=== PATIENT | female | born 1940 | race Caucasian/White ===

== ENCOUNTER 2020-08-19 15:26 | Inpatient (IN) | payer OTHER ==
--- OUTSIDE RECORDS SUMMARY | 2020-08-19 15:33 | XMS REPORT | Continuity of Care Document ---
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 AMS Active 10/11/[address] [address] 19 Displaced fracture 06/28/20 01/11/2019 [facility] of shaft of left 18 clavicle, initial encounter for closed fracture Fracture of 06/24/20 01/11/2019 [facility] unspecified part 18 of unspecified clavicle, initial encounter for closed fracture FELL-COLLAR BONE Active 06/24/20 [facility] PAIN 18 CVA LAST NIGHT Active 09/21/19 [facility] 17 CP Active 09/16/[address] 17 CHEST PAIN Active 09/16/19 [facility] 17 Fall from bed, 01/11/2019 [facility] initial encounter Contusion of left 01/11/2019 [facility] front wall of thorax, initial encounter Essential 05/02/2019 [facility] (primary) hypertension 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 Personal history 05/02/2019 [facility] of transient ischemic attack (TIA), and cerebral infarction without residual deficits 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 jail 05/02/2019 [facility] ast (current) use of antithrombotics/an tiplatelets 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 [facility] ast (current) use of aspirin Acute myocardial Resolved Problem 05/02/2019 [facility] infarction of anterior wall (disorder) Cerebrovascular Active Problem 05/02/2019 [facility] accident (disorder) Hypertensive Resolved Problem 05/02/2019 [facility] disorder, systemic arterial (disorder) Myocardial Active Problem 05/02/2019 [facility] infarction (disorder) Hemiplegia, 05/02/2019 [facility] unspecified affecting right dominant side 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 Paroxysmal atrial 05/02/2019 [facility] fibrillation Prediabetes 05/02/2019 [facility] Abnormal results 05/02/2019 [facility] of thyroid function studies NIHSS score 0 05/02/2019 [facility] Hyperlipidemia, 05/02/2019 [facility] unspecified Hypertensive 05/02/2019 [facility] urgency 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 [facility] (current) use of anticoagulants 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 Acute CVA Active Problem 10/28/2016 Family (cerebrovascular Silva gnostic accident) Mixed Active Diagnosis 11/23/2016 Family hyperlipidemia Diagn ostic Acute FL, anterior Active Problem 10/28/2016 Family wall Diagnostic Body mass index Active Diagnosis 10/06/2016 Fam jase (BMI) 23.0-23.9, Silva gnostic adult Benign essential Active Problem 11/23/2016 Fa ari hypertension Diagnos tic Coronary artery Active Diagnosis 11/23/2016 [facility] disease involving Di agnostic [place] coronary artery, angina presence unspecified, unspecified whether [place] or transplanted heart Anxiety Active Diagnosis 11/23/2016 Family Diagnostic Cerebrovascular Active Diagnosis 11/23/2016 Fam jase accident (CVA) Diagn ostic with involvement of left side of body Body mass index Active Diagnosis 10/28/2016 Fam jase (BMI) 22.0-22.9, Silva gnostic adult NON-ST ELEVATION Active [facility] (NSTEMI) MYOCARDIAL INF CEREBRAL Active [facility] st INFARCTION, UNSPECIFIED TRANSIENT CEREBRAL Active [facility] ISCHEMIC ATTACK, UNSP Medications Medication Details Route Status Patient Ordering Order Source Instructions Provider Date metoprolol Notes: (Same Inactive extended as: Toprol 2018 [facility] release XL) May split tab, but do not crush. amLODIPine 5 mg 5 mg = 1 tab, Active oral tablet PO, BID, # 60 2019 [facility] tab, 0 Refill(s), Pharmacy: [facility] [id number] atorvastatin 20 20 mg = 1 Active mg oral tablet tab, PO, 2019 [facility] Bedtime, # 30 tab, 0 Refill(s), Pharmacy: [facility] [id number] lisinopril 5 mg 5 mg = 1 tab, Active oral tablet PO, Daily, # [address] 30 tab, 0 Refill(s), Pharmacy: [facility] [id number] metoprolol 50 50 mg = 1 Active mg oral tablet, tab, PO, BID, 2019 [facility] extended # 60 tab, 0 release Refill(s), Pharmacy: [facility] [id number] apixaban 5 mg 5 mg = 1 tab, Active oral tablet PO, Q12H, # 2019 [facility] 60 tab, 0 Refill(s), Pharmacy: [facility] [id number] Eliquis Notes: Same Inactive as: Eliquis 2019 [facility] metoprolol Notes: (Same Inactive extended as: Toprol 2019 [facility] release XL) May split tab, but do not crush. Saline Flush Notes: (Same No Longer 0.9% as: BD Active 2018 [facility] Posiflush) Aspirin 325 MG Notes: Take No Longer Oral Tablet with food. Active 2018 [facility] clopidogrel Notes: (Same No Longer As: Plavix) Active 2018 [facility] metoprolol Notes: (Same Inactive extended as: Toprol 2019 [facility] release XL) Do Not Crush Lisinopril Notes: (Same No Longer as: Prinivil, Active 2018 [facility] Zestril) Aspirin Notes: Do not No Longer crush or Active 2018 [facility] chew. (Same As: Ecotrin) Saline Flush Notes: (Same No Longer 0.9% as: BD Active 2018 [facility] Posiflush) atorvastatin Notes: (Same No Longer As: Lipitor) Active 2018 [facility] Saline Flush Notes: (Same No Longer 0.9% as: BD Active 2018 [facility] Posiflush) Enoxaparin 59.091 mg, Inactive Route: SUB-Q, 2018 [facility] [id number], Dosing Weight 59.091, kg, Start date: 10/11/18 19:00:00 SHOE POLISHER, Duration: 30 day, Stop date: 11/10/18 7:00:00 SHOE POLISHER Acetaminophen Notes: (Same No Longer 325 MG / as: [place] Active 2018 [facility] Hydrocodone 325/5) Do Bitartrate 5 MG not exceed Oral Tablet 4gm/day of acetaminophen . Ondansetron Notes: (Same No Longer as: Zofran) Active 2018 [facility] Saline Flush Notes: (Same No Longer 0.9% as: BD Active 2018 [facility] Posiflush) Aspirin 81 mg, Daily, Active 0 Refill(s) 2018 [facility] Atenolol 25 MG 25 mg = 1 No Longer Oral Tablet tab, PO, Active 2018 [facility] Daily, # 30 tab, 0 Refill(s) metoprolol Notes: (Same Inactive tartrate as: 2018 [facility] Lopressor) Amlodipine Notes: (Same No Longer as: Norvasc) Active 2018 [facility] Aspirin 325 MG Notes: Take Inactive Oral Tablet with food. 2018 [facility] Metoprolol Notes: (Same No Longer as: Active 2018 [facility] Lopressor) Push over 2 minutes Nitroglycerin Notes: (Same No Longer 0.4 MG as:Nitroquick Active 2018 [facility] Sublingual , Nitrostat) Tablet "Do Not Crush" Sublingual tablet Hydralazine Notes: (Same No Longer Hydrochloride as: Active 2018 [facility] 25 MG Oral Apresoline) Tablet May interfere w/enteral feedings Take With Food. Labetalol Notes: (Same No Longer as: Active 2018 [facility] Normodyne, Trandate) Push over 2 minutes Give bolus over 2-3 minutes. Labetalol 20 mg, Route: Inactive IVP, Drug 2018 [facility] form: INJ, ONCE, Dosing Weight 59.091, kg, Priority: STAT, Start date: 10/11/18 13:46:00 SHOE POLISHER, Stop date: 10/11/18 13:46:00 SHOE POLISHER Acetaminophen 1 tab, PO, Inactive 300 MG / Q6H, PRN 2017 [facility] Codeine Pain, # 15 Phosphate 30 MG tab, 0 Oral Tablet Refill(s) [Tylenol with Codeine #3] Acetaminophen 1 tab, Route: Inactive 325 MG / PO, Drug 2017 [facility] Hydrocodone Form: TAB, Bitartrate 5 MG Dosing Weight Oral Tablet 61.364, kg, [[place] 5/325] ONCE, STAT, Start date: 06/24/18 10:02:00 CDT, Stop date: 06/24/18 10:02:00 CDT Lexapro 1 tablets Orally Active 5 MG Orally Nathani Once a day 2017 [facility] atorvastatin Notes: (Same No Longer as: Lipitor) Active 2016 [facility] clopidogrel Notes: (Same No Longer As: Plavix) Active 2016 [facility] Saline Flush Notes: (Same No Longer 0.9% as: BD Active 2016 [facility] Posiflush) Aspirin 325 MG Notes: (Do No Longer Enteric Coated Not Crush) Active 2016 [facility] ast Tablet Do not crush or chew. Sodium Chloride 100 mL, 100 No Longer 0.154 MEQ/ML ml/hr, Infuse Active 2016 [place] Injectable Over: 1 hr, Solution Route: IV, 100, Drug form: INJ, ONCE, Priority: STAT, Dosing Weight 59.091 kg, Start date: 09/21/16 23:10:00 SHOE POLISHER, Duration: 1 doses or times, Stop date: 09/21/16 23:10:00 SHOE POLISHER Enoxaparin Notes: (Same No Longer as: Lovenox) Active 2016 [facility] Saline Flush Notes: (Same No Longer 0.9% as: BD Active 2016 [facility] Posiflush) Docusate Sodium Notes: (Same No Longer H 100 MG Oral as: Colace) Active 2016 [facility] t Capsule (Do Not [Colace] Crush) Acetaminophen Notes: Same No Longer 325 MG / as [place] Active 2016 [facility] Hydrocodone 325-7.5mg Bitartrate 7.5 Do not exceed MG Oral Tablet 4gm/day of [[place] 7.5/325] acetaminophen . Morphine Notes: (Same No Longer as:MORPhine Active 2016 [facility] Sulfate) GI cocktail Notes: G.I. No Longer Cocktail = Active 2016 [facility] antacid with simethicone 22.5 mL - lidocaine viscous 7.5 mL Protonix Notes: Tablet No Longer should not be Active 2016 [facility] chewed or crushed. (Same as: Protonix) Hydralazine Notes: (Same No Longer as: Active 2016 [facility] Apresoline) Push over 5 minutes Zofran Notes: (Same No Longer as: Zofran) Active 2016 [facility] MEDICATION WASTE Product Size: 4 mg Product Wasted: ___ mg Restoril Notes: (Same No Longer As: Restoril) Active 2016 [facility] tramadol Notes: Not to No Longer hydrochloride exceed Active 2016 [facility] 50 MG Oral 400mg/day. Tablet (Same As: Ultram) Acetaminophen Notes: Do not No Longer exceed [address] [facility] gm/day. (Same as: Tylenol) Clonidine Notes: (Same No Longer Hydrochloride As: Catapres) Active 2016 [facility] 0.1 MG Oral Tablet Aspirin Notes: Take Inactive with food. 2016 [facility] Aspirin 325 mg, Inactive Route: PO, 2016 [facility] Drug form: TAB, ONCE, Dosing Weight 59.091, kg, Priority: STAT, Start date: 09/21/16 17:20:00 SHOE POLISHER, Stop date: 09/21/16 17:20:00 SHOE POLISHER Saline Flush Notes: (Same Inactive 0.9% as: BD 2016 [facility] Posiflush) Amlodipine Notes: (Same Inactive as: Norvasc) 2016 [facility] metoprolol 25 mg = 1 Active tartrate 25 mg tab, PO, 2016 [facility] oral tablet Q12H, # 60 tab, 0 Refill(s) lisinopril 20 20 mg = 1 Active mg oral tablet tab, PO, 2016 [facility] Q12H, # 60 tab, 0 Refill(s) clopidogrel 75 75 mg = 1 Active mg oral tablet tab, PO, 2016 [facility] Daily, # 30 tab, 0 Refill(s) atorvastatin 40 80 mg = 2 Active mg oral tablet tab, PO, 2016[facility] Bedtime, # 60 tab, 0 Refill(s) Aspirin 325 MG 325 mg = 1 Active Enteric Coated tab, PO, 2016 [facility] Tablet Daily, # 30 tab, 0 Refill(s) amLODIPine 5 mg 5 mg = 1 tab, Active oral tablet PO, BID, # 60 2016 [facility] ast tab, 0 Refill(s) clopidogrel Notes: (Same Inactive As: Plavix) 2016 [facility] Lovenox Notes: (Same No Longer as: Lovenox) Active 2016 [facility] Amlodipine Notes: (Same No Longer as: Norvasc) Active 2016 [facility] Ondansetron 4 mg, Route: Inactive IVP, Q8H, 2016 [facility] Dosing Weight 59.318, kg, PRN Nausea & Vomiting, Start date: 09/17/16 15:48:00 SHOE POLISHER, Duration: 30 day, Stop date: 10/17/16 15:47:00 SHOE POLISHER Sodium Chloride 750 mL, Rate: No Longer 0.154 MEQ/ML 75 ml/hr, Active 2016 [facility] Injectable Infuse over: Solution 10 hr, Route: IV, Dosing Weight 59.318 kg, Total Volume: 750, Start date: 09/17/16 15:48:00 SHOE POLISHER, Duration: 10 hr, Stop date: 09/18/16 1:47:00 SHOE POLISHER Acetaminophen Notes: Do not No Longer exceed [address] [facility] gm/day. (Same as: Tylenol) acetaminophen-c Notes: Do not No Longer odeine #[address] [facility] 4gm/day of acetaminophen . (Same as: Tylenol with Codeine # 3) metoprolol Notes: (Same No Longer tartrate as: Active 2016 [facility] Lopressor) Lisinopril Notes: (Same No Longer as: Prinivil, Active 2016 [facility] Zestril) Saline Flush Notes: (Same No Longer 0.9% as: BD Active 2016 [facility] Posiflush) Aspirin 325 MG Notes: (Do No Longer Enteric Coated Not Crush) Active 2016 [facility] ast Tablet Do not crush or chew. Sodium Chloride 250 mL, 250 Inactive 0.154 MEQ/ML ml/hr, Infuse 2016 [place] Injectable Over: 1 hr, Solution Route: IV, 250, Drug form: INJ, ONCALL, Priority: Routine, Dosing Weight 59.318 kg, Start date: 09/17/16 8:00:00 SHOE POLISHER, Duration: 1 doses or times, Stop date: 10/17/16 0:00:00 SHOE POLISHER Sodium Chloride 750 mL, Rate: No Longer 0.154 MEQ/ML 75 ml/hr, Active 2016 [facility] Injectable Infuse over: Solution 10 hr, Route: IV, Dosing Weight 59.318 kg, Total Volume: 750, Start date: 09/17/16 7:52:00 SHOE POLISHER, Duration: 24 hr, Stop date: 09/18/16 7:51:00 SHOE POLISHER Lipitor Notes: (Same No Longer as: Lipitor) Active 2016 [facility] amoxicillin 875 875 mg = 1 No Longer mg oral tablet tab, PO, Active 2016 [facility] Q12H, 0 Refill(s) Saline Flush Notes: (Same No Longer 0.9% as: BD Active 2016 [facility] Posiflush) Morphine Notes: (Same No Longer as:MORPhine Active 2016 [facility] Sulfate) Protonix Notes: Tablet No Longer should not be Active 2016 [facility] chewed or crushed. (Same as: Protonix) Hydralazine Notes: (Same No Longer as: Active 2016 [facility] Apresoline) Push over 5 minutes Lopressor Notes: (Same No Longer as: Active 2016 [facility] Lopressor) Push over 2 minutes GI cocktail Notes: G.I. No Longer Cocktail = Active 2016 [facility] antacid with simethicone 22.5 mL - lidocaine viscous 7.5 mL Acetaminophen Notes: Do not No Longer exceed [address] [facility] gm/day. (Same as: Tylenol) Zofran Notes: (Same No Longer as: Zofran) Active 2016 [facility] MEDICATION WASTE Product Size: 4 mg Product Wasted: ___ mg Docusate Sodium Notes: (Same No Longer H 100 MG Oral as: Colace) Active 2016 [facility] Capsule (Do Not [Colace] Crush) Acetaminophen Notes: Same No Longer 325 MG / as [place] Active 2016 [facility] Hydrocodone 325-7.5mg Bitartrate 7.5 Do not exceed MG Oral Tablet 4gm/day of [[place] 7.5/325] acetaminophen . Nitroglycerin Notes: (Same No Longer as:Nitroquick Active 2016 [facility] , Nitrostat) "Do Not Crush" Sublingual tablet Labetalol Notes: (Same No Longer as: Active 2016 [facility] Normodyne, Trandate) Push over 2 minutes Give bolus over 2-3 minutes. Heparin - one 3,600 unit, No Longer time bolus for 3.6 mL, Active 2016 [facility] ACS Route: IVP, Drug form: INJ, ONCE, Dosing Weight 61.364, kg, Priority: STAT, Start date: 09/16/16 23:28:00 SHOE POLISHER, Stop date: 09/16/16 23:28:00 SHOE POLISHER Heparin 60 Route: IVP, No Longer unit/kg Bolus PRN, 3,600 Active 2016 [facility] (Heparin Dosing unit, 3.6 mL, Weight) Drug form: INJ, PRN, Heparin Protocol, Start date: 09/16/16 23:28:00 SHOE POLISHER Stop date: 10/16/16 23:27:00 SHOE POLISHER, 30 day Heparin 30 Route: IVP, No Longer unit/kg Bolus PRN, 1,800 Active 2016 [facility] (Heparin Dosing unit, 1.8 mL, Weight) Drug form: INJ, PRN, Heparin Protocol, Start date: 09/16/16 23:28:00 SHOE POLISHER Stop date: 10/16/16 23:27:00 SHOE POLISHER, 30 day heparin 500 mL, Rate: No Longer additive 25,000 14.55 ml/hr, Active 2016 [facility] [12 Infuse over: unit/kg/hr] + 34.4 hr, Premix Diluent Route: IV, Dextrose 5% 500 Dosing Weight mL 60.64 kg, Total Volume: 500 mL, Start date: 09/16/16 23:28:00 SHOE POLISHER, Duration: 30 day, Stop date: 10/16/16 23:27:00 SHOE POLISHER Aspirin Notes: Take No Longer with food. Active 2016 [facility] Saline Flush Notes: (Same No Longer 0.9% as: BD Active 2016 [facility] Posiflush) Amlodipine 1 tablet Orally Active 5 MG Orally Nathani Family Besylate Once a day Diagnostic Metoprolol 1 tablet with Orally Active 25 MG Orally Nathani Fa ari Tartrate food Twice a day Diagnostic Plavix 1 tablet Orally Active 75 MG Orally Nathani Family Once a day Diagnostic Atorvastatin 1 tablet Orally Active 80 MG Orally Nathani Famil y Calcium Once a day Diagnostic Lisinopril 1 tablet Orally Active 20 MG Orally Nathani Family once a day Diagnostic Aspirin 1 tablet Orally Active 325 MG Orally Nathani Family Once a day Diagnostic Lisinopril 1 tablet Orally Active 40 MG Orally Nathani Family once a day Diagnostic Lexapro 1 tablets Orally Active 5 MG Orally Nathani Family Once a day Diagnostic Allergies, Adverse Reactions, Alerts Substance Category Reaction Severity Reaction Status Date Comments S ource type Reported Sulfa Adverse Info Not Adverse Active Famil y antibiotics Reaction Available Reaction 7 Diagnostic sulfa drugs Assertion Drug Active allergy [facility] Immunizations No Data Provided for This Section Results Order Name Results Value Reference Date Interpretation Comments [facility] ELECTROLYT AGAP 9.6 10.0 - 10/13 ES 20.0 [facility] ELECTROLYT Glucose Lvl 96 70 - 99 10/13 [facility] ELECTROLYT BUN 13 7 - 22 10/13 [facility] ELECTROLYT Creatinine 0.83 0.50 - 10/13 ES Lvl 1.40 /2018 [facility] ELECTROLYT Sodium Lvl 141 135 - 145 10/13 [facility] ELECTROLYT Potassium 3.6 3.5 - 5.1 10/13 ES Lvl [facility] Chloride Lvl 105 95 - 109 10/13 [facility] ELECTROLYT CO2 30 24 - 32 10/13 [facility] ELECTROLYT Calcium Lvl 9.1 8.5 - 10.5 10/13 [facility] ELECTROLYT eGFR 68 10/13 [facility] Comment: The [facility] eGFR is calculated using the CKD-EPI formula. In most young, healthy individuals the eGFR will be >90 mL/min/1.73m2 . The eGFR declines with age. An eGFR of 60-89 may be normal in some populations, particularly the elderly, for whom the CKD-EPI formula has not been extensively validated. Use of the eGFR is not recommended in the following populations:< br/>
[place]oula viduals with unstable creatinine concentration s, including patients and those with serious co-morbid conditions.<b r/>
Patie nts with extremes in muscle mass or diet.

The data above are obtained from the National Kidney Disease Education Program (NKDEP) which additionally recommends that when the eGFR is used in patients with extremes of body mass index for purposes of drug dosing, the eGFR should be multiplied by the estimated BMI. HEMATOLOGY Segs 70.6 45.0 - 02 MH 75.0 /2018 [facility] HEMATOLOGY Lymphocytes 15.9 20.0 - 10/13 MH 40.0 /2018 [facility] HEMATOLOGY Monocytes 10.2 2.0 - 12.0 / /2018 [facility] HEMATOLOGY Eosinophils 2.8 0.0 - 4.0 / /2018 [facility] HEMATOLOGY Basophils 0.5 0.0 - 1.0 10/13 [facility] HEMATOLOGY Neutrophils 5.3 1.5 - 8.1 10/13 MH # /2018 [facility] HEMATOLOGY Lymphocytes 1.2 1.0 - 5.5 10/13 MH # /2018 [facility] HEMATOLOGY Monocytes # 0.8 0.0 - 0.8 10/13 [facility] HEMATOLOGY Eosinophils 0.2 0.0 - 0.5 10/13 MH # /2018 [facility] HEMATOLOGY WBC 7.5 3.7 - 10.4 10/13 /2018 [facility] HEMATOLOGY RBC 4.07 4.20 - 10/13 5.40 /2018 [facility] HEMATOLOGY Hgb 12.9 12.0 - 10/13 16.0 /2018 [facility] HEMATOLOGY Hct 38.8 36.0 - 10/13 48.0 /2018 [facility] HEMATOLOGY MCV 95.4 80.0 - 10/[address] [facility] HEMATOLOGY MCH 31.7 27.0 - 02 MH 31.0 /2018 [facility] HEMATOLOGY MCHC 33.2 32.0 - 10/13 36.0 /2018 [facility] HEMATOLOGY RDW 14.6 11.5 - 10/[address] [facility] HEMATOLOGY Platelet 249 133 - 450 10/13 [facility] HEMATOLOGY MPV 8.0 7.4 - 10.4 10/13 [facility] CEFUROXIME Culture: >100,000 CFU/mL Escherichia coli 10/12 [facility] :[facility]US[facility]:PT:I Urine 10,000 - 50,000 CFU/mL Skin Melly /2018 [facility] [place] QN:SERGIO CEFUROXIME Escherichia Escherichi 10/12 :[facility] [place]PT:I coli a coli /2018 [facility] SOLATE[place] QN:SERGIO URINE AND UA Color Yellow Yellow 10/12 STOOL *NA* [facility] (10/12/18 9:49 AM) URINE AND UA Turbidity Slight Clear 10/12 STOOL *ABN* [facility] (10/12/18 9:49 AM) URINE AND UA Spec Grav 1.016 <=1.030 10/12 STOOL /2018 [facility] URINE AND UA pH 6.0 5.0 - 8.0 10/12 [facility] URINE AND UA Protein Negative Negative 10/12 [facility] (10/12/18 9:49 AM) /[address] URINE AND UA Glucose Negative Negative 10/12 STOOL *NA [facility] (10/12/18 9:49 AM) URINE AND UA Ketones Negative Negative 10/12 STOOL * [facility] (10/12/18 9:49 AM) URINE AND UA Bili Negative Negative 10/12 STOOL *NA [facility] (10/12/18 9:49 AM) URINE AND UA Blood Negative Negative 10/12 [facility] (10/12/18 9:49 AM) [facility] URINE AND UA <=1.0 0.1 - 1.0 10/12 STOOL Urobilinogen mg/dL [facility] URINE AND UA Nitrite Positive Negative 10/12 STOOL *ABN [facility] (10/12/18 9:49 AM) URINE AND UA Leuk Est Large Negative 10/12 STOOL *ABN* [facility] (10/12/18 9:49 AM) URINE AND UA Sq Epi Occasional Few /LPF 10/12 STOOL /LPF /2018 [facility] URINE AND UA WBC 15 0 - 5 10/12 [facility] URINE AND UA RBC 3 0 - 2 10/[address] [facility] URINE AND UA Bacteria Occasional None Seen 10/12 STOOL /HPF /HPF [facility] URINE AND UA Mucus Few /LPF None Seen 10/12 STOOL /LPF /2018 [facility] CHEM PANEL Creatinine 0.80 0.50 - 10/12 Lvl 1.40 /2018 [facility] CHEM PANEL Glucose Lvl 91 70 - 99 02/ [facility] CHEM PANEL BUN 15 7 - 22 / [facility] CHEM PANEL eGFR 70 / Result Comment: The [facility] eGFR is calculated using the CKD-EPI formula. In most young, healthy individuals the eGFR will be >90 mL/min/1.73m2 . The eGFR declines with age. An eGFR of 60-89 may be normal in some populations, particularly the elderly, for whom the CKD-EPI formula has not been extensively validated. Use of the eGFR is not recommended in the following populations:< br/>
[place] viduals with unstable creatinine concentration s, including patients and those with serious co-morbid conditions.<b r/>
Patie nts with extremes in muscle mass or diet.

The data above are obtained from the National Kidney Disease Education Program (NKDEP) which additionally recommends that when the eGFR is used in patients with extremes of body mass index for purposes of drug dosing, the eGFR should be multiplied by the estimated BMI. CHEM PANEL Sodium Lvl 142 135 - 145 10/12 [facility] CHEM PANEL Potassium 3.9 3.5 - 5.1 10/12 [facility] CHEM PANEL CO2 28 24 - 32 10/12 [facility] CHEM PANEL Calcium Lvl 8.8 8.5 - 10.5 10/12 [facility] CHEM PANEL Chloride Lvl 107 95 - 109 10/12 [facility] CHEM PANEL AGAP 10.9 10.0 - 02/ MH 20.0 [facility] ELECTROLYT AGAP 10.9 10.0 - / MH ES 20.0 [facility] ELECTROLYT Glucose Lvl 91 70 - 99 / MH [facility] ELECTROLYT BUN 15 7 - 22 / [facility] ELECTROLYT Creatinine 0.80 0.50 - 02/ MH ES Lvl 1.40 /2018 [facility] ELECTROLYT Sodium Lvl 142 135 - 145 10/12 [facility] ELECTROLYT Potassium 3.9 3.5 - 5.1 10/12 [facility] ES Lvl [facility] ELECTROLYT Chloride Lvl 107 95 - 109 / [facility] ELECTROLYT CO2 28 24 - 32 / MH ES [facility] ELECTROLYT Calcium Lvl 8.8 8.5 - 10.5 10/[address] [facility] ELECTROLYT eGFR 70 10/12 Result Comment: The [facility] eGFR is calculated using the CKD-EPI formula. In most young, healthy individuals the eGFR will be >90 mL/min/1.73m2 . The eGFR declines with age. An eGFR of 60-89 may be normal in some populations, particularly the elderly, for whom the CKD-EPI formula has not been extensively validated. Use of the eGFR is not recommended in the following populations:< br/>
Roula viduals with unstable creatinine concentration s, including patients and those with serious co-morbid conditions.<b r/>
Patie nts with extremes in muscle mass or diet.

The data above are obtained from the National Kidney Disease Education Program (NKDEP) which additionally recommends that when the eGFR is used in patients with extremes of body mass index for purposes of drug dosing, the eGFR should be multiplied by the estimated BMI. HEMATOLOGY WBC 6.2 3.7 - 10.4 10/12 [facility] HEMATOLOGY RBC 3.80 4.20 - 10/12 MH 5.40 /2018 [facility] HEMATOLOGY Hgb 12.0 12.0 - 10/[address] [facility] HEMATOLOGY Hct 36.1 36.0 - 10/[address] [facility] HEMATOLOGY MCV 94.9 80.0 - 10/12 98.0 /2018 [facility] HEMATOLOGY MCH 31.7 27.0 - 10/12 31.0 /2018 [facility] HEMATOLOGY MCHC 33.4 32.0 - 10/12 36.0 /2018 [facility] HEMATOLOGY RDW 14.2 11.5 - 02 MH 14.5 /2019 [facility] HEMATOLOGY Platelet 233 133 - 450 10/12 [facility] HEMATOLOGY MPV 8.1 7.4 - 10.4 10/12 [facility] HEMATOLOGY Segs 65.0 45.0 - 02/ MH 75.0 /2019 [facility] HEMATOLOGY Lymphocytes 20.1 20.0 - [address] [facility] HEMATOLOGY Monocytes 11.0 2.0 - 12.0 10/12 [facility] HEMATOLOGY Eosinophils 3.1 0.0 - 4.0 10/12 [facility] HEMATOLOGY Basophils 0.8 0.0 - 1.0 10/12 [facility] HEMATOLOGY Neutrophils 4.0 1.5 - 8.1 02/ MH # /2018 [facility] HEMATOLOGY Lymphocytes 1.3 1.0 - 5.5 / MH # /2018 [facility] HEMATOLOGY Monocytes # 0.7 0.0 - 0.8 / MH /2018 [facility] HEMATOLOGY Eosinophils 0.2 0.0 - 0.5 / MH # /2018 [facility] LIPIDS Trig 76 <=149 /03 MH mg/dL /2018 [facility] LIPIDS Chol 134 <=199 / MH mg/dL /2018 [facility] LIPIDS HDL 47 >=61 mg/dL 10/12 MH /2018 [facility] LIPIDS LDL 72 <=99 mg/dL 10/12 [facility] (Calculated) [facility] LIP[facility] VLDL 15 10/12 /2018 [facility] LIPIDS CHD Risk 2.85 3.90 - 10/[address] [facility] SPECIAL Hgb A1C 5.9 <=5.6 % 10/12 CHEMISTRY /2018 [facility] CARDIAC Troponin-I <0.02 0.00 - 10/[address] [facility] LIPIDS CHD Risk 2.79 3.90 - 10/12 5.80 [facility] LIPIDS Trig 71 <=149 /03 mg/dL /2018 [facility] LIPIDS Chol 148 <=199 / mg/dL /2018 [facility] LIPIDS HDL 53 >=61 mg/dL 10/12 /2018 [facility] LIPIDS LDL 81 <=99 mg/dL 10/12 [facility] (Calculated) [facility] LIPIDS VLDL 14 10/12 /2018 [facility] SPECIAL Hgb A1C 5.8 <=5.6 % 10/12 CHEMISTRY /2018 [facility] CARDIAC Troponin-I <0.02 0.00 - [address] [facility] CHEM PANEL Calcium Lvl 9.2 8.5 - 10.5 10/12 /2018 [facility] CHEM PANEL Magnesium 1.8 1.8 - 2.4 / Lvl /2018 [facility] CHEM PANEL Phosphorus 2.9 2.5 - 4.5 10/12 /2018 [facility] HEMATOLOGY PT 13.7 12.0 - 02/ MH 14.7 /2018 [facility] HEMATOLOGY PTT 30.3 22.9 - 02/ 35.8 /2019 [facility] HEMATOLOGY INR 1.07 0.85 - 02/ 1.17 [facility] URINE AND UA Color Yellow Yellow 10/11 STOOL *NA* /2018 [facility] (10/11/18 1:58 PM) URINE AND UA Turbidity Slight Clear 10/11 STOOL *ABN* [facility] (10/11/18 1:58 PM) URINE AND UA Spec Grav 1.009 <=1.030 10/[address] [facility] URINE AND UA pH 7.0 5.0 - 8.0 10/[address] [facility] URINE AND UA Protein Negative Negative 10/11 [facility] (10/11/18 1:58 PM) /[address] URINE AND UA Glucose Negative Negative 10/11 STOOL *NA [facility] (10/11/18 1:58 PM) URINE AND UA Ketones Negative Negative 10/11 STOOL *NA [facility] (10/11/18 1:58 PM) URINE AND UA Bili Negative Negative 10/11 STOOL *NA [facility] (10/11/18 1:58 PM) URINE AND UA Blood Small Negative 10/11 STOOL * [facility] (10/11/18 1:58 PM) URINE AND UA <=1.0 0.1 - 1.0 10/11 STOOL Urobilinogen mg/dL /2018 [facility] URINE AND UA Nitrite Positive Negative 10/11 STOOL *ABN [facility] (10/11/18 1:58 PM) URINE AND UA Leuk Est Trace Negative 10/11 STOOL *ABN [facility] (10/11/18 1:58 PM) URINE AND UA Sq Epi Occasional Few /LPF 10/11 STOOL /LPF [facility] URINE AND UA WBC 1 0 - 5 10/11 [facility] URINE AND UA RBC 3 0 - 2 10/[address] [facility] URINE AND UA Bacteria Occasional None Seen 10/11 STOOL /HPF /HPF [facility] URINE AND UA Mucus Few /LPF None Seen 10/11 STOOL /LPF [facility] CARDIAC Troponin-I <0.02 0.00 - 10/[address] [facility] CARDIAC BNP 364 <=100 10/11 ENZ[address] pg/mL [facility] CHEM PANEL Glucose Lvl 94 70 - 99 10/11 [facility] CHEM PANEL BUN 14 7 - 22 10/11 [facility] CHEM PANEL Creatinine 0.97 0.50 - 10/11 Lvl 1.40 /2018 [facility] CHEM PANEL Sodium Lvl 138 135 - 145 10/11 [facility] CHEM PANEL Potassium 4.4 3.5 - 5.1 10/11 Lvl [facility] CHEM PANEL Chloride Lvl 103 95 - 109 10/11 [facility] CHEM PANEL CO2 29 24 - 32 10/11 [facility] CHEM PANEL Total 7.9 6.4 - 8.4 10/11 [facility] CHEM PANEL Albumin Lvl 4.0 3.5 - 5.0 10/11 [facility] CHEM PANEL ALT 21 0 - 65 10/11 [facility] CHEM PANEL AST 48 0 - 37 10/11 [facility] CHEM PANEL Alk Phos 69 39 - 136 10/11 [facility] CHEM PANEL Bili Total 0.8 0.2 - 1.3 10/11 [facility] CHEM PANEL AGAP 10.4 10.0 - 02 MH 20.0 /2018 [facility] CHEM PANEL B/C Ratio 14 6 - 25 10/11 [facility] CHEM PANEL Globulin 3.9 2.7 - 4.2 10/11 [facility] CHEM PANEL A/G Ratio 1.0 0.7 - 1.6 10/11 [facility] CHEM PANEL eGFR 56 10/11 Result Comment: The [facility] eGFR is calculated using the CKD-EPI formula. In most young, healthy individuals the eGFR will be >90 mL/min/1.73m2 . The eGFR declines with age. An eGFR of 60-89 may be normal in some populations, particularly the elderly, for whom the CKD-EPI formula has not been extensively validated. Use of the eGFR is not recommended in the following populations:< br/>
Roula viduals with unstable creatinine concentration s, including patients and those with serious co-morbid conditions.<b r/>
Patie nts with extremes in muscle mass or diet.

The data above are obtained from the National Kidney Disease Education Program (NKDEP) which additionally recommends that when the eGFR is used in patients with extremes of body mass index for purposes of drug dosing, the eGFR should be multiplied by the estimated BMI. CHEM PANEL Magnesium 1.9 1.8 - 2.4 10/11 [facility] CHEM PANEL Phosphorus 3.0 2.5 - 4.5 10/11 [facility] HEMATOLOGY WBC 8.3 3.7 - 10.4 02/ /2019 [facility] HEMATOLOGY RBC 4.28 4.20 - 02/ MH 5.40 /2019 [facility] HEMATOLOGY Hgb 13.4 12.0 - 02/ MH 16.0 /2018 [facility] HEMATOLOGY Hct 40.9 36.0 - 02/ MH 48.0 /2018 [facility] HEMATOLOGY MCV 95.6 80.0 - 02/ MH 98.0 /2019 [facility] HEMATOLOGY MCH 31.3 27.0 - 02/ MH 31.0 /2018 [facility] HEMATOLOGY MCHC 32.7 32.0 - 02/ MH 36.0 /2018 [facility] HEMATOLOGY RDW 14.1 11.5 - 02/ MH 14.5 /2019 [facility] HEMATOLOGY Platelet 299 133 - 450 02/ /2018 [facility] HEMATOLOGY MPV 8.6 7.4 - 10.4 02/ /2018 [facility] HEMATOLOGY INR 0.93 0.85 - / 1.17 /2018 [facility] HEMATOLOGY PT 12.3 12.0 - 02/ 14.7 /2018 [facility] HEMATOLOGY PTT 29.0 22.9 - 02/ 35.8 /2019 [facility] HEMATOLOGY Segs 71.6 45.0 - 02/ 75.0 /2019 [facility] HEMATOLOGY Lymphocytes 18.5 20.0 - 02/ 40.0 /2018 [facility] HEMATOLOGY Monocytes 7.5 2.0 - 12.0 02/ /2018 [facility] HEMATOLOGY Eosinophils 2.1 0.0 - 4.0 02/ /2018 [facility] HEMATOLOGY Basophils 0.3 0.0 - 1.0 02/ /2018 [facility] HEMATOLOGY Neutrophils 6.0 1.5 - 8.1 02/ MH # /2019 [facility] HEMATOLOGY Lymphocytes 1.5 1.0 - 5.5 02/ # /2018 [facility] HEMATOLOGY Monocytes # 0.6 0.0 - 0.8 / /2018 [facility] HEMATOLOGY Eosinophils 0.2 0.0 - 0.5 / MH # /2018 [facility] CHEM PANEL Phosphorus 3.4 2.5 - 4.5 09/23 [facility] CHEM PANEL Magnesium 2.3 1.8 - 2.4 09/23 Lv [facility] ELECTROLYT AGAP 9.9 10.0 - 09/23 ES 20.0 [facility] ELECTROLYT eGFR 71 09/23 Result Comment: The [facility] eGFR is calculated using the CKD-EPI formula. In most young, healthy individuals the eGFR will be >90 mL/min/1.73m2 . The eGFR declines with age. An eGFR of 60-89 may be normal in some populations, particularly the elderly, for whom the CKD-EPI formula has not been extensively validated. Use of the eGFR is not recommended in the following populations:< br/>
Roula viduals with unstable creatinine concentration s, including patients and those with serious co-morbid conditions.<b r/>
Patie nts with extremes in muscle mass or diet.

The data above are obtained from the National Kidney Disease Education Program (NKDEP) which additionally recommends that when the eGFR is used in patients with extremes of body mass index for purposes of drug dosing, the eGFR should be multiplied by the estimated BMI. ELECTROLYT Sodium Lvl 145 135 - 145 09/23 [facility] ELECTROLYT BUN 10 7 - 22 09/23 [facility] ELECTROLYT Glucose Lvl 89 70 - 99 09/23 [facility] ELECTROLYT Creatinine 0.81 0.50 - 09/[address] [facility] ELECTROLYT Calcium Lvl 8.9 8.5 - 10.5 09/23 [facility] ELECTROLYT Potassium 3.9 3.5 - 5.1 09/[address] [facility] ELECTROLYT Chloride Lvl 107 95 - 109 09/23 [facility] ELECTROLYT CO2 32 24 - 32 09/23 [facility] HEMATOLOGY Platelet 272 133 - 450 09/23 [facility] HEMATOLOGY MPV 8.2 7.4 - 10.4 09/23 [facility] HEMATOLOGY RDW 13.1 11.5 - 09/[address] [facility] HEMATOLOGY MCH 32.2 27.0 - 09/[address] [facility] HEMATOLOGY MCHC 33.9 32.0 - 09/[address] [facility] HEMATOLOGY MCV 95.1 80.0 - 09/[address] [facility] HEMATOLOGY Hgb 11.7 12.0 - 09/[address] [facility] HEMATOLOGY Hct 34.5 36.0 - 09/[address] [facility] HEMATOLOGY WBC 6.1 3.7 - 10.4 09/23 [facility] HEMATOLOGY RBC 3.63 4.20 - 09/23 MH 5.40 /2017 [facility] HEMATOLOGY Lymphocytes 21.3 20.0 - 09/23 MH 40.0 [facility] HEMATOLOGY Segs 62.6 45.0 - 09/23 MH 75.0 /2016 [facility] HEMATOLOGY Segs-Bands # 3.8 1.5 - 8.1 09/23 [facility] HEMATOLOGY Basophils 0.9 0.0 - 1.0 09/23 [facility] HEMATOLOGY Eosinophils 3.8 0.0 - 4.0 09/23 [facility] HEMATOLOGY Monocytes 11.4 2.0 - 12.0 09/23 [facility] HEMATOLOGY Basophils # 0.1 0.0 - 0.2 09/23 [facility] HEMATOLOGY Eosinophils 0.2 0.0 - 0.5 09/23 MH # /2016 [facility] HEMATOLOGY Monocytes # 0.7 0.0 - 0.8 09/23 [facility] HEMATOLOGY Lymphocytes 1.3 1.0 - 5.5 09/23 MH # /2016 [facility] LIPIDS CHD Risk 2.55 3.90 - 09/22 5.80 /2016 [facility] LIPIDS Trig 44 <=149 09/22 mg/dL [facility] LIPIDS Chol 140 <=199 09/22 mg/dL [facility] LIPIDS HDL 55 >=61 mg/dL 09/22 [facility] LIPIDS LDL 76 <=99 mg/dL 09/22 (Calculated) [facility] LIPIDS VLDL 9 09/22 [facility] SPECIAL Hgb A1C 5.3 <=5.6 % 09/[address] [facility] URINE AND UA Mucus Few /LPF None Seen 09/22 STOOL /LPF [facility] URINE AND UA RBC 0-2 /HPF 0 - 2 09/22 STOOL [facility] URINE AND UA WBC 3-5 /HPF None Seen 09/22 STOOL /HPF [facility] URINE AND UA Bacteria Few /HPF None Seen 09/22 STOOL /HPF [facility] URINE AND UA Sq Epi Few /LPF Few /LPF 09/22 STOOL [facility] URINE AND UA Leuk Est Small Negative 09/22 STOOL *ABN* /2016 [facility] (09/21/16 11:00 PM) URINE AND UA Nitrite Negative Negative 09/22 STOOL (09/21/16 11:00 PM) /2016 [place] URINE AND UA Blood Trace Negative 09/22 STOOL *ABN* [facility] (09/21/16 11:00 PM) URINE AND UA 0.2 0.1 - 1.0 09/22 STOOL Urobilinogen /2016 [facility] URINE AND UA Protein Negative Negative 09/22 [facility] (09/21/16 11:00 PM) [place] URINE AND UA Glucose Negative Negative 09/22 [facility] (09/21/16 11:00 PM) [place] URINE AND UA Bili Negative Negative 09/22 STOOL *NA* [facility] (09/21/16 11:00 PM) URINE AND UA Ketones Negative Negative 09/22 STOOL *NA* [facility] (09/21/16 11:00 PM) URINE AND UA Turbidity Clear Clear 09/22 [facility] (09/21/16 11:00 PM) [place] URINE AND UA pH 6.0 5.0 - 8.0 09/22 STOOL [facility] URINE AND UA Spec Grav 1.010 <=1.030 09/22 STOOL [facility] URINE AND UA Color Yellow Yellow 09/22 STOOL *NA* [facility] (09/21/16 11:00 PM) URINE AND UA pH 6.0 5.0 - 8.0 09/21 STOOL [facility] URINE AND UA Spec Grav 1.015 <=1.030 09/21 STOOL [facility] URINE AND UA Protein Negative Negative 09/21 [facility] (09/21/16 5:20 PM) [place] URINE AND UA Leuk Est Trace Negative 09/21 STOOL *ABN* [facility] (09/21/16 5:20 PM) URINE AND UA Nitrite Negative Negative 09/21 [facility] (09/21/16 5:20 PM) [place] URINE AND UA 0.2 0.1 - 1.0 09/21 STOOL Urobilinogen [facility] URINE AND UA Blood Trace Negative 09/21 STOOL *ABN* [facility] (09/21/16 5:20 PM) URINE AND UA Bili Negative Negative 09/21 STOOL *NA* [facility] (09/21/16 5:20 PM) URINE AND UA Ketones Negative Negative 09/21 STOOL *NA* [facility] (09/21/16 5:20 PM) URINE AND UA Glucose Negative Negative 09/21 [facility]OOL (09/21/16 5:20 PM) [place] URINE AND UA Color Yellow Yellow 09/21 STOOL *NA* /2016 [facility] (09/21/16 5:20 PM) URINE AND UA Turbidity Clear Clear 09/21 STOOL (09/21/16 5:20 PM) [place] URINE AND UA RBC 0-2 /HPF 0 - 2 09/21 STOOL [facility] URINE AND UA Mucus Few /LPF None Seen 09/21 STOOL /LPF /2016 [facility] URINE AND UA Bacteria Occasional None Seen 09/21 STOOL /HPF /HPF [facility] URINE AND UA Sq Epi Occasional Few /LPF 09/21 STOOL /LPF /2016 [facility] URINE AND UA WBC 0-2 /HPF None Seen 09/21 STOOL /HPF [facility] CARDIAC CK MB 2.8 0.5 - 3.6 09/[address] [facility] CARDIAC Total CK 162 12 - 191 09/[address] [facility] CARDIAC Troponin-I 0.91 0.00 - 09/21 Result ENZYMES 0.40 Comment: [facility] Critical Result(s) called to Radha Urbina at 09/21/2016 16:20 by KENNEY. Read back OK. CARDIAC CK MB Index 1.7 0.0 - 2.5 09/[address] [facility] CHEM PANEL eGFR 81 09/21 Result Comment: The [facility] eGFR is calculated using the CKD-EPI formula. In most young, healthy individuals the eGFR will be >90 mL/min/1.73m2 . The eGFR declines with age. An eGFR of 60-89 may be normal in some populations, particularly the elderly, for whom the CKD-EPI formula has not been extensively validated. Use of the eGFR is not recommended in the following populations:< br/>
[place]oul[place] viduals with unstable creatinine concentration s, including patients and those with serious co-morbid conditions.<b r/>
Patie nts with extremes in muscle mass or diet.

The data above are obtained from the National Kidney Disease Education Program (NKDEP) which additionally recommends that when the eGFR is used in patients with extremes of body mass index for purposes of drug dosing, the eGFR should be multiplied by the estimated BMI. CHEM PANEL CO2 26 24 - 32 09/21 [facility] CHEM PANEL Creatinine 0.73 0.50 - 09/21 Lvl 1.40 /2016 [facility] CHEM PANEL Glucose Lvl 88 70 - 99 09/21 [facility] CHEM PANEL Calcium Lvl 9.1 8.5 - 10.5 09/21 [facility] CHEM PANEL Total 7.5 6.4 - 8.4 09/21 [facility] CHEM PANEL Sodium Lvl 140 135 - 145 09/21 [facility] CHEM PANEL Potassium 4.6 3.5 - 5.1 09/21 Lvl [facility] CHEM PANEL Chloride Lvl 108 95 - 109 09/21 [facility] CHEM PANEL ALT 27 0 - 65 09/21 [facility] CHEM PANEL BUN 8 7 - 22 09/21 [facility] CHEM PANEL B/C Ratio 11 6 - 25 09/21 [facility] CHEM PANEL A/G Ratio 0.9 0.7 - 1.6 09/21 [facility] CHEM PANEL Albumin Lvl 3.5 3.5 - 5.0 09/21 [facility] CHEM PANEL AGAP 10.6 10.0 - 09/21 20.0 [facility] CHEM PANEL AST 68 0 - 37 09/21 [facility] CHEM PANEL Alk Phos 63 39 - 136 09/21 [facility] CHEM PANEL Bili Total 0.7 0.2 - 1.3 09/21 [facility] CHEM PANEL Globulin 4.0 2.7 - 4.2 09/21 [facility] HEMATOLOGY INR 0.91 0.85 - 09/21 1.17 [facility] HEMATOLOG[facility] PT 12.5 12.0 - 09/21 14.7 [facility] HEMATOLOGY MPV 8.2 7.4 - 10.4 09/21 [facility] HEMATOLOGY Platelet 295 133 - 450 09/21 [facility] HEMATOLOGY WBC 7.6 3.7 - 10.4 09/21 [facility] HEMATOLOGY RBC 4.03 4.20 - 09/[address] [facility] HEMATOLOGY Hgb 13.0 12.0 - 09/21 16.0 [facility] HEMATOLOGY Hct 38.3 36.0 - 09/21 48.0 /2016 [facility] HEMATOLOGY MCH 32.2 27.0 - 09/21 31.0 [facility] HEMATOLOGY MCV 94.9 80.0 - 09/21 MH 98.0 /2016 [facility] HEMATOLOGY MCHC 33.9 32.0 - 09/21 MH 36.0 /2017 [facility] HEMATOLOGY RDW 13.2 11.5 - 09/21 MH 14.5 /2016 [facility] HEMATOLOGY PTT 27.9 22.9 - 09/21 MH 35.8 /2016 [facility] HEMATOLOGY Segs 74.4 45.0 - 09/21 MH 75.0 /2016 [facility] HEMATOLOGY Lymphocytes 1.1 1.0 - 5.5 09/21 MH # /2017 [facility] HEMATOLOGY Monocytes # 0.7 0.0 - 0.8 09/21 [facility] HEMATOLOGY Eosinophils 2.1 0.0 - 4.0 09/21 [facility] HEMATOLOGY Segs-Bands # 5.6 1.5 - 8.1 09/21 [facility] HEMATOLOGY Basophils 0.5 0.0 - 1.0 09/21 [facility] HEMATOLOGY Eosinophils 0.2 0.0 - 0.5 09/21 MH # /2016 [facility] HEMATOLOGY Monocytes 9.0 2.0 - 12.0 09/21 [facility] HEMATOLOGY Lymphocytes 14.0 20.0 - 09/21 MH 40.0 [facility] CHEM PANEL Magnesium 2.0 1.8 - 2.4 09/18 MH Lvl [facility] CHEM PANEL Creatinine 0.71 0.50 - 09/18 Lvl 1.40 [facility] CHEM PANEL BUN 13 7 - 22 09/18 [facility] CHEM PANEL Potassium 3.6 3.5 - 5.1 09/18 Lvl /2016 [facility] CHEM PANEL Sodium Lvl 139 135 - 145 09/18 [facility] CHEM PANEL Glucose Lvl 86 70 - 99 09/18 [facility] CHEM PANEL Calcium Lvl 8.6 8.5 - 10.5 09/18 [facility] CHEM PANEL CO2 28 24 - 32 09/18 [facility] CHEM PANEL Chloride Lvl 107 95 - 109 09/18 [facility] CHEM PANEL AGAP 7.6 10.0 - 09/18 20.0 [facility] CHEM PANEL eGFR 82 09/18 Result Comment: The [facility] eGFR is calculated using the CKD-EPI formula. In most young, healthy individuals the eGFR will be >90 mL/min/1.73m2 . The eGFR declines with age. An eGFR of 60-89 may be normal in some populations, particularly the elderly, for whom the CKD-EPI formula has not been extensively validated. Use of the eGFR is not recommended in the following populations:< br/>
Roula viduals with unstable creatinine concentration s, including patients and those with serious co-morbid conditions.<b r/>
Patie nts with extremes in muscle mass or diet.

The data above are obtained from the National Kidney Disease Education Program (NKDEP) which additionally recommends that when the eGFR is used in patients with extremes of body mass index for purposes of drug dosing, the eGFR should be multiplied by the estimated BMI. HEMATOLOGY MCV 95.1 80.0 - 09/18 MH 98.0 /2017 [facility] HEMATOLOGY RBC 3.63 4.20 - 09/18 MH 5.40 /2016 [facility] HEMATOLOGY Hgb 11.7 12.0 - 09/18 MH 16.0 /2016 [facility] HEMATOLOGY Hct 34.5 36.0 - 09/18 MH 48.0 /2016 [facility] HEMATOLOGY WBC 6.8 3.7 - 10.4 09/18 /2016 [facility] HEMATOLOGY MPV 8.2 7.4 - 10.4 09/18 /2016 [facility] HEMATOLOGY RDW 13.3 11.5 - 09/18 MH 14.5 /2017 [facility] HEMATOLOGY Platelet 241 133 - 450 09/18 MH /2016 [facility] HEMATOLOGY MCH 32.3 27.0 - 09/18 MH 31.0 /2017 [facility] HEMATOLOGY MCHC 34.0 32.0 - 09/18 MH 36.0 /2017 [facility] HEMATOLOGY POC 327 09/17 Activated /2016 [facility] Clotting Time CARDIAC CK MB 36.8 0.5 - 3.6 09/17 ENZYMES /2016 [facility] CARDIAC Total CK 341 12 - 191 09/17 ENZYMES /2017 [facility] CARDIAC CK MB Index 10.8 0.0 - 2.5 09/17 ENZYMES /2017 [facility] CARDIAC Troponin-I 15.90 0.00 - 09/17 Result ENZYMES 0.40 2017 Comment: [facility] Critical Result(s) called to WELLINGTON DUMONT at 09/17/2016 11:46 by HN. Read back OK. HEMATOLOGY PTT 67.1 22.9 - 09/17 MH 35.8 /2017 [facility] SPECIAL Hgb A1C 5.3 <=5.6 % 09/17 CHEMISTRY /2016 [facility] CARDIAC Total CK 311 12 - 191 09/17 ENZYMES /2017 [facility] CARDIAC Troponin-I 12.10 0.00 - 09/17 Result ENZYMES 0.40 /2017 Comment: [facility] Critical Result(s) called to Steff Adames at 09/17/2016 06:20 by RC. Read back OK. CARDIAC CK MB Index 12.7 0.0 - 2.5 09/17 ENZYMES /2016 [facility] CARDIAC CK MB 39.4 0.5 - 3.6 09/17 ENZYMES /2016 [facility] LIPIDS VLDL 10 09/17 /2016 [facility] LIPIDS Trig 52 <=149 09/17 mg/dL /2016 [facility] LIPIDS HDL 69 >=61 mg/dL 09/17 [facility] LIPIDS CHD Risk 2.54 3.90 - 09/17 MH 5.80 /2016 [facility] LIPIDS Chol 175 <=199 09/17 mg/dL /2016 [facility] LIPIDS LDL 96 <=99 mg/dL 09/17 MH (Calculated) /2016 [facility] HEMATOLOGY PT 13.5 12.0 - 09/17 MH 14.7 /2016 [facility] HEMATOLOGY INR 1.01 0.85 - 09/17 MH 1.17 /2016 [facility] HEMATOLOGY WBC 7.5 3.7 - 10.4 09/17 /2016 [facility] HEMATOLOGY RBC 3.85 4.20 - 09/17 MH 5.40 /2016 [facility] HEMATOLOGY Hgb 12.3 12.0 - 09/17 MH 16.0 /2016 [facility] HEMATOLOGY MCHC 33.6 32.0 - 09/17 MH 36.0 /2016 [facility] HEMATOLOGY RDW 13.0 11.5 - 09/17 MH 14.5 /2016 [facility] HEMATOLOGY Hct 36.6 36.0 - 09/17 MH 48.0 /2017 [facility] HEMATOLOGY MCV 95.3 80.0 - 09/17 MH 98.0 /2016 [facility] HEMATOLOGY MCH 32.0 27.0 - 09/17 MH 31.0 /2016 [facility] HEMATOLOGY Platelet 261 133 - 450 09/17 MH /2016 [facility] HEMATOLOGY MPV 8.0 7.4 - 10.4 09/17 /2016 [facility] HEMATOLOGY PTT 74.1 22.9 - 09/17 MH 35.8 /2016 [facility] HEMATOLOGY Eosinophils 2.2 0.0 - 4.0 09/17 /2016 [facility] HEMATOLOGY Basophils 0.8 0.0 - 1.0 09/17 /2016 [facility] HEMATOLOGY Lymphocytes 1.4 1.0 - 5.5 09/17 MH # /2017 [facility] HEMATOLOGY Monocytes # 0.8 0.0 - 0.8 09/17 MH /2016 [facility] HEMATOLOGY Eosinophils 0.2 0.0 - 0.5 09/17 MH # /2017 [facility] HEMATOLOGY Basophils # 0.1 0.0 - 0.2 09/17 [facility] HEMATOLOGY Segs-Bands # 5.1 1.5 - 8.1 09/17 [facility] HEMATOLOGY Segs 67.8 45.0 - 09/17 MH 75.0 /2017 [facility] HEMATOLOGY Lymphocytes 18.4 20.0 - 09/17 MH 40.0 /2017 [facility] HEMATOLOGY Monocytes 10.8 2.0 - 12.0 09/17 [facility] CARDIAC BNP 268 <=100 09/17 ENZYMES pg/mL /2016 [facility] CARDIAC Troponin-I 0.52 0.00 - 09/17 Result ENZYMES 0.40 Comment: [facility] Critical Result(s) called to [facility] at 09/16/2016 23:26 by RC. Read back OK. CARDIAC CK MB 4.8 0.5 - 3.6 09/17 ENZYMES /2016 [facility] CARDIAC Total CK 107 12 - 191 09/17 [facility]ZYMES [facility] [facility] CARDIAC CK MB Index 4.5 0.0 - 2.5 09/[address] [facility] CHEM PANEL eGFR 58 09/17 Result Comment: The [facility] eGFR is calculated using the CKD-EPI formula. In most young, healthy individuals the eGFR will be >90 mL/min/1.73m2 . The eGFR declines with age. An eGFR of 60-89 may be normal in some populations, particularly the elderly, for whom the CKD-EPI formula has not been extensively validated. Use of the eGFR is not recommended in the following populations:< br/>
Roula viduals with unstable creatinine concentration s, including patients and those with serious co-morbid conditions.<b r/>
Patie nts with extremes in muscle mass or diet.

The data above are obtained from the National Kidney Disease Education Program (NKDEP) which additionally recommends that when the eGFR is used in patients with extremes of body mass index for purposes of drug dosing, the eGFR should be multiplied by the estimated BMI. CHEM PANEL A/G Ratio 0.9 0.7 - 1.6 09/17 [facility] CHEM PANEL Globulin 3.9 2.7 - 4.2 09/17 [facility] CHEM PANEL B/C Ratio 15 6 - 25 09/17 [facility] CHEM PANEL AGAP 10.7 10.0 - 09/17 [facility] 20.0 [facility] CHEM PANEL BUN 14 7 - 22 09/17 [facility] CHEM PANEL Glucose Lvl 116 70 - 99 09/17 [facility] CHEM PANEL Sodium Lvl 140 135 - 145 09/17 [facility] CHEM PANEL Creatinine 0.95 0.50 - 09/17 MH Lvl 1.40 /2016 [facility] CHEM PANEL Calcium Lvl 9.1 8.5 - 10.5 09/17 [facility] CHEM PANEL CO2 30 24 - 32 09/17 [facility] CHEM PANEL Chloride Lvl 103 95 - 109 09/17 [facility] CHEM PANEL Potassium 3.7 3.5 - 5.1 09/17 [facility] Lvl /2016 [facility] CHEM PANEL Total 7.5 6.4 - 8.4 09/17 [facility] CHEM PANEL Bili Total 0.4 0.2 - 1.3 09/17 [facility] CHEM PANEL Alk Phos 66 39 - 136 09/17 [facility] CHEM PANEL AST 35 0 - 37 09/17 [facility] CHEM PANEL ALT 18 0 - 65 09/17 [facility] CHEM PANEL Albumin Lvl 3.6 3.5 - 5.0 09/17 [facility] HEMATOLOGY PTT 28.2 22.9 - 09/17 MH 35.8 /2016 [facility] HEMATOLOGY RBC 4.14 4.20 - 09/17 MH 5.40 /2016 [facility] HEMATOLOGY WBC 8.7 3.7 - 10.4 09/17 [facility] HEMATOLOGY MPV 8.0 7.4 - 10.4 09/17 [facility] HEMATOLOGY Platelet 283 133 - 450 09/17 [facility] HEMATOLOGY Hct 39.4 36.0 - 09/17 MH 48.0 /2016 [facility] HEMATOLOGY Hgb 13.4 12.0 - 09/17 [facility] 16.0 [facility] HEMATOLOGY RDW 13.3 11.5 - 09/17 MH 14.5 /2016 [facility] HEMATOLOGY MCHC 33.9 32.0 - 09/17 MH 36.0 /2016 [facility] HEMATOLOGY MCH 32.3 27.0 - 09/17 [facility] 31.0 [facility] HEMATOLOGY MCV 95.2 80.0 - 09/17 MH 98.0 /2016 [facility] HEMATOLOGY INR 0.92 0.85 - 09/17 MH 1.17 /2016 [facility] HEMATOLOGY PT 12.6 12.0 - 09/17 MH 14.7 /2017 [facility] HEMATOLOGY Eosinophils 0.1 0.0 - 0.5 09/17 MH # /2017 [facility] HEMATOLOGY Lymphocytes 0.9 1.0 - 5.5 09/17 MH # /2017 [facility] HEMATOLOGY Segs-Bands # 7.1 1.5 - 8.1 09/17 [facility] HEMATOLOGY Lymphocytes 10.5 20.0 - 09/17 MH 40.0 /2016 [facility] HEMATOLOGY Segs 81.0 45.0 - 09/17 MH 75.0 /2016 [facility] HEMATOLOGY Basophils 0.5 0.0 - 1.0 09/17 [facility] HEMATOLOGY Eosinophils 1.0 0.0 - 4.0 09/17 [facility] HEMATOLOGY Monocytes 7.0 2.0 - 12.0 09/17 [facility] Monocytes # 0.6 0.0 - 0.8 09/17 [facility] Pathology Reports No Data Provided for This Section Diagnostic Reports Report Value Date Source Neck wo contrast MRA Study: Neck wo contrast MRA 10/12/2018 [facility] Age: 77 years y/o Female Clinical Indication: - tia; right sided weaknes s and tingling. Comparison: None Technique: Magnetic resonanc e angiography of the neck was performed without gadolinium contrast with time of flight technique. 3-D maximum intensity projection images were obtained. FINDINGS: The origins of the great vessels are not visualized. Bilateral common carotid arteries are widely patent. Bilateral internal carotid a rteries and carotid bulb regions are patent without significant stenosis by NASCET criteria. Bilateral external carotid arteries are patent. Bilateral vertebral arteries are widely patent without stenosis. The visualized intracranial segments of the vertebral arteries are widely patent. The source images show no evidence of carotid or vertebral artery dissection. Any reported ICA stenoses di rectly reference the distal internal carotid diameter as the denominator for stenosis measurement. (NASCET criteria) IMPRESSION: 1. No flow-limiting internal carotid stenosis de tected. SL: [id number] Carotid artery Procedure: Carotid Ultrasound. 10/11/2018 [facility] Doppler bilat US Clinical Indication: Right-sided weakness and t ingling. Comparison: CT angiogram of the neck 09/22/2016. TECHNIQUE: Fry-scale, color Doppler an d spectral Doppler of the carotid arteries was performed. Any reported ICA stenoses indirectly reference the distal internal carotid diameter as the denominator for the sten osis measurement, utilizing consensus panel ángel jones. FINDINGS: RIGHT: Ther e is plaque involving the right common carotid artery, carotid bulb and right internal carotid artery. ICA PSV 140 cm/sec CCA PSV 75 cm/sec ICA/CCA ratio 1.9 Vertebral flow is antegrade. External carotid artery is patent. LEFT: The re is plaque involving the left common carotid artery, carotid bulb and left internal carotid artery. ICA PSV 107 cm/sec CCA PSV 94 cm/sec ICA/CCA ratio 1.1 Vertebral flow is antegrade. External carotid artery is patent. IMPRESSION: 1. RIGHT: ICA stenosis 50-69 % by velocity crite froylan. 2. LEFT: ICA stenosis <50 % by velocity criteri a. Consensus panel Doppler US criteria for diagnosi s of ICA stenosis: Stenosis (%) ICA PSV (cm/sec) ICA/CCA ratio <50 <125 <2.0 50-69 125-230 2.0-4.0 >70 but less than >230 >4.0 near occlusion Near occlusion High, low, or Variable undetectable [id number] Brain wo contrast EXAM: MRI BRAIN WITHOUT CONTRAST 10/11/2018 [facility] DATE: 10/11/2018 18:12 [employer] INDICATION: - right sided weakness and tingling ADDITIONAL INFORMATION AND CONTRAST: None. COMPARISON: CT head of 10/11/2018. TECHNIQUE: Multiplanar, mutisequence MRI of the brain without contrast. FINDINGS: Diffusion weighted images de monstrate acute or recent left thalamic, mesial temporal and occipital infarcts in the distribution of the posterior cerebral artery. No evidence of hemorrhagic conversion. Small old inferior right fro ntal infarct is present. Diffuse cerebral atrophy and mild chronic small vessel ischemic change. The ventricles are normal in size and symmetric. No extra-axial fluid collect ion identified. Fry-white d istinction is preserved. No mass lesion or midline shift detected. The intracranial arterial and venous str uctures demonstrate normal flow voids. The visible paranasal sinuses and skull base are unremarkable. IMPRESSION: 1. Acute or recent left thal amic, mesial temporal and occipital infarcts in the distribution of the posterior cerebral artery. No evidence of hemorrhagic conversion. 2. Small old inferior right frontal infarct is present. Diffuse cerebral atrophy and mild chronic small vessel ischemic change. SL: [id number] Brain wo contrast Patient Name: PROSPER GROSSMAN 10/11/2018 [facility] MRA : 1940; Age: 77 years y/o Female MR: [id number] Study: Brain wo contrast MRA 10/11/2018 18:12 [employer] Ordering Physician: Bethany Harvey MD Clinical Indication: - right sided weakness and tingling; Comparison: None Technique: Magnetic resonanc e angiography of the rosebud of Rodriguez was performed without contrast. 3D reconstructed images were created. FINDINGS: The petrous, jarett nous, ophthalmic and supraclinoid portions of the bilateral internal carotid arteries have normal caliber. The A1 and A2 segments of the bilateral anterior cerebral arteries are unremarkable. Bilateral middle cerebral arteries and its proximal branches have normal caliber. Bilateral vertebral arteries , basilar artery, and right posterior cerebral arteries are unremarkable. Slow flow/occlusion of the distal P1 P2 junction of the left FIRE TENDER compatible with known recent infarc t. Small right P-comm is present. Left P-comm is not visualized. There is no aneurysm or vascular malformation. IMPRESSION: 1. Slow flow/occlusion of th e distal P1 P2 junction of the left FIRE TENDER compatible with known recent infarct. 2. No definite cerebral aneurysm detected. SL: [id number] Brain wo contrast CT EXAM: CT BRAIN WITHOUT CONTRAST 10/11/2018 [facility] DATE: 10/11/2018 12:33 [employer] INDICATION: - right sided numbness. ADDITIONAL INFORMATION: . COMPARISON: None. TECHNIQUE: Routine axial CT images of the brain were obtained. IV contrast: None. CT imaging performed at this location utilizes radiation dose optimization techniques which include one or more of the following: -Automated exposure control -Adjustment of the mA and/or kV according to pat ient size -Use of iterative reconstruction technique CT Radiation Dose DLP 1222.38 mGy-cm FINDINGS: Non-contrast images of the h ead demonstrate no edema, hemorrhage, mass lesion or other acute intracranial abnormality. Old inferior right frontal i nfarct is present. Diffuse cerebral atrophy and moderate chronic small vessel ischemic change. Bhat-white matter distinction is preserved. The ventricles are normal. The basa l cisterns and sulci are nor mal in size. Enlarged 10.0 mm pituitary with superior convex margin likely reflecting macroadenoma. The paranasal sinuses, orbits and mastoids are u nremarkable. IMPRESSION: 1. No definite acute territorial infarct or intr acranial hemorrhage detected. 2. Old inferior right fronta l infarct is present. Diffuse cerebral atrophy and moderate chronic small vessel ischemic change. 3. Enlarged 10.0 mm pituitar y with superior convex margin likely reflecting macroadenoma. If there is further concern for intracranial pathology or acute stroke, MRI of the brain may be performed for complete assessment. SL: [id number] Chest 1view DX 1 VIEW CXR. PORTABLE EXAM 1:30 PM 10/11/2018 [facility] HISTORY: Patient's speech is slower than normal according to the family. Previous history of stroke and hypertension. COMPARISON: 06/24/2018 chest x-ray. Stable cardiomegaly. The yazmin gs are clear with normal pulmonary vasculature. No pleural abnormality. Upper mediastinal contours normal. Old healed left clavicular fracture. IMPRESSION: Stable cardiomegaly. No acute process of the elizabeth st.. END OF IMPRESSION SL: [id number] Chest 2 views DX Clinical Indication: - fall 06/24/2018 [facility] Comparison: 09/21/2016 FINDINGS: The PA and lateral chest rad iographs shows heparin/ lung volumes without airspace opacities, pleural effusions or pneumothorax. There are increased interstitial markings which have worsened when compared to previous exam The heart size and pulmonary vasculature are normal. The aorta is tortuous and atherosclerotic. The trachea is midline. There are no clinically significant osseous abnormalities noted. Collateral partially calcified breast implants are identified. IMPRESSION: 1. Findings suggestive of chronic obstructive pu lmonary disease. 2. No acute focal infiltrates SL: [id number] Shoulder series DX Exam: Left Shoulder series DX 06/24/2018 [facility] Clinical Indication: - pain, fall; Comparison: None FINDINGS: The 3 views of the left sujit ulder show normal alignment at the glenohumeral joint. There is comminuted mid left clavicular fracture with foreshortening and displacement of the fracture fragments. There is no fracture of the left h umeral head. The acromioclavicular joint and coracoclavicular spaces are intact. The acromion and coracoid processes appear unremarkable. The subacromial space is unremarkabl e. The visualized scapula is within normal limits.. There are no radiopaque foreign bodies or soft tissue swelling. If there is further concern, followup radiographs or MRI of the shoulder may be performed for complete assessment. IMPRESSION: 1. Acute, comminuted left mi dclavicular fracture with foreshortening. No shoulder joint fractures are identified. SL: [id number] Brain/Neck CTA Patient Name: PROSPER GROSSMAN 09/22/2016 [facility] : 1940; Age: 75 years y/o Female MR: [id number] Study: Brain/Neck CTA 09/21/2016 10:37 PM [employer] Ordering Physician: Jaspreet Jones DO Clinical Indication: Stroke; right-sided weakness with slurred speech and visual changes including left eye droop Comparison: Yesterday's magnetic resonance imagi ng TECHNIQUE: Sequential trans- axial images of the head and neck were obtained with a multi-detector helical CT after iodinated contrast administration. Maximum image projection multiplanar reformatting an d 3-D postprocessing reconstructions were perfor med at the workstation. CONTRAST: 100 cc of IV Omnipaque contrast materi al was used for the exam. CT Radiation Dose DLP 408.67 mGy-cm FINDINGS: CTA NECK: VASCULAR EVALUATION: The destiny gins of the great vessels and visualized upper thoracic aortic arch are diffusely tortuous due to atherosclerosis. The common carotid arteries are widely patent bilaterally with mild calcific atherosclerotic plaque disease. The carotid bulb regions are normal. The internal and external carotid artery origins are wid des patent. The cervical int ernal carotid arteries are widely patent but quite tortuous with vascular kinking particularly on the right. The cervical left internal carotid artery contains changes sugges ting chronic fibromuscular d ysplasia without any visible endothelial thickening or plaque. The right internal carotid a rtery caliber diameter is 5 mm and the left internal carotid artery caliber diameter is 5 mm in the distal internal carotid artery. There is no significant stenosis by NASCET criteria. Bilateral cervical segments of the vertebral art eries are widely patent. The source images show no evidence of dissection s. Any reported ICA stenosis di rectly references the distal internal carotid diameter as the denominator for stenosis measurement in keeping with NASCET criteria. NON-VASCULAR STRUCTURES: Roscoe ssly unremarkable. Chronic scar and the pulmonary apices otherwise clear. Patient is osteopenic with severe degenerative changes in the cervical spine at C3-C4, C4-C5, C5-C6, C6-C7, and C7-T1 extending into the thoracic spine. Multilevel canal and foraminal stenosis present at the lower levels. IMPRESSION: Unremarkable CT angiography neck. No significant stenosis by NASCET criteria. 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 FINDINGS: CTA HEAD ANTERIOR CIRCULATION: The laguerre praclinoid, petrous, cavernous and ophthalmic segments of the internal carotid arteries are unremarkable. The A1 and A2 segments of the anterior cerebral arteries, middle cer ebral arteries and branches are unremarkable. The anterior communicating artery is unremarkable. The posterior communicating arteries are also unremarkable. POSTERIOR CIRCULATION: Bilat eral vertebral arteries, basilar artery, superior cerebellar and posterior cerebral arteries are unremarkable. The posterior inferior cerebellar arteries are unremarkable. There are no aneurysms or ar teriovenous malformations seen. There is no significant atherosclerotic disease. BRAIN IMAGES: The images of the head show no mass-effect or midline shift. There are no intra or extra-axial fluid collections, intraventricular or intraparenchymal hemorrhages. The ventricles and cisterns are normal. IMPRESSION: Unremarkable normal CT angio graphy of rosebud of Rodriguez and intracranial vessels. SL: [id number]-M Brain w/wo contrast Patient Name: PROSPER GROSSMAN 09/21/2016 [facility] : 1940; Age: 75 years y/o Female MR: [id number] Study: Brain w/wo contrast MRI 09/21/2016 5:36 PM [employer]ER Ordering Physician: Zay Hodge MD Clinical Indication: Acute cognitive change; fac ial droop Comparison: CT obtained earlier today TECHNIQUE: Multiplanar pre- and post-gadolinium contrast-enhanced MRI of the brain is performed on a 1.5 Adri magnet. Contrast: 15 cc of gadolinium was administered. FINDINGS: BRAIN PARENCHYMA: The brain parenchyma has normal signal with normal fry-white junction, sulci, and gyri. There is no mass effect or midline shift. There is no extra-axial fluid collection or intrapare nchymal hemorrhage. The chio us callosum appears normal. The white matter, basal ganglia, and posterior fossa, including the brainstem, demonstrate mild to moderate chronic small vessel ischemic changes in the deep structures parti cularly in the white matter but there is an acute to subacute nonenhancing nonhemorrhagic lacunar ischemic insult in the medial left thalamus just reaching the left cerebral peduncle with a focal puncta te small vessel insult posteriorly in the left occipital lobe on the diffusion weighted imaging and confirmed at the ADC map. There is no magnetic susceptibility to suggest recent or remote intracranial hemorrhage. There is no abnormal contrast enhancement. CEREBELLOPONTINE REGIONS AND SKULL BASE: The cerebellopontine angles appear unremarkable. The skull base, craniocervical junction, and brainstem are normal. The optic chiasm is normal. The sellar and p ineal regions are largely un remarkable. However, a subcentimeter microadenoma may well be present in the left anterior pituitary lobe explaining the apparent mild enlargement of the anterior pituitary. At this age, this is equally an incidental findi ng. VENTRICLES: CSF spaces are e susannah age appropriately atrophic. The lateral ventricles, third and fourth ventricles appear unremarkable. The basilar cisterns are normal. VISUALIZED VESSELS: The veno us sinuses are grossly unremarkable. The expected intracranial flow voids present. ORBITS, MASTOIDS AND PARANAS AL SINUSES: The visualized orbits are unremarkable. The paranasal sinuses are unremarkable with minor chronic mucosal thickening on the right. The mastoid air cells are clear. IMPRESSION: Acute to subacu te nonhemorrhagic lacunar ischemic insults left medial thalamus just extending into the left cerebral peduncle with other left occipital tiny focus in this patient with chron ic small vessel ischemic dis ease and atrophy. There may be a pituitary microadenoma but likely incidental. SL: WR3-M Chest 1view DX Exam: Chest 1view DX 09/21/2016 [facility] clements Clinical Indication: Dizziness Comparison: Chest radiograph September 2016 FINDINGS: Single frontal radiograph of the chest is perfor med. Lungs are clear without infi ltrate or mass. No pleural effusion or pneumothorax. Heart size is mildly enlarge d, not significantly changed. Pulmonary vascularity is within normal limits. Atherosclerotic calcifications noted in the aorta. No acute osseous abnormality identified. Bilateral breast implants are in place with capsular calcification. IMPRESSION: No acute cardiopulmonary abnormality. SL: [id number] Brain wo contrast CT Patient Name: PROSPER GROSSMAN 09/21/2016 [facility] : 1940; Age: 75 years y/o Female MR: [id number] Study: Brain wo contrast CT 09/21/2016 3:38 PM CS T Ordering Physician: Radha Urbina Clinical Indication: Weakness; right-sided Comparison: None TECHNIQUE: CT images were ob tained from the foramen magnum to the vertex without the use of intravenous contrast on a multidetector CT. Coronal and sagittal reconstructions were obtained. CT radiation dose DLP: 1138 mGy FINDINGS: BRAIN PARENCHYMA: There are normal fry-white corticomedullary interfaces, sulci and gyri. There are no focal mass lesions or fluid collections on this noncontrast head CT. There is no mass effect, midl ine shift or edema. There ar e no intra-axial or extra-axial fluid collections, intraventricular or intraparenchymal hemorrhage. The pineal, sellar, brainstem, cerebellum and skull base regions appear un remarkable. Note is made of a very generous but still within normal limits sized pituitary gland for a 75-year-old female. Are there prior studies available for comparison? The white matter, basal gang richelle, and posterior cranial fossa including the brainstem demonstrate chronic small vessel changes in the white matter in a somewhat unusual distribution in the subinsular reg ions. Other small vessel laura nges are present particularly in the left thalamus. VENTRICLES: CSF spaces are g enerally atrophic but mild and consistent with the patient's age. The lateral ventricles, third and fourth ventricles appear unremarkable. The basilar cisterns are normal. ORBITS, MASTOIDS AND PARANAS AL SINUSES: The visualized orbits are unremarkable. The paranasal sinuses are unremarkable. The mastoid air cells are clear. SKULL: There are no osseous abnormalities. IMPRESSION: Chronic small vessel changes throughout the white matter as well as the deep nuclei without definite acute or subacute abnormality seen but difficult to exclude. Pituitary gland measures about a centime ter in size and usual for 75 -year-old female. Comparison to prior exams would be helpful to be sure no abnormal growth within the sella turcica to indicate a macroadenoma. If there are no prior exams, m agnetic resonance imaging of the brain without contrast would allow for a more complete overall evaluation and can be performed on a nonemergent basis. Otherwise, Unremarkable noncontrast head CT with n o trauma, mass, hemorrhage or subacute stroke. SL: WR3-M Chest 1view DX Clinical Indication: Chest pain. 09/16/2016 [facility] Comparison: None FINDINGS: AP view of the chest submitted for interpretatio n. Evaluation of the lung paren chyma is slightly limited secondary to the bilateral peripherally calcified breast implants which obscures assessment of the lung bases. Grossly, lungs appear clear. Heart mildly to moderately e nlarged.. Central pulmonary vasculature appears normal. No effusion. No pneumothorax. No radiographically apparent acute osseous abnor mality. IMPRESSION: 1. No radiographically apparent acute cardiopulm onary process. 2. Mild to moderate cardiomegaly. SL: YAN Consultation Notes No Data Provided for This Section Discharge Summaries No Data Provided for This Section History and Physicals No Data Provided for This Section Vital Signs Vital Sign Value Date Comments Source Temperature Oral (F) 98.2 F 10/13/2018 [facility] heast Heart Rate 76 10/13/2018 [facility] Respitory Rate 16 10/13/2018 [facility] Systolic (mm Hg) 144 10/13/2018 [facility] Diastolic (mm Hg) 76 10/13/2018 [facility] st Temperature Oral (F) 98.1 F 10/13/2018 [facility] Heart Rate 70 10/13/2018 [facility] Respitory Rate 16 10/13/2018 [facility] Systolic (mm Hg) 128 10/13/2018 [facility] Diastolic (mm Hg) 73 10/13/2018 [facility] st Temperature Oral (F) 97.8 F 10/13/2018 [facility] Heart Rate 91 10/13/2018 [facility] Respitory Rate 16 10/13/2018 [facility] Systolic (mm Hg) 120 10/13/2018 [facility] Diastolic (mm Hg) 63 10/13/2018 [facility] st Height 160.02 cm 10/11/2018 [facility] BMI Calculated 23.08 10/11/2018 [facility] Weight 59.091 10/11/2018 [facility] Respitory Rate 18 06/24/2018 [facility] Systolic (mm Hg) 165 06/24/2018 [facility] Diastolic (mm Hg) 94 06/24/[address] [facility] [address] Respitory Rate 18 06/24/2018 [facility] Systolic (mm Hg) 161 06/24/2018 [facility] Diastolic (mm Hg) 93 06/24/2018 [facility] st Respitory Rate 18 06/24/2018 [facility] Systolic (mm Hg) 189 06/24/2018 [facility] Diastolic (mm Hg) 115 06/24/2018 [facility] st BMI Calculated 23.96 06/24/2018 [facility] Height 160.02 cm 06/24/2018 [facility] Weight 61.364 06/24/2018 [facility] Heart Rate 54 06/24/2018 [facility] Temperature Oral (F) 97.5 F 06/24/2018 [facility] Weight 126 [facility]/15/[facility] Temperature Oral (F) 97.8 F 11/15/2016 [facility] Heart Rate 83 11/15/2016 [facility] Diastolic (mm Hg) 80 11/15/2016 [facility] Systolic (mm Hg) 114 11/15/2016 [facility] Weight 126 10/25/2016 [facility] Temperature Oral (F) 98.5 F 10/25/2016 [facility] Heart Rate 94 10/25/2016 [facility] Diastolic (mm Hg) 70 10/25/2016 [facility] Systolic (mm Hg) 130 10/25/2016 [facility] n[facility] Weight 131 10/04/2016 [facility] Temperature Oral (F) 97.5 F 10/04/2016 [facility] Heart Rate 61 10/04/2016 [facility] Diastolic (mm Hg) 80 10/04/2016 [facility] Systolic (mm Hg) 150 10/04/2016 [facility] n[facility] Weight 131 09/27/2016 [facility] Temperature Oral (F) 98.1 F 09/27/2016 [facility] Heart Rate 57 09/27/2016 [facility] Diastolic (mm Hg) 60 09/27/2016 [facility] Systolic (mm Hg) 92 09/27/2016 [facility] Temperature Oral (F) 98.1 F 09/23/2016 [facility] 60 09/23/2016 [facility] Rate 18 09/23/2016 [facility] Systolic (mm Hg) 146 09/23/2016 [facility] Diastolic (mm Hg) 67 09/23/2016 [facility] st Respitory Rate 18 09/23/2016 [facility] Systolic (mm Hg) 163 09/23/2016 [facility] Heart Rate 56 09/23/2016 [facility] Temperature Oral (F) 98.2 F 09/23/2016 [facility] Systolic (mm Hg) 149 09/23/2016 [facility] Diastolic (mm Hg) 83 09/23/[address] Respitory Rate 18 09/23/2016 [facility] Temperature Oral (F) 98.2 F 09/23/2016 [facility] Heart Rate 61 09/23/2016 [facility] Diastolic (mm Hg) 70 09/23/[address] BMI Calculated 24.76 09/22/2016 [facility] Weight 63.409 09/22/2016 [facility] Height 160.02 cm 09/22/2016 [facility] Height 160.02 cm 09/21/2016 [facility] BMI Calculated 23.08 09/21/2016 [facility] Weight 59.091 09/21/2016 [facility] Systolic (mm Hg) 130 09/18/2016 [facility] Diastolic (mm Hg) 68 09/18/[address] Temperature Oral (F) 98.1 F 09/18/2016 [facility] Heart Rate 65 09/18/2016 [facility] Respitory Rate 18 09/18/2016 [facility] Temperature Oral (F) 98.3 F 09/18/2016 [facility] Heart Rate 62 09/18/2016 [facility] Systolic (mm Hg) 151 09/18/2016 [facility] Diastolic (mm Hg) 69 09/18/[address] Respitory Rate 18 09/18/2016 [facility] Heart Rate 55 09/18/2016 [facility] Temperature Oral (F) 98.1 F 09/18/2016 [facility] Respitory Rate 18 09/18/2016 [facility] Systolic (mm Hg) 110 09/18/2016 [facility] Diastolic (mm Hg) 59 09/18/[address] Height 160.02 cm 09/17/2016 [facility] Weight 59.318 09/17/2016 [facility] Height 160.02 cm 09/17/2016 [facility] BMI Calculated 23.17 09/17/2016 [facility] Height 160.02 cm 09/17/2016 [facility] BMI Calculated 23.68 09/17/2016 [facility] Weight 60.636 09/17/2016 [facility] Weight 61.364 09/17/2016 [facility] BMI Calculated 23.96 09/17/2016 [facility] Encounters Location Location Encounter Encounter Reason Attending ADM DC Stat us Source Details Type Number For Provider Date Date Visit [facility] [id number] [place] 09/17 09/18 Aldair Jones II /2016 [facility] Inpatient [id number] [place] 09/21 09/23 Aldair Jones II /2016 [facility] Family Consult [id number] 09/27 09/27 Fam jase Diagnostic [id number] /[facility] [id number] [facility] Family Consult [id number] 09/27 09/27 Fam jase Diagnostic [id number] /[facility] [id number] [facility] Family Consult [id number] 09/27 09/27 Fam j[facility] Diagnostic [id number] /[facility] [id number] c Family 1 WEEK [id number] 10/04 10/04 Fami ly Diagnostic FOLLOW UP [id number] /[facility] [id number] c Family 1 WEEK [id number] 10/04 10/04 Fami ly Diagnostic FOLLOW UP [id number] /2016 [facility] [id number] c Family 3 WEEKS [id number] 10/25 10/25 Fam jase Diagnostic [id number] /[facility] [id number] c [facility] Emergency [id number] [place] 06/24 06/24 LIZA Liu /2017 [facility] [id number] [place] 10/11 10/14 LIZA Harvey /2018 [facility] Procedures Procedure Code Date Perfomer Comments Source Bilateral breast [id number] [facility] implants Hysterectomy [id number] [facility] Stripping of vein [id number] [facility] Assessment and Plan Assessment and Plan Date Source Extracted from:Title: Progress Note * 10/14/2018 [facility] Author: Curtis Steward MD Date: 10/13/18 Impression and Plan IMPRESSION: 1. 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 Could be cardioembolic in origin. 2. New onset atrial fibrillation. 3. Carotid artery stenosis on the right , 50% to 69%, asymptomatic. not seen on mra neck. 4. History of cerebrovascular accident with right hand pare sthesia. 5. Pituitary adenoma, likely incidental finding. RECOMMENDATIONS: 1. Agree with cardiology. Patient woul d benefit from changing from Plavix to Eliquis. 2. Continue with aspirin and statin. 3. ok to d/c from neuro standpoint Extracted from:Title: General Admission H&P * Author: Bethany Harvey MD Date: 10/11/18 Impression and Plan Diagnosis TIA (transient ischemic attack) (SXI69-PY G45.9, Working, La dical). Paresthesia of skin (NVZ92-MW R20.2, Working, Medical). Unspecified atrial fibrillation (OPT33-NN I48.91, Working, M edical). Course: Improving. Education and Follow-up: Counseled: Patient, Family. #1. TIA versus CVApatient has persiste nt right-sided paresthesias with numbness and tingling. Neuro workup ordered. Continue Plavix and aspirin. Neuro consultation #2. new onset atrial fibrillation-cardia c workup in progress. Consultation with cardiology. Metoprolol. #3. hypertension -control and monitor VT E prophylaxis CODE STATUS discussed-patient is a full code PT OT and speech evaluations ordered. P atient is a good candidate for long term if needed Extracted from:Title: Hosp Progress Note * 09/23/2016 [facility] Author: Lida Coronel MD Date: 09/23/16 Impression and Plan ASSESSMENT Acute Left Medial Thalamus CVA Diplopia, Slurred Speech, and Facial Droop Anemia Elevated Troponin recent FL Recent NSTEMI with Nonocclusive CAD HTN HLD PLAN: CTA Head pending results PT/OT/ST Neuro Consult Permissive HTN 150-180; will restart BP meds tomorrow ASA/Plavix/Statin DVT PPx: SCDs [facility]; [facility] Speech therapy Extracted from:Title: Vital heart and Vein Progress Note * 0 09/18/2016 [facility] Author: Kin Murray MD Date: 09/18/16 Patient: PROSPER GROSSMAN RN: [id number] Age: 75 years Sex: Female : 1940 Associated Diagnoses: None Author: Kin Murray MD Subjective Patient denies chest pain, right groin pain, SOB and N/V. Review of Systems Constitutional: No fever. Respiratory: No shortness of breath. Cardiovascular: No chest pain, No palpitations. Gastrointestinal: No nausea, No vomiting. Health Status Allergies: Allergic Reactions (All) Severity Not Documented Sulfa drugs- No reactions were documented. Objective Meds Scheduled Meds (9):amLODIPine, aspirin ( aspirin 325 mg tablet, enteric coated), atorvastatin (Lipitor), clopidogrel, enoxaparin (Lovenox), lisinopril, metoprolol (metoprolol tartrate), pantoprazole (Protonix), sodium chloride (Saline Flush 0.9%) Unscheduled Meds: None PRN Meds (12):GI cocktail, acetaminophen -codeine (acetaminophen-codeine #3), acetaminophen-hydrocodone ([place] 7.5/325 oral tablet), acetaminophen, acetaminophen, docusate (Colace 100 mg oral capsule), h ydrALAZINE, metoprolol (Lopressor), morp dulce maria Sulfate, nitroglycerin (nitroglycerin SL Tab), ondansetron (Zofran), sodium chloride (Saline Flush 0.9%) One Time Meds (3):(not done) aspirin, (C ompleted) heparin (Heparin - one time bolus for ACS), (Completed) labetalol Continuous Infusions: None Scheduled Meds (9): 09/17/16 15:54 amLODIPine 5 mg PO Daily 09/17/16 9:00 aspirin (aspirin 325 mg tablet, enteric coated ) 325 mg PO Daily 09/17/16 3:37 atorvastatin (Lipitor) 80 mg PO Bedtime 09/18/16 9:00 clopidogrel 75 mg PO Daily 09/17/16 22:00 enoxaparin (Lovenox) 40 mg [id number] [id number] 09/17/16 9:00 lisinopril 20 mg PO Q12H 09/17/16 9:00 metoprolol (metoprolol tartrate) 25 mg PO Q12H 09/17/16 1:01 pantoprazole (Protonix) 40 mg PO Before Breakf ast 09/17/16 9:00 sodium chloride (Saline Flush 0.9%) 10 ml IVP Q12H I&O Input/Output Record In Out Bal 09/18 24hr Tot 10 0 09/17 24hr Tot 1476 1800 -324 VS/Measurements Measurements from flowsheet : Measurements 09/17/2016 03:47 Heparin Dosing Weight (kg) 59.32 09/17/2016 03:47 Height 160.02 cm Height Collection Method Stated Weight Collection Method Measured Current Weight 59.29 kg 09/17/2016 02:39 Heparin Dosing Weight (kg) 59.32 09/17/2016 02:35 Height 160.02 cm Height Collection Method Stated Weight 59.318 kg Dosing Weight Difference Percent -2.174 % Dosing Weight Collection Method Measured Body Surface Area 1.6238 m2 Body Mass Index 23.17 m2 , Vital Signs (last 24 hrs) Last Charted _ Temp Oral 98.3 DegF (SEP 18:) Heart Rate Peripheral 62 bpm (SEP 18:) Resp Rate 18 BRMIN (SEP 18:) SBP H 151mmHg (SEP 18:) DBP 69 mmHg (SEP 18:) SpO2 95 % (SEP 18:) General: Alert and oriented, No acute distress, sitting in bed. HENT: Normocephalic. Neck: Supple, No jugular venous distention. Respiratory: Lungs are clear to auscult ation, Respirations are non-labored, Breath sounds are equal, Symmetrical chest wall expansion. Cardiovascular: Normal rate, Regular rh ythm, S1, S2, Good pulses equal in all extremities, No edema, right groin soft with C/D/I dressing at the site; no ecchymosis, bruit or hematoma noted. Gastrointestinal: Soft, Non-tender, Non-distended, Normal b owel sounds. Integumentary: Warm, Dry, [place]. Neurologic: Alert, Oriented, No focal deficits. Psychiatric: Cooperative, Appropriate mood and affect. Review / Management Results review: Labs (Last four charted values) WBC 6.8 (SEP 18) 7.5 (SEP 17) 8.7 (SEP 16) Hgb L 11.7 (SEP 09 0) 12.3 (SEP 17) 13.4 (SEP 16) Hct L 34.5 (SEP 09 0) 36.6 (SEP 17) 39.4 (SEP 16) Plt 241 (SEP 18) 261 (SEP 17) 283 (SEP 16) Na 139 (SEP 18) 140 (SEP 16) K 3.6 (SEP 18) 3.7 (SEP 16) CO2 28 (SEP 18) 30 (SEP 16) Cl 107 (SEP 18) 103 (SEP 16) Cr 0.71 (SEP 18) 0.95 (SEP 16) BUN 13 (SEP 18) 14 (SEP 16) Glucose Random 86 (SEP 18) H 116 (SEP 16) Mg 2.0 (SEP 18) Ca 8.6 (SEP 18) 9.1 (SEP 16) PT 13.5 (SEP 17) 12.6 (SEP 16) INR 1.01 (SEP 17) 0.92 (SEP 16) PTT H 67.1 (Sep) H 74.1 (SEP 17) 28.2 (SEP 16) Troponin C 15.90 (SEP 17) C 12.10 (SEP 17) C 0.52 (SEP 16) CK MB H 36.8 (Sep 9) H 39.4 (SEP 17) H 4.8 (SEP 16) Total CK H 341 (SEP 17 ) H 311 (SEP 17) 107 (SEP 16) . Lines and Tubes: Peripheral catheter: Site: left arm. Principal Systems Engineer: At 09/18/2016 08:00, Reveals a Normal sinus rhythm, Reveals a Sinus bradycardia. Condition: Stable. 09/17/16 [facility] Conclusions 1) The left ventricular chamber size is normal. 2) Global left ventricular wall motion and contractility are within normal limits. 3) Abnormal left ventricular diastolic filling is observed, consistent with impaired LV relaxation. 4) The left atrium is dilated. 5) The right ventricular global systolic function is normal. 6) The right ventricular systolic pressure was calculated at 37 mmHg. 09/17/16 [facility] 1. Non-ST elevation myocardial infarction. 2. Left heart catheterization, selectiv e coronary angiography and left ventriculography. 3. FFR measurement of the proximal LAD borderline lesion. Impression and Plan 1. NSTEMI - given her significant eleva brii troponin and elevated CK-MB to 39.4, and troponin at 12.10. Cath was done 09/17/16 which showed a 50% proximal LAD lesion and SAI-III flow at the distal LAD. LV gram showed mild apical hypokinesis. Would treat with medical therapy with good BP control and 3 months of aspirin / plavix; pt has ambulated in the hallway without chest or groin pain; discussed wit h the patient care of the right groin in cluding monitoring for s/s of infection such as fever, chills, drainage or redness at the site; they have been advised not to apply lotions, creams, powders or ba ndaids to the site, not to submerge in w ater for 5 days and keep the area clean and dry; she is advised not to do any heavy lifting over 10 pounds for the next 7 days and if bleeding occurs she is advis ed to hold pressure above the skin site for 10 minutes, if continues, continue holding pressure and seek emergency medical care, she is advised to hold pressure above the skin site before coughing, snee zing or valsalva for the next 5 days; f/ u with either Dr. Murray in 2 weeks, or a directory carrier of her choice; the benefits for Cardiac Rehab Phase II has been explained to the patient and a list has been presented to the patient for her selection 2. HTN - BP has improved, increase aml odipine to 5mg BID, lisinopril 20 mg p.o. q. 12 hours and metoprolol 25 mg p.o. q., 12 hours 3. HLD - continue lipitor at d/c 4. DVT prophylaxis with SQ lovenox The patient was seen and examined by me with the resident/CONTINUOUS MINING MACHINE LODE MINER/PA and I agree with the History/Exam documented. Addendum by Kin Murray MD on 09/18/2016 10:42 Ok to discharge home today from cardaic standpoint, f/u with me in clinic in 3-4 weeks. Also need PCP f/u in 2-3 weeks. Plan of Care No Data Provided for This Section Social History Social History Date Source Social History ElementQualifiersDate Reported 10/25/2016 [facility] Tobacco Use: . Are you a: never smoker Oct 25, 2016 Alcohol: . Alcohol: No Oct 25, 2016 Social History TypeResponse 09/17/2016 [facility] Alcohol Never Substance Abuse Use: None. Smoking Status Never smoker; Ready to change: No; Megan rns about tobacco use in household: No; Exposure to Tobacco Smoke None; Cigarette Smoking Last 365 Days No; Reg Smoking Cessation Counseling Yes entered on: 10/11/18 Family History No Data Provided for This Section Advance Directives No Data Provided for This Section Functional Status No Data Provided for This Section
[2020-08-19 16:45] LABS: Absolute Lymphocytes (CBC) 0.8 K/uL (0.7-4.9); Basophils % 0.4 % (0-1.3); Hematocrit 37.8 % (36.0-45.0); Lymphocytes % 7.9 % (15.3-44.8); MPV 8.7 fL (7.6-11.3); RBC Red Blood Cell Count 4.01 M/uL (3.86-4.86)
[2020-08-19] MEDS ORDERED: METHYLPREDNISOLONE 125 MG INJ ONE (16:46)
[2020-08-19] MEDS ORDERED: NA CHLORIDE 0.9% 250 ML ONE (16:47)
[2020-08-19 16:50] LABS: Protime INR 1.7
[2020-08-19 17:23] LABS: ALT/SGPT 21 U/L (12-78); AST/SGOT 62 U/L (15-37); Albumin 2.6 g/dL (3.4-5.0); Alkaline Phosphatase 57 U/L (45-117); BUN Blood Urea Nitrogen 16 mg/dL (7-18); Bicarbonate 27 mmol/L (21-32); Bilirubin Direct 0.3 mg/dL (0-0.2); Creatine Phosphokinase 75 U/L (26-192); Glucose Level 117 mg/dL (74-106); Potassium 3.3 mmol/L (3.5-5.1); Protein, Total 6.9 g/dL (6.4-8.2); Sodium Level 132 mmol/L (136-145); Troponin (Emerg Dept Use Only) < 0.02 ng/mL (0.0-0.045)
[2020-08-19] MEDS ORDERED: CEFTRIAXONE/SWI 1gm 1 GM/10 ML SYR ONE (18:39)
--- NOTE | 2020-08-19 18:51 | RAD REPORT ---
EXAM DESCRIPTION: CT - Chest For Pe Angio - 08/19/2020 6:15 pm CLINICAL HISTORY: SOB , COVID positive August 10, increasing shortness of breath COMPARISON: Chest Single View dated 08/19/2020 TECHNIQUE: Dynamically enhanced 3 mm thick images of the chest were obtained during administration o f approximately 150mL Isovue 370 IV contrast. Coronal and oblique MIP reconstruction images were gene rated and reviewed. Exam utilizes a protocol to evaluate the pulmonary arterial tree. All CT scans are performed using dose optimization technique as appropriate and may include automated exposure control or mA/KV adjustment according to patient size. FINDINGS: No pulmonary emboli are identified. The aorta as imaged shows no acute or suspicious finding. Cardiomegaly is present primarily biatrial enlargement. No pericardial thickening or effusion. Patient has extensive ground-glass opacification throughout the lung [place]. No cavitation or focal m ass lesion. No pleural effusion or pleural thickening. No mediastinal or hilar suspicious masses. No chest wall masses or abnormal axillary lymphadenopathy. Bilateral breast implants are in place both showing dense calcified fibrous capsules. Both implants show ruptured capsules. IMPRESSION: No pulmonary emboli identified. Moderately severe COVID-19 pneumonia pattern.
[2020-08-19] MEDS ORDERED: AZITHROMYCIN 500 MG/250 ML BAG IV SCH (19:00)
--- NOTE | 2020-08-19 19:05 | RAD REPORT ---
EXAM DESCRIPTION: RAD - Chest Single View - 08/19/2020 5:17 pm CLINICAL HISTORY: SOB, COVID positive COMPARISON: No remote imaging TECHNIQUE: AP portable chest image was obtained 08/19/2020 5:17 pm . FINDINGS: Interstitial fibrotic pattern is present probably baseline. Patient has numerous additiona l scattered airspace opacities throughout both lung msocoso. Cardiomegaly is present. Trachea is midli ne. No measurable pleural effusion and no pneumothorax. No acute bony abnormality seen. No acute aort ic findings suspected. Bilateral breast implants are in place with densely calcified capsules. IMPRESSION: Extensive bilateral airspace opacification. In a patient with a positive COVID study, this is consistent with a moderately severe COVID-19 pneumo duncan.
--- NOTE | 2020-08-19 19:20 | ER ---
Nurse's Notes [facility] Name: Yahaira Hill Age: 79 yrs Sex: Female : 1940 Arrival Date: 08/19/2020 Time: 15:28 Bed 4 Private MD: Diagnosis: Pneumonia due to other specified infectious organisms;Coronavirus infection, unspecified;Respiratory failure, unspecified with hypoxia;Unspecified atrial fibrillation Presentation: 08/19 15:45 Chief complaint: Parent and/or Guardian states: dx with covid 08/10/20, has had em increased shortness of breath, weakness and has not had fever for 2 days, also reports N/V/D SPO2 sat 76% in triage. Coronavirus screen: Client reports previous positive COVID test result. Date of collection: August 10, 2020. Ebola Screen: Patient negative for fever greater than or equal to 101.5 degrees Fahrenheit, and additional compatible Ebola Virus Disease symptoms Patient denies exposure to infectious person. Patient denies travel to an Ebola-affected area in the 21 days before illness onset. No symptoms or risks identified at this time. Initial Sepsis Screen: Does the patient meet any 2 criteria? RR > 20 per min. HR > 90 bpm. Yes Does the patient have a suspected source of infection? Yes: Productive cough/pneumonia. Risk Assessment: Do you want to hurt yourself or someone else? Patient reports no desire to harm self or others. Onset of symptoms was August 10, 2020. 15:45 Method Of Arrival: Wheelchair em 15:45 Acuity: JIMMY 2 em Historical: - Allergies: 15:49 Sulfa (Sulfonamide Antibiotics); em - PMHx: 15:49 Hypertension; CVA; em - PSHx: 15:49 None; em - Immunization history:: Adult Immunizations up to date. - Social history:: Smoking status: Patient denies any tobacco usage or history of. Screenin:10 Abuse screen: Denies threats or abuse. Denies injuries from another. Nutritional sv screening: No deficits noted. Tuberculosis screening: No symptoms or risk factors identified. Fall Risk None identified. Assessment: 16:10 General: Appears in no apparent distress. comfortable, slender, Behavior is calm, sv cooperative, appropriate for age. General: Reports not eating or drinking fluids as much as normal. Pain: Denies pain. Neuro: Level of Consciousness is awake, alert, obeys commands, Oriented to person, place, time, situation, Moves all extremities. Full function Reports weakness. Cardiovascular: Patient's skin is warm and dry. Rhythm is atrial fibrillation. Respiratory: Reports shortness of breath Airway is patent Respiratory effort is even, unlabored, Respiratory pattern is symmetrical, tachypnea. Derm: Skin is normal. 16:51 Reassessment: Patient appears in no apparent distress at this time. Patient and/or sv family updated on plan of care and expected duration. Pain level reassessed. Patient is alert, oriented x 3, equal unlabored respirations, skin warm/dry/pink. Pt reports being able to breathe better since O2 was applied. 18:00 Reassessment: Patient appears in no apparent distress at this time. Patient and/or sv family updated on plan of care and expected duration. Pain level reassessed. Patient is alert, oriented x 3, equal unlabored respirations, skin warm/dry/pink. 18:52 Reassessment: Franco Beverly NP at bedside. sv 19:09 Reassessment: Franco Beverly NP, approved pt to have food and drink. jb4 19:10 Reassessment: Patient appears in no apparent distress at this time. Patient and/or jb4 family updated on plan of care and expected duration. Pain level reassessed. Patient is alert, oriented x 3, equal unlabored respirations, skin warm/dry/pink. Respiratory: Airway is patent Respiratory effort is even, unlabored, Respiratory pattern is symmetrical, tachypnea Breath sounds are clear bilaterally. 20:30 Reassessment: Patient appears in no apparent distress at this time. Patient and/or jb4 family updated on plan of care and expected duration. Pain level reassessed. Patient is alert, oriented x 3, equal unlabored respirations, skin warm/dry/pink. 21:45 Reassessment: Patient appears in no apparent distress at this time. Patient and/or jb4 family updated on plan of care and expected duration. Pain level reassessed. Patient is alert, oriented x 3, equal unlabored respirations, skin warm/dry/pink. Vital Signs: 15:45 BP 92 / 56; Pulse 103; Resp 26; Temp 98.4; Pulse Ox 76% on R/A; Weight 58.97 kg; Height em 5 ft. 3 in. (160.02 cm); Pain 0/10; 16:10 Pulse Ox 76% on R/A; sv 16:25 Pulse Ox 87% on 3 lpm NC; sv 16:30 BP 80 / 64; Pulse 93; Resp 30; Pulse Ox 91% on 4 lpm NC; sv 17:15 BP 112 / 63; Pulse 99; Resp 30; Pulse Ox 89% on 4 lpm NC; sv 19:00 BP 111 / 70; Pulse 91; Resp 26; Pulse Ox 89% on 5 lpm NC; jb4 20:30 BP 108 / 59; Pulse 84; Resp 24; Pulse Ox 90% on 5 lpm NC; jb4 21:15 BP 112 / 65; Pulse 93; Resp 24; Pulse Ox 90% on 5 lpm NC; jb4 15:45 Body Mass Index 23.03 (58.97 kg, 160.02 cm) em 16:10 Pt placed on O2 \T\ 3L per NC. O2 sat up to 88%. sv 16:25 O2 increased to 4L. sv ED Course: 15:28 Patient arrived in ED. ag5 15:48 Triage completed. em 15:49 Donny Millan PA is PHCP. cp 15:49 Sebas Louis MD is Attending Physician. cp 15:49 Arm band placed on. em 15:56 Farrah Smith RN is Primary Nurse. sv 16:10 Patient has correct armband on for positive identification. Placed in gown. Bed in low sv position. Call light in reach. Side rails up X2. Adult w/ patient. patient monitor on. Pulse ox on. NIBP on. Door closed. Warm blanket given. Head of bed elevated. 16:20 First set of blood cultures drawn by me. Inserted saline lock: 22 gauge in left sv forearm, using aseptic technique. Blood collected. Flushed left forearm with 5 ml normal saline. 16:28 Second set of blood cultures drawn by ED staff, Flu and/or RSV swab sent to lab. Strep sv swab sent to lab. 16:35 CBC with Diff Sent. sv 16:35 Blood Culture Adult (2) Sent. sv 16:35 Basic Metabolic Panel Sent. sv 16:35 D-Dimer Sent. sv 16:36 C-Reactive Protein Sent. sv 16:36 Lactate Sent. sv 16:36 CPK Sent. sv 16:36 Ferritin Sent. sv 16:36 Troponin (emerg Dept Use Only) Sent. sv 16:36 Protime (+inr) Sent. sv 16:36 Procalcitonin Sent. sv 16:36 LFT's Sent. sv 17:15 Chest Single View XRAY Sent. sv 17:17 Chest Single View XRAY In Process Unspecified. EDMS 17:40 Awaiting lab results, Awaiting radiology results. Awaiting re-evaluation by ER provider.sv 17:40 Throat Culture Sent. sv 18:14 Inserted saline lock: 22 gauge in right antecubital area, using aseptic technique. hb 18:15 CT Chest For PE Angio In Process Unspecified. EDMS 19:06 Primary Nurse role handed off by Farrah Smith RN sv 19:06 Report given to Cadence BUSTOS and Tyson BUSTOS. sv 19:09 Dakota Farmer, JULI is Primary Nurse. jb4 19:19 Anibal Grimm DO is Hospitalizing Provider. cp 21:29 Fracisco Braga MD is Hospitalizing Provider. cp 21:45 No provider procedures requiring assistance completed. Patient admitted, IV remains in jb4 place. Administered Medications: 16:51 Drug: NS 0.9% 250 ml Route: IV; Rate: bolus; Site: left forearm; sv 17:20 Follow up: Response: No adverse reaction; IV Status: Completed infusion; IV Intake: sv 250ml 16:51 Drug: SOLU-Medrol 80 mg Route: IVP; Site: left forearm; sv 18:00 Follow up: Response: No adverse reaction sv 19:15 Drug: Rocephin 1 grams Route: IV; Rate: calculated rate; Site: right antecubital; jb4 19:17 Follow up: IV Status: Completed infusion; IV Intake: 10ml jb4 19:45 Follow up: Response: No adverse reaction jb4 19:25 Drug: Zithromax 500 mg Route: IVPB; Infused Over: 1 hrs; Site: right antecubital; jb4 20:25 Follow up: Response: No adverse reaction; IV Status: Completed infusion; IV Intake: jb4 250ml Intake: 17:20 IV: 250ml; Total: 250ml. sv 19:17 IV: 10ml; Total: 260ml. jb4 20:25 IV: 250ml; Total: 510ml. jb4 Outcome: 19:20 Decision to Hospitalize by Provider. cp 21:45 Admitted to ICU accompanied by tech, via stretcher, room ICU 1. jb4 21:45 Condition: stable 21:45 Discharge instructions given to patient, family, Instructed on the need for admit, Demonstrated understanding of instructions. 22:02 Patient left the ED. jb4 Signatures: Dispatcher [employer] Farrah Cross, JULI BUSTOS sv Jorge Khan, RN RN Donny Pierre PA PA cp Becky Briscoe, JULI BUSTOS Dakota Farmer RN RN jb4 Renard Wiley 5
--- NOTE | 2020-08-19 19:21 | EDPHYS ---
Physician Documentation [facility] Name: Yahaira Hill Age: 79 yrs Sex: Female : 1940 Arrival Date: 08/19/2020 Time: 15:28 Bed 4 Private MD: ED Physician Sebas Louis HPI: 08/19 16:24 This 79 yrs old Female presents to ER via Wheelchair with complaints of cp COVID+, Breathing Difficulty, General Weakness. 16:25 The patient has shortness of breath at rest. cp 16:25 Onset: The symptoms/episode began/occurred gradually. Duration: The symptoms are cp continuous, and are steadily getting worse. Associated signs and symptoms: Pertinent negatives: chest pain, productive cough, fever. Daughter reports patient tested positive for COVID-19 on 08-10-2020 and shortness of breath has been getting worse. Historical: - Allergies: 15:49 Sulfa (Sulfonamide Antibiotics); em - PMHx: 15:49 Hypertension; CVA; em - PSHx: 15:49 None; em - Immunization history:: Adult Immunizations up to date. - Social history:: Smoking status: Patient denies any tobacco usage or history of. ROS: 16:30 Constitutional: Negative for body aches, chills, fever, poor PO intake. cp 16:30 Eyes: Negative for injury, pain, redness, and discharge. cp 16:30 ENT: Negative for ear pain, sore throat, difficulty swallowing, difficulty handling secretions. 16:30 Cardiovascular: Negative for chest pain, edema, palpitations. 16:30 Respiratory: Positive for cough, shortness of breath, at rest. Negative for wheezing. 16:30 Abdomen/GI: Negative for abdominal pain, nausea, vomiting, and diarrhea. 16:30 Back: Negative for radiated pain. 16:30 Neuro: Negative for altered mental status, headache, syncope. 16:30 All other systems are negative. Exam: 16:27 ECG was reviewed by the Attending Physician. cp 16:33 Constitutional: The patient appears in no acute distress, alert, awake, cp non-diaphoretic, non-toxic, well developed, well nourished. 16:33 Head/Face: Normocephalic, atraumatic. cp 16:33 Eyes: Periorbital structures: appear normal, Conjunctiva: normal, no exudate, no injection, Sclera: no appreciated abnormality, Lids and lashes: appear normal, bilaterally. 16:33 ENT: External ear(s): are unremarkable, Nose: is normal, Mouth: Lips: dry, Oral mucosa: moist, Posterior pharynx: Airway: no evidence of obstruction, patent. 16:33 Neck: ROM/movement: is normal, is supple, no meningismus, no nuchal rigidity. 16:33 Chest/axilla: Inspection: normal, Palpation: is normal, no crepitus, no tenderness. 16:33 Cardiovascular: Rate: normal, Rhythm: irregular, Edema: is not appreciated, JVD: is not appreciated. 16:33 Respiratory: the patient does not display signs of respiratory distress, Respirations: labored breathing, is not present, shallow respirations, that is moderate, Breath sounds: decreased breath sounds, that are moderate, throughout, stridor, is not appreciated, wheezing: is not appreciated. 16:33 Abdomen/GI: Inspection: abdomen appears normal, Palpation: abdomen is soft and non-tender, in all quadrants. 16:33 Back: pain, is absent, ROM is normal. 16:33 Neuro: Orientation: to person, place \T\ time. Mentation: able to follow commands, slow to respond, Cerebellar function: is grossly normal, Motor: moves all fours, general weakness with no focal deficits, Sensation: is normal. Vital Signs: 15:45 BP 92 / 56; Pulse 103; Resp 26; Temp 98.4; Pulse Ox 76% on R/A; Weight 58.97 kg; Height em 5 ft. 3 in. (160.02 cm); Pain 0/10; 16:10 Pulse Ox 76% on R/A; sv 16:25 Pulse Ox 87% on 3 lpm NC; sv 16:30 BP 80 / 64; Pulse 93; Resp 30; Pulse Ox 91% on 4 lpm NC; sv 17:15 BP 112 / 63; Pulse 99; Resp 30; Pulse Ox 89% on 4 lpm NC; sv 19:00 BP 111 / 70; Pulse 91; Resp 26; Pulse Ox 89% on 5 lpm NC; jb4 20:30 BP 108 / 59; Pulse 84; Resp 24; Pulse Ox 90% on 5 lpm NC; jb4 21:15 BP 112 / 65; Pulse 93; Resp 24; Pulse Ox 90% on 5 lpm NC; jb4 15:45 Body Mass Index 23.03 (58.97 kg, 160.02 cm) em 16:10 Pt placed on O2 \T\ 3L per NC. O2 sat up to 88%. sv 16:25 O2 increased to 4L. sv MDM: 16:05 Patient medically screened. cp 16:30 Differential diagnosis: pneumonia, pulmonary edema, Pulmonary Embolism Sepsis. cp 18:00 Data reviewed: vital signs, nurses notes, lab test result(s), EKG, radiologic studies, cp plain films. 18:00 Counseling: I had a detailed discussion with the patient and/or guardian regarding: the cp historical points, exam findings, and any diagnostic results supporting the discharge/admit diagnosis, lab results, radiology results, the need for further work-up and treatment in the hospital. Physician consultation: Franco BARNARD was contacted at 18:00, regarding admission, to the telemetry unit. patient's condition. 08/19 16:18 Order name: C-Reactive Protein cp 08/19 16:18 Order name: Urine Culture cp 08/19 16:18 Order name: D-Dimer cp 08/19 16:18 Order name: Basic Metabolic Panel cp 08/19 16:18 Order name: Blood Culture Adult (2) cp 08/19 16:18 Order name: CBC with Diff cp 08/19 16:18 Order name: CPK cp 08/19 16:18 Order name: Lactate cp 08/19 16:18 Order name: LFT's cp 08/19 16:18 Order name: Procalcitonin cp 08/19 16:18 Order name: Protime (+inr) cp 08/19 16:18 Order name: Troponin (emerg Dept Use Only) cp 08/19 16:18 Order name: Urine Microscopic Only cp 08/19 16:18 Order name: Ferritin cp 08/19 16:18 Order name: Influenza Screen (a \T\ B); Complete Time: 17:40 cp 08/19 16:18 Order name: Strep; Complete Time: 17:40 cp 08/19 16:19 Order name: C-Reactive Protein; Complete Time: 17:40 EDMS 08/19 16:19 Order name: Urine Culture EDPA 08/19 16:19 Order name: D-Dimer; Complete Time: 17:40 EDMS 08/19 16:19 Order name: Basic Metabolic Panel; Complete Time: 17:40 EDMS 08/19 16:19 Order name: Blood Culture EDMS 08/19 16:19 Order name: CBC with Automated Diff; Complete Time: 17:40 EDMS 08/19 16:19 Order name: Creatine Phosphokinase; Complete Time: 17:40 EDMS 08/19 16:19 Order name: Lactate; Complete Time: 17:40 EDMS 08/19 16:19 Order name: Liver (Hepatic) Function; Complete Time: 17:40 EDMS 08/19 16:19 Order name: Procalcitonin; Complete Time: 19:18 EDMS 08/19 16:19 Order name: Protime (+INR); Complete Time: 17:40 EDMS 08/19 16:20 Order name: Troponin (Emerg Dept Use Only); Complete Time: 17:40 EDMS 08/19 16:20 Order name: Urine Microscopic Only EDMS 08/19 16:20 Order name: Ferritin; Complete Time: 17:40 EDMS 08/19 16:18 Order name: Chest Single View XRAY; Complete Time: 19:18 cp 08/19 16:18 Order name: Cardiac monitoring; Complete Time: 16:35 cp 08/19 16:18 Order name: EKG - Nurse/Tech; Complete Time: 16:35 cp 08/19 16:18 Order name: IV Saline Lock - Large Bore; Complete Time: 16:35 cp 08/19 16:18 Order name: Labs collected and sent; Complete Time: 16:35 cp 08/19 16:18 Order name: O2 Per Protocol; Complete Time: 16:35 cp 08/19 16:18 Order name: O2 Sat Monitoring; Complete Time: 16:34 cp 08/19 17:23 Order name: Throat Culture EDMS 08/19 17:41 Order name: CT Chest For PE Angio; Complete Time: 19:18 cp 08/19 20:32 Order name: Lactate Sepsis 2 HR Follow-up EDMS EC:27 Rate is 105 beats/min. Rhythm is irregular. QRS interval is normal. QT interval is cp normal. T waves are Inverted in lead III. Interpreted by me. Reviewed by me. Administered Medications: 16:51 Drug: NS 0.9% 250 ml Route: IV; Rate: bolus; Site: left forearm; sv 17:20 Follow up: Response: No adverse reaction; IV Status: Completed infusion; IV Intake: sv 250ml 16:51 Drug: SOLU-Medrol 80 mg Route: IVP; Site: left forearm; sv 18:00 Follow up: Response: No adverse reaction sv 19:15 Drug: Rocephin 1 grams Route: IV; Rate: calculated rate; Site: right antecubital; jb4 19:17 Follow up: IV Status: Completed infusion; IV Intake: 10ml jb4 19:45 Follow up: Response: No adverse reaction jb4 19:25 Drug: Zithromax 500 mg Route: IVPB; Infused Over: 1 hrs; Site: right antecubital; jb4 20:25 Follow up: Response: No adverse reaction; IV Status: Completed infusion; IV Intake: jb4 250ml Disposition: 08/19/20 19:20 Hospitalization ordered by Fracisco Braga for Inpatient Admission. Preliminary diagnosis are Pneumonia due to other specified infectious organisms, Coronavirus infection, unspecified, Respiratory failure, unspecified with hypoxia, Unspecified atrial fibrillation. - Bed requested for Intensive Care Unit. - Status is Inpatient Admission. jb4 - Condition is Fair. - Problem is new. - Symptoms have improved. Addendum: 08/21/2020 17:43 Co-signature as Attending Physician, Sebas Louis MD I agree with the assessment and k dr plan of care. Signatures: Dispatcher [employer] Irene Colby RN RN kl Verde, Stephanie, RN RN sv Rittger, Kevin, MD MD [facility] Jorge Khan RN RN em Page, Corey, PA PA cp Bryson, James, RN RN jb4 Corrections: (The following items were deleted from the chart) 08/19 16:35 16:18 Accucheck ordered. cp sv 20:18 19:20 Hospitalization Ordered by Anibal Grimm DO for Inpatient Admission. Preliminary kl diagnosis is Pneumonia due to other specified infectious organisms; Coronavirus infection, unspecified; Respiratory failure, unspecified with hypoxia. Bed requested for Telemetry/MedSurg (Inpatient). Status is Inpatient Admission. Condition is Fair. Problem is new. Symptoms have improved. cp 20:27 20:18 08/19/2020 19:20 Hospitalization Ordered by Anibal Prezas DO for Inpatient cp Admission. Preliminary diagnosis is Pneumonia due to other specified infectious organisms; Coronavirus infection, unspecified; Respiratory failure, unspecified with hypoxia. Bed requested for Intensive Care Unit. Status is Inpatient Admission. Condition is Fair. Problem is new. Symptoms have improved. kl 21:30 20:27 08/19/2020 19:20 Hospitalization Ordered by Anibal Grimm DO for Inpatient cp Admission. Preliminary diagnosis is Pneumonia due to other specified infectious organisms; Coronavirus infection, unspecified; Respiratory failure, unspecified with hypoxia; Unspecified atrial fibrillation. Bed requested for Intensive Care Unit. Status is Inpatient Admission. Condition is Fair. Problem is new. Symptoms have improved. cp 22:02 21:30 08/19/2020 19:20 Hospitalization Ordered by Fracisco Braga MD for Inpatient jb4 Admission. Preliminary diagnosis is Pneumonia due to other specified infectious organisms; Coronavirus infection, unspecified; Respiratory failure, unspecified with hypoxia; Unspecified atrial fibrillation. Bed requested for Intensive Care Unit. Status is Inpatient Admission. Condition is Fair. Problem is new. Symptoms have improved. cp
[2020-08-19] MEDS ORDERED: ONDANSETRON 4 MG/2 ML VIAL IV PRN (21:24)
[2020-08-19] MEDS ORDERED: ACETAMINOPHEN 500 MG TAB PO PRN (21:24)
[2020-08-19] MEDS ORDERED: POTASSIUM 25 MEQ EFFERV TAB PO ONE (21:54)
--- NOTE | 2020-08-19 22:39 | P.HP ---
Certification for Inpatient Patient admitted to: Inpatient With expected LOS: >2 Midnights Patient will require the following post-hospital care: None Practitioner: I am a practitioner with admitting privileges, knowledge of patient current condition, hospital course, and medical plan of care. Services: Services provided to patient in accordance with Admission requirements found in Title 42 Section 412.3 of the Code of Federal Regulations <Franco Pedraza - Last Filed: 08/19/20 22:33> Patient History Date of Service: 08/19/20 Reason for admission: COVID pneumonia History of Present Illness: 79-year-old female with history of atrial fibrillation on chronic anticoagulation therapy with Eliquis, hypertension, hyperlipidemia presents emergency department for shortness of breath. Patient was diagnosed with coronel virus on 08/10/2020, daughter reports that she has been becoming more more short of breath and weak/tired over the course of the last 2-3 days. Patient was brought to the emergency department for evaluation found to be hypoxic at 76% on room air. Patient is not on home oxygen for any reason. Patient evaluated further in the emergency department, it CRP level elevated 128, D-dimer elevated 1079, CT PE protocol demonstrates no pulmonary emboli moderately severe coronel virus pattern with extensive ground glass opacities present in bilateral lung [place]. Patient was started on oxygen per nasal cannula, was saturating around 88-89% on 4-5 L at time of evaluation. Patient was given IV steroids in the ER and I was consulted for admission. When I saw the patient in the ER she was awake, alert, oriented x3. Daughter is at bedside. Patient not tachypneic or any severe distress but still satting around 88% on 5 L per nasal cannula. Patient will be admitted for further evaluation and management. Doubt bacterial infection or sepsis at this time. - Past Medical/Surgical History -: Hypertension -: Hyperlipidemia -: Atrial fibrillation on chronic anticoagulation therapy-Eliquis -: none Psychosocial/ Personal History: Patient currently lives at home with her family. - Family History Family History: Reviewed- Non-Contributory - Social History Smoking Status: Never smoker Alcohol use: No CD- Drugs: No Caffeine use: Yes Place of Residence: Home <Franco Pedraza - Last Filed: 08/19/20 22:33> Date of Service: 08/19/20 <Fracisco Braga - Last Filed: 08/24/20 13:57> Allergies Sulfa (Sulfonamide Antibiotics) Allergy (Verified 08/19/20 21:19) Anaphylaxis Review of Systems 10-point ROS is otherwise unremarkable General: Chills, Weakness, Malaise Respiratory: Cough, Shortness of Breath <Franco Pedraza - Last Filed: 08/19/20 22:33> Physical Examination - Vital Signs Temperature: 97.7 F Blood Pressure: 98/85 Pulse: 96 Respirations: 20 Pulse Ox (%): 89 - Physical Exam General: Alert, In no apparent distress, Oriented x3 HEENT: Atraumatic, Normocephalic, Other (Use membranes dry) Neck: Supple Respiratory: Diminished (Bilaterally) Cardiovascular: No edema, Irregular heart rate/rhythm (Rate controlled atrial fibrillation) Capillary refill: <2 Seconds Gastrointestinal: Normal bowel sounds, No tenderness, No masses, No rebound, No guarding Musculoskeletal: No contractures, No erythema, No tenderness Integumentary: No tenderness/swelling, No erythema, No warmth Neurological: Normal speech, Normal strength at 5/5 x4 extr, Normal tone, Sensation intact - Studies Laboratory Data (last 24 hrs) 08/19/20 16:20: WBC 10.4, Hgb 12.8, Hct 37.8, Plt Count 320 08/19/20 16:20: PT 19.8 H, INR 1.70 08/19/20 16:20: Sodium 132 L, Potassium 3.3 L, BUN 16, Creatinine 0.99, Glucose 117 H, Total Bilirubin 1.0, AST 62 H, ALT 21, Alkaline Phosphatase 57 Microbiology Data (last 24 hrs): 08/19/20 16:20 Throat Group A Streptococcus Rapid Screen - Final 08/19/20 16:20 Nasopharnyx Influenza Type A Antigen Screen - Final 08/19/20 16:20 Nasopharnyx Influenza Type B Antigen Screen - Final <Franco Pedraza - Last Filed: 08/19/20 22:33> Assessment and Plan - Plan Assessment Acute respiratory failure with hypoxia secondary to COVID pneumonia Atrial fibrillation on chronic anticoagulation therapy Hypertension Hyperlipidemia Plan Acute respiratory failure with hypoxia secondary to COVID pneumonia: Continue with aggressive IV steroids, oral supplementation, supplemental oxygen titrated saturations to greater than 88%. Pulmonology consult in place. Daily room air saturations. Continue Eliquis for DVT prophylaxis. Atrial fibrillation on chronic anticoagulation therapy: Continue Eliquis and metoprolol. Monitor on telemetry. Hypertension: Continue metoprolol and amlodipine. Hyperlipidemia: Continue atorvastatin. Discharge Plan: Home Plan to discharge in: 72 Hours - Advance Directives Does patient have a Living Will: No Does patient have a Durable POA for Healthcare: No - Code Status/Comfort Care Code Status Assessed: Yes (Full code) Critical Care: No Time Spent Managing Pts Care (In Minutes): 55 <Franco Pedraza - Last Filed: 08/19/20 22:33> - Plan Plan of care reviewed with Franco Pedraza. Agree with plan as noted above. COVID-19 pneumonia. IV steroids, wean O2. <Fracisco Braga - Last Filed: 08/24/20 13:57>
[2020-08-19] MEDS: METOPROLOL TAR 50 MG TAB PO SCH (23:29)
[2020-08-19] MEDS: ASCORBIC ACID 500 MG TABLET PO SCH (23:31)
[2020-08-19] MEDS: APIXABAN 5 MG TABLET PO SCH (23:31)
[2020-08-19] MEDS: ATORVASTATIN 20 MG TAB PO SCH (23:31)
[2020-08-19] MEDS: MELATONIN 5 MG TABLET PO PRN (23:39)
[2020-08-20] MEDS: METHYLPREDNISOLONE 125 MG INJ IV SCH ×3 (00:23→17:23)
[2020-08-20 00:24] LABS: Urine Bacteria 20-50 /HPF (<20)
[2020-08-20] MEDS ORDERED: METHYLPREDNISOLONE 40 MG INJ IV SCH (01:00)
[2020-08-20 05:04] LABS: Absolute Lymphocytes (CBC) 0.5 K/uL (0.7-4.9); Hematocrit 34.6 % (36.0-45.0); Lymphocytes % 6.6 % (15.3-44.8); MPV 8.7 fL (7.6-11.3); RBC Red Blood Cell Count 3.69 M/uL (3.86-4.86)
[2020-08-20 05:52] LABS: Ferritin 559.7 ng/mL (8-388); Magnesium 2.1 mg/dL (1.8-2.4); Potassium 4.8 mmol/L (3.5-5.1)
[2020-08-20] MEDS: METOPROLOL TAR 50 MG TAB PO SCH (09:00)
[2020-08-20] MEDS ORDERED: AMLODIPINE 5 MG TAB PO SCH (09:00)
[2020-08-20] MEDS: ASCORBIC ACID 500 MG TABLET PO SCH ×3 (10:25→20:40)
[2020-08-20] MEDS: ZINC SULFATE 220 MG CAP PO SCH (10:25)
[2020-08-20] MEDS: VITAMIN D 1000 UNIT TAB PO SCH (10:25)
[2020-08-20] MEDS: APIXABAN 5 MG TABLET PO SCH ×2 (10:28→20:40)
--- NOTE | 2020-08-20 11:21 | P.CNS ---
Date of Consult: 08/20/20 Reason for Consult: Respiratory failure from coronal bead wire taper Complaint: COVID pneumonia History of Present Illness: Patient is 79 years of age admitted with respiratory distress she was diagnosed with coronel virus about 10 days ago because progressively more short of breath CT scan consistent with coronel virus pneumonia she is feeling better on nasal cannula oxygen was treated with a Medrol Dosepak doing better Allergies Sulfa (Sulfonamide Antibiotics) Allergy (Verified 08/19/20 21:19) Anaphylaxis Home Medications: Amlodipine [Norvasc*] 5 mg PO BID 08/19/20 Apixaban [Eliquis] 5 mg PO BID 08/19/20 Aspirin [Cottle Aspirin EC] 81 mg PO DAILY 08/19/20 Atorvastatin Calcium 20 mg PO DAILY 08/19/20 Metoprolol Succinate 50 mg PO BID 08/19/20 - Past Medical/Surgical History Diabetic: No -: Hypertension -: Hyperlipidemia -: Atrial fibrillation on chronic anticoagulation therapy-Eliquis -: CVA -: none Psychosocial/ Personal History: Patient currently lives at home with her family. - Social History Alcohol use: No CD- Drugs: No Caffeine use: Yes Place of Residence: Home Review of Systems 10-point ROS is otherwise unremarkable General: Weakness Respiratory: Shortness of Breath Physical Examination Temp Pulse Resp BP Pulse Ox 97.4 F 81 23 H 99/52 L 94 08/20/20 08:00 08/20/20 08:00 08/20/20 08:00 08/20/20 08:00 08/20/20 08:00 General: Alert, In no apparent distress, Oriented x3 Respiratory: Clear to auscultation bilaterally, Diminished Laboratory Data (last 24 hrs) 08/19/20 16:20: WBC 10.4, Hgb 12.8, Hct 37.8, Plt Count 320 08/19/20 16:20: PT 19.8 H, INR 1.70 08/19/20 16:20: Sodium 132 L, Potassium 3.3 L, BUN 16, Creatinine 0.99, Glucose 117 H, Total Bilirubin 1.0, AST 62 H, ALT 21, Alkaline Phosphatase 57 - Problems (1) Acute respiratory failure due to severe acute respiratory syndrome yue navirus 2 (SARS-CoV-2) infection Current Visit: Yes Status: Acute Plan: Patient is 79 years of age admitted with respiratory failure from coronel virus she is improving labs reviewed CRP elevated CT scan consistent with coronel virus infection patient has got good saturation continue with steroids possible discharge tomorrow
--- NOTE | 2020-08-20 16:32 | P.PN ---
Subjective Date of Service: 08/20/20 Chief Complaint: COVID pneumonia Subjective: Improving (Feeling a little bit better already, continues with shortness of breath, still on 5 L nasal cannula, without any other complaints at this time. Nursing report she desaturates quickly with any movement) Review of Systems 10-point ROS is otherwise unremarkable Physical Examination - Vital Signs Temperature: 98.6 F Blood Pressure: 111/56 Pulse: 80 Respirations: 24 Pulse Ox (%): 89 - Physical Exam General: Alert, In no apparent distress HEENT: Sclerae nonicteric Respiratory: Other (Nonlabored on 5 L) Cardiovascular: No edema, Regular rate/rhythm Gastrointestinal: Soft and benign, No tenderness Musculoskeletal: No tenderness Integumentary: No rashes Neurological: Normal speech, Normal affect - Studies Laboratory Data (last 24 hrs) 08/19/20 16:20: WBC 10.4, Hgb 12.8, Hct 37.8, Plt Count 320 08/19/20 16:20: PT 19.8 H, INR 1.70 08/19/20 16:20: Sodium 132 L, Potassium 3.3 L, BUN 16, Creatinine 0.99, Glucose 117 H, Total Bilirubin 1.0, AST 62 H, ALT 21, Alkaline Phosphatase 57 Microbiology Data (last 24 hrs): 08/19/20 16:28 Blood - Blood Anaerobic Blood Culture - Final 08/19/20 16:20 Throat Group A Streptococcus Rapid Screen - Final 08/19/20 16:20 Nasopharnyx Influenza Type A Antigen Screen - Final 08/19/20 16:20 Nasopharnyx Influenza Type B Antigen Screen - Final Assessment & Plan Physician Review Additional Text: Acute respiratory failure with hypoxia secondary to COVID pneumonia Atrial fibrillation on chronic anticoagulation therapy Hypertension Hyperlipidemia Plan Acute respiratory failure with hypoxia secondary to COVID pneumonia: Continue with aggressive IV steroids, oral supplementation, supplemental oxygen titrated saturations to greater than 88%. Pulmonology consulted, appreciate assistance Daily room air saturations. Continue Eliquis for DVT prophylaxis. Wean oxygen as tolerated Will likely need home oxygen on discharge Atrial fibrillation on chronic anticoagulation therapy: Continue Eliquis and me toprolol. Monitor on telemetry. Hypertension: Continue metoprolol and amlodipine. Hyperlipidemia: Continue atorvastatin. Code: Full Dispo: anticipte dc home in 24-48hrs Time Spent Managing Pts Care (In Minutes): 37
[2020-08-20] MEDS: ATORVASTATIN 20 MG TAB PO SCH (20:40)
[2020-08-21] MEDS: METHYLPREDNISOLONE 125 MG INJ IV SCH ×3 (01:20→16:02)
[2020-08-21 06:11] LABS: Urine Appearance CLEAR; Urine Bilirubin NEGATIVE (NEG); Urine Blood TRACE (NEG); Urine Color YELLOW; Urine Glucose NEGATIVE (NEG); Urine Protein NEGATIVE (NEG); Urine Specific Gravity <=1.005 (1.005-1.030); Urine pH 6.5 (5.0-7.0)
[2020-08-21 06:15] LABS: Urine Microscopic Reflex ORDER UMIC
[2020-08-21 06:38] LABS: Urine Bacteria <20 /HPF (<20); Urine RBC <5 /HPF (NONE SEEN)
[2020-08-21 06:40] LABS: Urine Mucus 1+ /HPF (NONE SEEN)
[2020-08-21 06:56] LABS: C-Reactive Protein 65.4 mg/L (<3.00); Ferritin 604.8 ng/mL (8-388)
--- NOTE | 2020-08-21 08:38 | P.PN ---
Subjective Date of Service: 08/21/20 Chief Complaint: COVID pneumonia Subjective: Worsening (she reports feeling better this morning, however has required more oxygen overnight, currently at 6L NC. Desaturated quickly to 78% got up to bedside chair this morning. Feels appetite is coming back) Review of Systems 10-point ROS is otherwise unremarkable Physical Examination - Vital Signs Temperature: 97.2 F Blood Pressure: 117/75 Pulse: 81 Respirations: 27 Pulse Ox (%): 88 - Physical Exam General: Alert, In no apparent distress HEENT: Sclerae nonicteric Respiratory: Other (mild labored respirations on 6L NC) Cardiovascular: No edema, Irregular heart rate/rhythm Gastrointestinal: Soft and benign, No tenderness Integumentary: No rashes Neurological: Normal speech, Normal affect - Studies Microbiology Data (last 24 hrs): 08/19/20 16:28 Blood - Blood Anaerobic Blood Culture - Final Assessment & Plan Physician Review Additional Text: Acute respiratory failure with hypoxia secondary to COVID pneumonia Atrial fibrillation on chronic anticoagulation therapy Hypertension Hyperlipidemia Plan Acute respiratory failure with hypoxia secondary to COVID pneumonia: Continue with IV solumedrol 80q8, oral supplementation, supplemental oxygen titrated saturations to greater than 88%. Pulmonology consulted, appreciate assistance Daily room air saturations. Continue Eliquis for DVT prophylaxis. increasing oxygen need overnight/this morning Ferritin and CRP down trending Wean oxygen as tolerated Will likely need home oxygen on discharge Atrial fibrillation on chronic anticoagulation therapy: Continue Eliquis and metoprolol. Monitor on telemetry. Hypertension: Continue metoprolol and amlodipine. Hyperlipidemia: Continue atorvastatin. Code: Full Dispo: anticipte dc home in 24-48hrs Time Spent Managing Pts Care (In Minutes): 35
[2020-08-21] MEDS: VITAMIN D 1000 UNIT TAB PO SCH (09:53)
[2020-08-21] MEDS: APIXABAN 5 MG TABLET PO SCH ×2 (09:53→21:27)
[2020-08-21] MEDS: ZINC SULFATE 220 MG CAP PO SCH (09:53)
[2020-08-21] MEDS: ASCORBIC ACID 500 MG TABLET PO SCH ×3 (12:22→21:27)
[2020-08-21] MEDS: ATORVASTATIN 20 MG TAB PO SCH (21:27)
[2020-08-22] MEDS: METHYLPREDNISOLONE 125 MG INJ IV SCH ×2 (00:37→08:42)
[2020-08-22 05:30] LABS: BUN Blood Urea Nitrogen 19 mg/dL (7-18); Bicarbonate 31 mmol/L (21-32); Ferritin 458.2 ng/mL (8-388); Glucose Level 141 mg/dL (74-106); Potassium 3.8 mmol/L (3.5-5.1); Sodium Level 140 mmol/L (136-145)
[2020-08-22] MEDS: APIXABAN 5 MG TABLET PO SCH ×2 (08:41→20:21)
[2020-08-22] MEDS: VITAMIN D 1000 UNIT TAB PO SCH (08:41)
[2020-08-22] MEDS: ZINC SULFATE 220 MG CAP PO SCH (08:41)
[2020-08-22] MEDS: ASCORBIC ACID 500 MG TABLET PO SCH ×3 (08:42→20:21)
[2020-08-22] MEDS ORDERED: POTASSIUM CL SA 10 MEQ TAB PO ONE (09:00)
--- NOTE | 2020-08-22 09:27 | P.PN ---
Subjective Date of Service: 08/22/20 Chief Complaint: COVID pneumonia Subjective: Other (Feels she is breathing slightly better, having more of an appetite and strength back. up to bedside commode yesterday Denies abdominal pain, no diarrhea On high-flow overnight, was oxygen saturations seemed to be getting slightly worse, required more FiO2 this morning) Review of Systems 10-point ROS is otherwise unremarkable Physical Examination - Vital Signs Temperature: 97.3 F Blood Pressure: 126/86 Pulse: 83 Respirations: 20 Pulse Ox (%): 87 - Physical Exam General: Alert, In no apparent distress HEENT: Other (Sitting up in bed eating breakfast), Sclerae nonicteric Respiratory: Other (Nonlabored on high-flow nasal cannula) Cardiovascular: No edema, Irregular heart rate/rhythm (Irregularly regular, HR 90-110) Gastrointestinal: Soft and benign, No tenderness Musculoskeletal: No tenderness Neurological: Normal speech, Normal affect - Studies Microbiology Data (last 24 hrs): 08/19/20 16:20 Throat Culture & Sensitivity - Final NORMAL UPPER RESPIRATORY DAIANA GROWN. Assessment & Plan Physician Review Additional Text: Acute respiratory failure with hypoxia secondary to COVID pneumonia Atrial fibrillation on chronic anticoagulation therapy Hypertension Hyperlipidemia Plan Acute respiratory failure with hypoxia secondary to COVID pneumonia: Continue with IV solumedrol 80q8, oral supplementation, supplemental oxygen titrated saturations to greater than 88%. Pulmonology following Continue Eliquis for DVT prophylaxis. increasing oxygen need overnight/this morning, will obtain a CXR today Ferritin and CRP down trending Will likely need home oxygen on discharge Symptomatically reports feeling better Atrial fibrillation on chronic anticoagulation therapy: Continue Eliquis and metoprolol. Monitor on telemetry. Hypertension: Continue metoprolol, home amlodipine held due to low BP Hyperlipidemia: Continue atorvastatin. Code: Full VTE: Eliquis (home med) Dispo: anticipate dc home in ~48hrs Time Spent Managing Pts Care (In Minutes): 35
[2020-08-22] MEDS: METOPROLOL XL 50 MG TAB PO SCH ×2 (09:43→20:21)
--- NOTE | 2020-08-22 11:52 | P.PN ---
Subjective Date of Service: 08/22/20 Chief Complaint: COVID pneumonia Subjective: Improving (Patient is feeling better still on high-flow oxygen) Review of Systems General: Weakness Respiratory: Shortness of Breath Physical Examination - Vital Signs Temperature: 97.3 F Blood Pressure: 119/72 Pulse: 105 Respirations: 22 Pulse Ox (%): 86 - Studies Microbiology Data (last 24 hrs): 08/19/20 16:20 Throat Culture & Sensitivity - Final NORMAL UPPER RESPIRATORY DAIANA GROWN. Assessment & Plan - Problems (Diagnosis) (1) Acute respiratory failure due to severe acute respiratory syndrome coronavirus 2 (SARS-CoV-2) infection Current Visit: Yes Status: Acute Plan: Patient is gradually improving Asif nasal cannula oxygen CRP is now less than 50 vital signs stable reduce Solu-Medrol to 40 mg 3 times a day and may taper again tomorrow ferritin is also declining
--- NOTE | 2020-08-22 12:14 | RAD REPORT ---
EXAM DESCRIPTION: Kevin Single View08/22/2020 11:07 am CLINICAL HISTORY: Chest pain COMPARISON: August 19 FINDINGS: No change in moderate bilateral pulmonary opacities which may represent pulmonary edema or pneumonia The heart remains enlarged
[2020-08-22] MEDS: METHYLPREDNISOLONE 40 MG INJ IV SCH (16:18)
[2020-08-23] MEDS: METHYLPREDNISOLONE 40 MG INJ IV SCH ×3 (00:22→21:55)
[2020-08-23 05:15] LABS: BUN Blood Urea Nitrogen 19 mg/dL (7-18); Bicarbonate 31 mmol/L (21-32); Glucose Level 138 mg/dL (74-106); Magnesium 2.5 mg/dL (1.8-2.4); Potassium 4.2 mmol/L (3.5-5.1); Sodium Level 141 mmol/L (136-145)
[2020-08-23] MEDS: ASPIRIN EC 81 MG TAB PO SCH (08:02)
[2020-08-23] MEDS: ASCORBIC ACID 500 MG TABLET PO SCH ×3 (08:02→21:55)
[2020-08-23] MEDS: APIXABAN 5 MG TABLET PO SCH ×2 (08:02→21:54)
[2020-08-23] MEDS: ZINC SULFATE 220 MG CAP PO SCH (08:02)
[2020-08-23] MEDS: ATORVASTATIN 20 MG TAB PO SCH (08:02)
[2020-08-23] MEDS: VITAMIN D 1000 UNIT TAB PO SCH (08:03)
[2020-08-23] MEDS: METOPROLOL XL 50 MG TAB PO SCH ×2 (08:03→21:54)
--- NOTE | 2020-08-23 12:22 | P.PN ---
Subjective Date of Service: 08/23/20 Chief Complaint: COVID pneumonia Subjective: Improving (Patient is feeling better requiring high concentrations of oxygen) Review of Systems General: Weakness Respiratory: Shortness of Breath Physical Examination - Vital Signs Temperature: 97.9 F Blood Pressure: 127/76 Pulse: 76 Respirations: 23 Pulse Ox (%): 90 Assessment & Plan - Problems (Diagnosis) (1) Acute respiratory failure due to severe acute respiratory syndrome coronavirus 2 (SARS-CoV-2) infection Current Visit: Yes Status: Acute Plan: continue with present treatment CRP is decline to less than 20 labs reviewed Solu-Medrol dose decreased continue weaning down the oxygen
--- NOTE | 2020-08-23 12:47 | P.PN ---
Subjective Date of Service: 08/23/20 Chief Complaint: COVID pneumonia Subjective: No new changes Patient looks well. She denies any complain. She denies shortness of breath. She desaturates whenever the high-flow oxygen is weaned to oxygen by nasal cannula. Physical Examination - Vital Signs Temperature: 97.9 F Blood Pressure: 127/76 Pulse: 76 Respirations: 23 Pulse Ox (%): 90 - Physical Exam General: Alert, In no apparent distress Neck: Supple, JVD not distended Respiratory: Crackles/rales (Bibasilar) Cardiovascular: No edema, Regular rate/rhythm, Normal S1 S2 Gastrointestinal: Normal bowel sounds, Soft and benign, No tenderness Musculoskeletal: No swelling, No tenderness Integumentary: No rashes Neurological: Normal strength at 5/5 x4 extr Assessment And Plan - Current Problems (Diagnosis) (1) Acute respiratory failure due to severe acute respiratory syndrome coronavirus 2 (SARS-CoV-2) infection Current Visit: Yes Status: Acute (2) Pneumonia due to COVID-19 virus Current Visit: Yes Status: Acute (3) Chronic atrial fibrillation Current Visit: Yes Status: Acute (4) Chronic anticoagulation Current Visit: Yes Status: Acute (5) Hypertension Current Visit: Yes Status: Acute (6) Hyperlipidemia Current Visit: Yes Status: Acute - Plan Inflammatory markers have trended down. Patient overall clinically improved. She still requiring high-flow oxygen. Wean oxygen as tolerated. Continue IV steroid. Pulmonary is following. She is on Eliquis. Vitamin D and C supplementation. Zinc supplementation Continue metoprolol for hypertension Continue Lipitor. Physician Review Additional Text: Acute respiratory failure with hypoxia secondary to COVID pneumonia Atrial fibrillation on chronic anticoagulation therapy Hypertension Hyperlipidemia Plan Acute respiratory failure with hypoxia secondary to COVID pneumonia: Continue with IV solumedrol 80q8, oral supplementation, supplemental oxygen titrated saturations to greater than 88%. Pulmonology following Continue Eliquis for DVT prophylaxis. increasing oxygen need overnight/this morning, will obtain a CXR today Ferritin and CRP down trending Will likely need home oxygen on discharge Symptomatically reports feeling better Atrial fibrillation on chronic anticoagulation therapy: Continue Eliquis and metoprolol. Monitor on telemetry. Hypertension: Continue metoprolol, home amlodipine held due to low BP Hyperlipidemia: Continue atorvastatin. Code: Full VTE: Eliquis (home med) Dispo: anticipate dc home in ~48hrs
[2020-08-24 05:38] LABS: C-Reactive Protein 13.1 mg/L (<3.00); Ferritin 304.1 ng/mL (8-388)
[2020-08-24] MEDS: METOPROLOL XL 50 MG TAB PO SCH ×2 (08:30→21:00)
[2020-08-24] MEDS: ASCORBIC ACID 500 MG TABLET PO SCH ×3 (08:31→21:00)
[2020-08-24] MEDS: ATORVASTATIN 20 MG TAB PO SCH (08:31)
[2020-08-24] MEDS: ZINC SULFATE 220 MG CAP PO SCH (08:31)
[2020-08-24] MEDS: APIXABAN 5 MG TABLET PO SCH ×2 (08:31→21:00)
[2020-08-24] MEDS: ASPIRIN EC 81 MG TAB PO SCH (08:31)
[2020-08-24] MEDS: METHYLPREDNISOLONE 40 MG INJ IV SCH ×2 (08:32→21:00)
[2020-08-24] MEDS: VITAMIN D 1000 UNIT TAB PO SCH (09:52)
--- NOTE | 2020-08-24 10:56 | P.PN ---
Subjective Date of Service: 08/24/20 Chief Complaint: COVID pneumonia Patient looks well. She denies any complain. She denies shortness of breath. She is eating well. Physical Examination - Vital Signs Temperature: 96.8 F Blood Pressure: 150/76 Pulse: 89 Respirations: 17 Pulse Ox (%): 93 - Physical Exam General: Alert, In no apparent distress HEENT: Mucous membr. moist/pink Neck: Supple, JVD not distended Respiratory: Normal air movement Cardiovascular: No edema, Regular rate/rhythm, Normal S1 S2 Gastrointestinal: Normal bowel sounds, Soft and benign, Non-distended Musculoskeletal: No swelling Integumentary: No rashes Neurological: Other (Nonfocal) Assessment And Plan - Current Problems (Diagnosis) (1) Acute respiratory failure due to severe acute respiratory syndrome coronavirus 2 (SARS-CoV-2) infection Current Visit: Yes Status: Acute (2) Pneumonia due to COVID-19 virus Current Visit: Yes Status: Acute (3) Chronic atrial fibrillation Current Visit: Yes Status: Acute (4) Chronic anticoagulation Current Visit: Yes Status: Acute (5) Hypertension Current Visit: Yes Status: Acute (6) Hyperlipidemia Current Visit: Yes Status: Acute - Plan Patient overall clinically improved She still requiring high-flow oxygen. Continue to wean high-flow oxygen as tolerated. Continue IV steroid. Pulmonary is following.
[2020-08-25 05:32] LABS: C-Reactive Protein 10.6 mg/L (<3.00); Ferritin 318.2 ng/mL (8-388); Potassium 4.3 mmol/L (3.5-5.1)
[2020-08-25] MEDS: METHYLPREDNISOLONE 40 MG INJ IV SCH ×2 (07:52→20:59)
[2020-08-25] MEDS: ATORVASTATIN 20 MG TAB PO SCH (07:52)
[2020-08-25] MEDS: ASCORBIC ACID 500 MG TABLET PO SCH ×3 (07:52→20:59)
[2020-08-25] MEDS: VITAMIN D 1000 UNIT TAB PO SCH (07:52)
[2020-08-25] MEDS: ASPIRIN EC 81 MG TAB PO SCH (07:52)
[2020-08-25] MEDS: APIXABAN 5 MG TABLET PO SCH ×2 (07:53→20:59)
[2020-08-25] MEDS: METOPROLOL XL 50 MG TAB PO SCH ×2 (07:53→20:59)
[2020-08-25] MEDS: ZINC SULFATE 220 MG CAP PO SCH (07:53)
[2020-08-25] MEDS: BENZONATATE 100 MG CAP PO PRN (08:29)
--- NOTE | 2020-08-25 09:54 | P.PN ---
Subjective Date of Service: 08/25/20 Chief Complaint: COVID pneumonia Patient looks well. She denies any complain. Oxygen this gradually being weaned down. Physical Examination - Vital Signs Temperature: 97.4 F Blood Pressure: 138/74 Pulse: 80 Respirations: 22 Pulse Ox (%): 89 - Physical Exam General: Alert, In no apparent distress Respiratory: Crackles/rales (Bibasilar) Cardiovascular: No edema, Regular rate/rhythm, Normal S1 S2 Gastrointestinal: Normal bowel sounds, Soft and benign Musculoskeletal: No swelling Integumentary: No rashes - Studies Microbiology Data (last 24 hrs): 08/19/20 16:28 Blood - Blood Aerobic Blood Culture - Final No growth in 5 days. 08/19/20 16:28 Blood - Blood Anaerobic Blood Culture - Final 08/19/20 16:28 Blood - Blood Aerobic Blood Culture - Final No growth in 5 days. 08/19/20 16:28 Blood - Blood Anaerobic Blood Culture - Final No growth in 5 days. Assessment And Plan - Current Problems (Diagnosis) (1) Acute respiratory failure due to severe acute respiratory syndrome coronavirus 2 (SARS-CoV-2) infection Current Visit: Yes Status: Acute (2) Pneumonia due to COVID-19 virus Current Visit: Yes Status: Acute (3) Chronic atrial fibrillation Current Visit: Yes Status: Acute (4) Chronic anticoagulation Current Visit: Yes Status: Acute (5) Hypertension Current Visit: Yes Status: Acute (6) Hyperlipidemia Current Visit: Yes Status: Acute - Plan Patient overall clinically improved She still requiring high-flow oxygen. Continue to wean high-flow oxygen as tolerated. Continue IV steroid. Pulmonary is following.
--- NOTE | 2020-08-25 14:04 | P.PN ---
Subjective Date of Service: 08/25/20 Chief Complaint: COVID pneumonia Subjective: Improving (Patient is doing better feeling better less short of breath oxygen requirements have declined) Review of Systems General: Weakness Respiratory: Shortness of Breath Physical Examination - Vital Signs Temperature: 97.4 F Blood Pressure: 118/74 Pulse: 66 Respirations: 20 Pulse Ox (%): 91 - Studies Microbiology Data (last 24 hrs): 08/19/20 16:28 Blood - Blood Aerobic Blood Culture - Final No growth in 5 days. 08/19/20 16:28 Blood - Blood Anaerobic Blood Culture - Final 08/19/20 16:28 Blood - Blood Aerobic Blood Culture - Final No growth in 5 days. 08/19/20 16:28 Blood - Blood Anaerobic Blood Culture - Final No growth in 5 days. Assessment & Plan - Problems (Diagnosis) (1) Acute respiratory failure due to severe acute respiratory syndrome coronavirus 2 (SARS-CoV-2) infection Current Visit: Yes Status: Acute Plan: Admitted with respiratory failure patient is clinically improving oxygen requirements are declining will try on a daily basis nasal cannula oxygen preparation for discharge from a tree parameters overall improving continue with steroids Physician Review Additional Text: A
[2020-08-26] MEDS: ASPIRIN EC 81 MG TAB PO SCH (09:46)
[2020-08-26] MEDS: ZINC SULFATE 220 MG CAP PO SCH (09:46)
[2020-08-26] MEDS: APIXABAN 5 MG TABLET PO SCH ×2 (09:47→20:58)
[2020-08-26] MEDS: METHYLPREDNISOLONE 40 MG INJ IV SCH ×2 (09:47→20:58)
[2020-08-26] MEDS: ATORVASTATIN 20 MG TAB PO SCH (09:47)
[2020-08-26] MEDS: ASCORBIC ACID 500 MG TABLET PO SCH ×3 (09:48→21:20)
[2020-08-26] MEDS: VITAMIN D 1000 UNIT TAB PO SCH (09:48)
[2020-08-26] MEDS: METOPROLOL XL 50 MG TAB PO SCH ×2 (09:48→20:58)
--- NOTE | 2020-08-26 10:59 | P.PN ---
Subjective Date of Service: 08/26/20 Chief Complaint: COVID pneumonia Subjective: Improving (Patient is improving feeling better oxygen requirements are declining) Review of Systems General: Weakness Respiratory: Shortness of Breath Physical Examination - Vital Signs Temperature: 96.8 F Blood Pressure: 112/65 Pulse: 80 Respirations: 18 Pulse Ox (%): 90 Assessment & Plan - Problems (Diagnosis) (1) Acute respiratory failure due to severe acute respiratory syndrome coronavirus 2 (SARS-CoV-2) infection Current Visit: Yes Status: Acute Plan: Admitted with respiratory failure from coronel virus continue to wean down the oxygen incentive spirometry prone position ventilation CRP ferritin levels declining continue to monitor possible discharge
--- NOTE | 2020-08-26 11:57 | P.PN ---
Subjective Date of Service: 08/26/20 Chief Complaint: COVID pneumonia Patient looks well. She denies any complain. Oxygen this gradually being weaned down. She is not tolerating 30% FiO2 on 50 l/min high-flow. Physical Examination - Vital Signs Temperature: 96.8 F Blood Pressure: 112/65 Pulse: 80 Respirations: 18 Pulse Ox (%): 90 - Physical Exam General: Alert, In no apparent distress Respiratory: Normal air movement, Crackles/rales Cardiovascular: No edema, Regular rate/rhythm, Normal S1 S2 Gastrointestinal: Soft and benign, No tenderness Musculoskeletal: No swelling Integumentary: No rashes Assessment And Plan - Current Problems (Diagnosis) (1) Acute respiratory failure due to severe acute respiratory syndrome coronavirus 2 (SARS-CoV-2) infection Current Visit: Yes Status: Acute (2) Pneumonia due to COVID-19 virus Current Visit: Yes Status: Acute (3) Chronic atrial fibrillation Current Visit: Yes Status: Acute (4) Chronic anticoagulation Current Visit: Yes Status: Acute (5) Hypertension Current Visit: Yes Status: Acute (6) Hyperlipidemia Current Visit: Yes Status: Acute - Plan Patient continues to improve. She is currently asymptomatic. Continue to wean high-flow oxygen as tolerated. Continue IV steroid. Pulmonary is following. Physician Review Additional Text: Acute respiratory failure with hypoxia secondary to COVID pneumonia Atrial fibrillation on chronic anticoagulation therapy Hypertension Hyperlipidemia Plan Acute respiratory failure with hypoxia secondary to COVID pneumonia: Continue with IV solumedrol 80q8, oral supplementation, supplemental oxygen titrated saturations to greater than 88%. Pulmonology following Continue Eliquis for DVT prophylaxis. increasing oxygen need overnight/this morning, will obtain a CXR today Ferritin and CRP down trending Will likely need home oxygen on discharge Symptomatically reports feeling better Atrial fibrillation on chronic anticoagulation therapy: Continue Eliquis and metoprolol. Monitor on telemetry. Hypertension: Continue metoprolol, home amlodipine held due to low BP Hyperlipidemia: Continue atorvastatin. Code: Full VTE: Eliquis (home med) Dispo: anticipate dc home in ~48hrs
[2020-08-27 07:23] VITALS: BMI 23.0
[2020-08-27] MEDS: ASPIRIN EC 81 MG TAB PO SCH (08:04)
[2020-08-27] MEDS: ZINC SULFATE 220 MG CAP PO SCH (08:04)
[2020-08-27] MEDS: ASCORBIC ACID 500 MG TABLET PO SCH ×3 (08:05→20:00)
[2020-08-27] MEDS: ATORVASTATIN 20 MG TAB PO SCH (08:05)
[2020-08-27] MEDS: METHYLPREDNISOLONE 40 MG INJ IV SCH ×2 (08:05→20:00)
[2020-08-27] MEDS: APIXABAN 5 MG TABLET PO SCH ×2 (08:05→20:00)
[2020-08-27] MEDS: VITAMIN D 1000 UNIT TAB PO SCH (08:05)
[2020-08-27] MEDS: METOPROLOL XL 50 MG TAB PO SCH ×2 (08:06→20:00)
--- NOTE | 2020-08-27 09:36 | P.PN ---
Subjective Date of Service: 08/27/20 Chief Complaint: COVID pneumonia No new complaint. She is feeding well. Physical Examination - Vital Signs Temperature: 97.3 F Blood Pressure: 133/68 Pulse: 82 Respirations: 15 Pulse Ox (%): 92 - Physical Exam General: Alert, In no apparent distress HEENT: Other (High-flow oxygen) Neck: JVD not distended Respiratory: Normal air movement Cardiovascular: No edema Gastrointestinal: Soft and benign Musculoskeletal: No swelling Integumentary: No rashes Neurological: Normal strength at 5/5 x4 extr Assessment And Plan - Current Problems (Diagnosis) (1) Acute respiratory failure due to severe acute respiratory syndrome coron avirus 2 (SARS-CoV-2) infection Current Visit: Yes Status: Acute (2) Pneumonia due to COVID-19 virus Current Visit: Yes Status: Acute (3) Chronic atrial fibrillation Current Visit: Yes Status: Acute (4) Chronic anticoagulation Current Visit: Yes Status: Acute (5) Hypertension Current Visit: Yes Status: Acute (6) Hyperlipidemia Current Visit: Yes Status: Acute - Plan Patient continues to improve. She is currently asymptomatic. Continue to wean oxygen Continue IV steroid. Pulmonary is following.
--- NOTE | 2020-08-27 11:34 | P.PN ---
Subjective Date of Service: 08/27/20 Chief Complaint: COVID pneumonia Subjective: Improving (Patient is feeling better still requiring high concentrations of oxygen) Review of Systems General: Weakness Respiratory: Shortness of Breath Physical Examination - Vital Signs Temperature: 97.3 F Blood Pressure: 108/49 Pulse: 84 Respirations: 20 Pulse Ox (%): 91 Assessment & Plan - Problems (Diagnosis) (1) Acute respiratory failure due to severe acute respiratory syndrome coronavirus 2 (SARS-CoV-2) infection Current Visit: Yes Status: Acute Plan: Respiratory failure CRP and ferritin levels or declining plan to wean off the oxygen no change in current medications vital signs stable
[2020-08-28 05:52] LABS: Ferritin 383.6 ng/mL (8-388)
[2020-08-28 06:12] LABS: BUN Blood Urea Nitrogen 18 mg/dL (7-18); Bicarbonate 33 mmol/L (21-32); Glucose Level 114 mg/dL (74-106); Magnesium 2.3 mg/dL (1.8-2.4); Potassium 4.1 mmol/L (3.5-5.1); Sodium Level 141 mmol/L (136-145)
[2020-08-28] MEDS: APIXABAN 5 MG TABLET PO SCH ×2 (08:09→20:02)
[2020-08-28] MEDS: VITAMIN D 1000 UNIT TAB PO SCH (08:09)
[2020-08-28] MEDS: ASPIRIN EC 81 MG TAB PO SCH (08:09)
[2020-08-28] MEDS: METOPROLOL XL 50 MG TAB PO SCH ×2 (08:09→20:02)
[2020-08-28] MEDS: ASCORBIC ACID 500 MG TABLET PO SCH ×3 (08:09→20:02)
[2020-08-28] MEDS: METHYLPREDNISOLONE 40 MG INJ IV SCH ×2 (08:10→20:02)
[2020-08-28] MEDS: ZINC SULFATE 220 MG CAP PO SCH (08:10)
[2020-08-28] MEDS: ATORVASTATIN 20 MG TAB PO SCH (08:10)
--- NOTE | 2020-08-28 10:14 | P.PN ---
Subjective Date of Service: 08/28/20 Chief Complaint: COVID pneumonia No new complaint. The patient remain on high-flow oxygen which is now weaned to 30% FiO2 and 50 liters/minute flow. She appears comfortable. Physical Examination - Vital Signs Temperature: 96.8 F Blood Pressure: 122/66 Pulse: 79 Respirations: 19 Pulse Ox (%): 91 - Physical Exam General: Alert, In no apparent distress Respiratory: Crackles/rales Cardiovascular: No edema Gastrointestinal: Soft and benign, Non-distended Musculoskeletal: No swelling Integumentary: No rashes Neurological: Other (Nonfocal.) Assessment And Plan - Current Problems (Diagnosis) (1) Acute respiratory failure due to severe acute respiratory syndrome coronavirus 2 (SARS-CoV-2) infection Current Visit: Yes Status: Acute (2) Pneumonia due to COVID-19 virus Current Visit: Yes Status: Acute (3) Chronic atrial fibrillation Current Visit: Yes Status: Acute (4) Chronic anticoagulation Current Visit: Yes Status: Acute (5) Hypertension Current Visit: Yes Status: Acute (6) Hyperlipidemia Current Visit: Yes Status: Acute - Plan Patient continues to improve. She is currently asymptomatic. Continue to wean oxygen. May be able to wean to oxygen by nasal cannula today. On IV steroid. Pulmonary is following.
[2020-08-28] MEDS: BENZONATATE 100 MG CAP PO PRN (20:42)
[2020-08-29] MEDS: ASCORBIC ACID 500 MG TABLET PO SCH ×3 (08:11→19:57)
[2020-08-29] MEDS: METOPROLOL XL 50 MG TAB PO SCH ×2 (08:12→19:57)
[2020-08-29] MEDS: ATORVASTATIN 20 MG TAB PO SCH (08:12)
[2020-08-29] MEDS: APIXABAN 5 MG TABLET PO SCH ×2 (08:12→19:57)
[2020-08-29] MEDS: ZINC SULFATE 220 MG CAP PO SCH (08:12)
[2020-08-29] MEDS: ASPIRIN EC 81 MG TAB PO SCH (08:13)
[2020-08-29] MEDS: METHYLPREDNISOLONE 40 MG INJ IV SCH (08:13)
[2020-08-29] MEDS: VITAMIN D 1000 UNIT TAB PO SCH (08:13)
--- NOTE | 2020-08-29 09:31 | P.PN ---
Subjective Date of Service: 08/29/20 Chief Complaint: COVID pneumonia Patient has no new complaint. Her BNP shows elevated bicarb which could suggest CO2 retention from hypoventilation. She appears comfortable. Physical Examination - Vital Signs Temperature: 97 F Blood Pressure: 129/71 Pulse: 88 Respirations: 24 Pulse Ox (%): 93 - Physical Exam General: Alert, In no apparent distress HEENT: Mucous membr. moist/pink Neck: JVD not distended Respiratory: Normal air movement, Crackles/rales (Mild bibasilar crackles) Cardiovascular: No edema, Regular rate/rhythm, Normal S1 S2 Gastrointestinal: Soft and benign, Non-distended Musculoskeletal: No swelling Integumentary: No rashes Neurological: Other (Nonfocal) Assessment And Plan - Current Problems (Diagnosis) (1) Acute respiratory failure due to severe acute respiratory syndrome coronavirus 2 (SARS-CoV-2) infection Current Visit: Yes Status: Acute (2) Pneumonia due to COVID-19 virus Current Visit: Yes Status: Acute (3) Chronic atrial fibrillation Current Visit: Yes Status: Acute (4) Chronic anticoagulation Current Visit: Yes Status: Acute (5) Hypertension Current Visit: Yes Status: Acute (6) Hyperlipidemia Current Visit: Yes Status: Acute - Plan She is currently asymptomatic. It appears patient is developing CO2 retention from hypoventilation. Weaned from high-flow oxygen as much as possible. Continue IV steroid Dc home once patient is able to tolerate up to 4 L of oxygen by nasal cannula. Pulmonary is following. Physician Review Additional Text: Miguel
--- NOTE | 2020-08-29 11:33 | P.PN ---
Subjective Date of Service: 08/29/20 Chief Complaint: COVID pneumonia Subjective: Improving (Patient is doing better oxygenation is improving currently on nasal cannula oxygen) Review of Systems General: Weakness Respiratory: Shortness of Breath Physical Examination - Vital Signs Temperature: 97 F Blood Pressure: 129/71 Pulse: 88 Respirations: 24 Pulse Ox (%): 93 Assessment & Plan - Problems (Diagnosis) (1) Acute respiratory failure due to severe acute respiratory syndrome coronavirus 2 (SARS-CoV-2) infection Current Visit: Yes Status: Acute Plan: Patient on is improving is back on nasal cannula oxygen CRP is less than 15 ferritin is less than 500 plan for discharge if status care to the 90% on 4 L discharged on prednisone 20 b.i.d. for a week then 10 b.i.d. telephone visit with me in a week Discharge Plan: Home Plan to discharge in: 24 Hours Physician Review Additional Text: A
[2020-08-29] MEDS: predniSONE 20 MG TAB PO SCH (19:57)
[2020-08-30] MEDS: predniSONE 20 MG TAB PO SCH ×2 (08:26→21:03)
[2020-08-30] MEDS: APIXABAN 5 MG TABLET PO SCH ×2 (08:26→21:03)
[2020-08-30] MEDS: ASPIRIN EC 81 MG TAB PO SCH (08:26)
[2020-08-30] MEDS: VITAMIN D 1000 UNIT TAB PO SCH (08:26)
[2020-08-30] MEDS: ATORVASTATIN 20 MG TAB PO SCH (08:26)
[2020-08-30] MEDS: METOPROLOL XL 50 MG TAB PO SCH ×2 (08:27→21:03)
[2020-08-30] MEDS: ZINC SULFATE 220 MG CAP PO SCH (08:27)
[2020-08-30] MEDS: ASCORBIC ACID 500 MG TABLET PO SCH ×3 (08:27→21:03)
--- NOTE | 2020-08-30 12:33 | P.PN ---
Subjective Date of Service: 08/30/20 Chief Complaint: COVID pneumonia Subjective: Improving (Patient's condition is improving she is still having some desaturation tolerating nasal cannula oxygen) Review of Systems General: Weakness Respiratory: Shortness of Breath Physical Examination - Vital Signs Temperature: 96.9 F Blood Pressure: 109/55 Pulse: 84 Respirations: 22 Pulse Ox (%): 91 Assessment & Plan - Problems (Diagnosis) (1) Acute respiratory failure due to severe acute respiratory syndrome coronavirus 2 (SARS-CoV-2) infection Current Visit: Yes Status: Acute Plan: Respiratory failure continue to wean off oxygen continue with present dose of steroids and anticoagulation vital signs stable possible discharge tomorrow on prednisone 20 b.i.d. for a week then 10 twice a day and 4 L of nasal cannula oxygen patient is weak ferritin level is less than 500 CRP is less than 15
--- NOTE | 2020-08-30 17:23 | P.PN ---
Subjective Date of Service: 08/30/20 Chief Complaint: COVID pneumonia Subjective: Improving (slowly improving. On 4-5 L NC. Reportedly desaturates quickly to 70s-80s with minimal movement. Patient otherwise feeling better) Review of Systems 10-point ROS is otherwise unremarkable Physical Examination - Vital Signs Temperature: 97.3 F Blood Pressure: 132/74 Pulse: 94 Respirations: 20 Pulse Ox (%): 91 - Physical Exam General: Alert, In no apparent distress HEENT: Sclerae nonicteric Respiratory: Other (Nonlabored) Cardiovascular: Irregular heart rate/rhythm Gastrointestinal: Soft and benign, No tenderness Musculoskeletal: No tenderness Integumentary: No rashes Neurological: Normal speech, Normal affect Assessment & Plan Physician Review Additional Text: Acute respiratory failure due to severe acute respiratory syndrome coronavirus 2 (SARS-CoV-2) infection Pneumonia due to COVID-19 virus Chronic atrial fibrillation Chronic anticoagulation Hypertension Hyperlipidemia improving, but still requiring some O2 supplementation, desaturates quickly CRP improved weaning O2 as tolerated continue prednisone 20mg BID DC home once tolerating 4L NC pulm following Dispo: anticipate dc home in 24-48hrs, likely tomorrow, needs home O2 Time Spent Managing Pts Care (In Minutes): 35
[2020-08-31 03:59] LABS: BUN Blood Urea Nitrogen 21 mg/dL (7-18); Bicarbonate 34 mmol/L (21-32); Ferritin 334.3 ng/mL (8-388); Glucose Level 103 mg/dL (74-106); Magnesium 2.5 mg/dL (1.8-2.4); Potassium 4.7 mmol/L (3.5-5.1); Sodium Level 141 mmol/L (136-145)
[2020-08-31] MEDS: VITAMIN D 1000 UNIT TAB PO SCH (07:57)
[2020-08-31] MEDS: ATORVASTATIN 20 MG TAB PO SCH (07:58)
[2020-08-31] MEDS: APIXABAN 5 MG TABLET PO SCH ×2 (07:58→20:28)
[2020-08-31] MEDS: ASCORBIC ACID 500 MG TABLET PO SCH ×3 (07:58→20:28)
[2020-08-31] MEDS: ZINC SULFATE 220 MG CAP PO SCH (07:58)
[2020-08-31] MEDS: predniSONE 20 MG TAB PO SCH ×2 (07:58→20:28)
[2020-08-31] MEDS: ASPIRIN EC 81 MG TAB PO SCH (07:58)
[2020-08-31] MEDS: METOPROLOL XL 50 MG TAB PO SCH ×2 (07:59→20:28)
--- NOTE | 2020-08-31 15:33 | P.PN ---
Subjective Date of Service: 08/31/20 Chief Complaint: COVID pneumonia Subjective: No new changes (Patient feels a little bit better this morning, states she may have overdone herself yesterday getting out of bed.) Review of Systems 10-point ROS is otherwise unremarkable Physical Examination - Vital Signs Temperature: 97 F Blood Pressure: 117/67 Pulse: 79 Respirations: 18 Pulse Ox (%): 91 - Physical Exam General: Alert, In no apparent distress HEENT: Sclerae nonicteric Respiratory: Other (Labored respirations on 5 L nasal cannula. SpO2: 70s% while talking to me) Cardiovascular: No edema, Irregular heart rate/rhythm Gastrointestinal: Soft and benign, Non-distended, No tenderness Musculoskeletal: No tenderness Integumentary: No rashes Neurological: Normal speech, Normal affect Assessment & Plan Physician Review Additional Text: Acute respiratory failure due to severe acute respiratory syndrome coronavirus 2 (SARS-CoV-2) infection Pneumonia due to COVID-19 virus Chronic atrial fibrillation Chronic anticoagulation Hypertension Hyperlipidemia Still requiring 5-6 L nasal cannula. Desaturating to 70% just getting up to bedside chair. weaning O2 as tolerated continue prednisone 20mg BID DC home once tolerating 4L NC pulm following Patient overall has been improving, however has been very difficult to wean her oxygen enough for her to be discharged home safely She may possibly improve in the next 1-2 days. Or she may benefit from SNF Will check a CXR in a.m. Continue home Eliquis Dispo: anticipate dc home in 24-48hrs, likely tomorrow, needs home O2 Time Spent Managing Pts Care (In Minutes): 40
[2020-08-31] MEDS: ENSURE ENLIVE 237 ML CAN PO SCH (20:28)
[2020-08-31] MEDS: MELATONIN 5 MG TABLET PO PRN (20:29)
[2020-09-01 04:24] LABS: C-Reactive Protein 4.22 mg/L (<3.00); Magnesium 2.2 mg/dL (1.8-2.4); Potassium 4.9 mmol/L (3.5-5.1)
[2020-09-01] MEDS: VITAMIN D 1000 UNIT TAB PO SCH (07:31)
[2020-09-01] MEDS: ASPIRIN EC 81 MG TAB PO SCH (07:31)
[2020-09-01] MEDS: ATORVASTATIN 20 MG TAB PO SCH (07:31)
[2020-09-01] MEDS: ASCORBIC ACID 500 MG TABLET PO SCH ×3 (07:31→20:25)
[2020-09-01] MEDS: ENSURE ENLIVE 237 ML CAN PO SCH ×2 (07:32→20:26)
[2020-09-01] MEDS: ZINC SULFATE 220 MG CAP PO SCH (07:32)
[2020-09-01] MEDS: predniSONE 20 MG TAB PO SCH ×2 (07:32→20:25)
[2020-09-01] MEDS: METOPROLOL XL 50 MG TAB PO SCH ×2 (07:32→20:25)
[2020-09-01] MEDS: APIXABAN 5 MG TABLET PO SCH ×2 (07:32→20:26)
--- NOTE | 2020-09-01 08:24 | RAD REPORT ---
EXAM DESCRIPTION: Kevin Single View09/01/2020 6:00 am CLINICAL HISTORY: Hypoxia COMPARISON: August 22 FINDINGS: Mild improvement in the bilateral pulmonary opacities probably pneumonia The heart remains enlarged
--- NOTE | 2020-09-01 11:04 | P.PN ---
Subjective Date of Service: 09/01/20 (Hospitalist) Chief Complaint: COVID pneumonia Subjective: Improving (Patient is improving feeling well doing better the some nasal cannula oxygen still has mild desat) Patient is doing better shortness of breath has improved no new complaint Review of Systems General: Weakness Respiratory: Shortness of Breath Physical Examination - Vital Signs Temperature: 96.8 F Blood Pressure: 134/64 Pulse: 71 Respirations: 16 Pulse Ox (%): 92 - Physical Exam General: Alert, In no apparent distress, Oriented x3 Respiratory: Clear to auscultation bilaterally, Diminished Assessment & Plan - Problems (Diagnosis) (1) Acute respiratory failure due to severe acute respiratory syndrome coronavirus 2 (SARS-CoV-2) infection Current Visit: Yes Status: Acute Plan: Respiratory failure from coronel virus patient is improving nasal cannula oxygen was set up with home O2 delayed physical therapy CRP in ferritin levels are declining chest x-rays also improving possible discharge tomorrow on home oxygen continue with prednisone Discharge Plan: Home Plan to discharge in: 24 Hours
[2020-09-01 11:20] LABS: Arterial Blood Carboxyhemoglob 1.2 % (0-1.5); Blood Gas Oxyhemoglobin 87.8 % (94-97); Blood O2 Saturation 89.9 % (92-98.5)
[2020-09-02] MEDS: ENSURE ENLIVE 237 ML CAN PO SCH (09:00)
[2020-09-02] MEDS: METOPROLOL XL 50 MG TAB PO SCH (10:12)
[2020-09-02] MEDS: ASCORBIC ACID 500 MG TABLET PO SCH (10:12)
[2020-09-02] MEDS: APIXABAN 5 MG TABLET PO SCH (10:12)
[2020-09-02] MEDS: predniSONE 20 MG TAB PO SCH (10:12)
[2020-09-02] MEDS: ZINC SULFATE 220 MG CAP PO SCH (10:13)
[2020-09-02] MEDS: ASPIRIN EC 81 MG TAB PO SCH (10:13)
[2020-09-02] MEDS: ATORVASTATIN 20 MG TAB PO SCH (10:13)
[2020-09-02] MEDS: VITAMIN D 1000 UNIT TAB PO SCH (10:13)
--- NOTE | 2020-09-02 11:21 | P.DS ---
Admission Date: 08/19/20 Discharge Date: 09/02/20 Disposition: ROUTINE DISCHARGE Discharge Condition: FAIR Reason for Admission: COVID pneumonia - Problems (1) Acute respiratory failure due to severe acute respiratory syndrome coronavi katya 2 (SARS-CoV-2) infection Current Visit: Yes Status: Acute Brief History of Present Illness: Patient is 79 years of age admitted with respiratory distress she was diagnosed with coronel virus about 10 days ago because progressively more short of breath CT scan consistent with coronel virus pneumonia she is feeling better on nasal cannula oxygen was treated with a Medrol Dosepak doing better Hospital Course: Patient is 79 years of age admitted with respiratory failure from coronal virus she had upper long stay in the hospital at the time of discharge doing well alert oriented responsive cooperative saturation satisfactory on 4 L nasal cannula oxygen plan to discharge home resume all her home medications patient is already on aspirin and prednisone 10 mg twice a day The time of discharge alert oriented responsive cooperative vital signs stable chest clear abdomen soft extremities no edema neurological alert oriented responsive Vital Signs/Physical Exam: Temp Pulse Resp BP Pulse Ox 97.2 F 79 18 135/76 93 09/02/20 08:00 09/02/20 10:12 09/02/20 08:00 09/02/20 10:12 09/02/20 08:00 Laboratory Data at Discharge: WBC 7.4 K/uL (4.3-10.9) D 08/20/20 03:42 Hgb 11.7 g/dL (12.0-15.0) L 08/20/20 03:42 Hct 34.6 % (36.0-45.0) L 08/20/20 03:42 Plt Count 291 K/uL (152-406) 08/20/20 03:42 PT 19.8 SECONDS (9.5-12.5) H 08/19/20 16:20 INR 1.70 08/19/20 16:20 Sodium 140 mmol/L (136-145) 09/01/20 03:33 Potassium 4.9 mmol/L (3.5-5.1) 09/01/20 03:33 BUN 20 mg/dL (7-18) H 09/01/20 03:33 Creatinine 0.66 mg/dL (0.55-1.3) 09/01/20 03:33 Glucose 114 mg/dL (74-106) H 09/01/20 03:33 Magnesium 2.2 mg/dL (1.8-2.4) 09/01/20 03:33 Total Bilirubin 1.0 mg/dL (0.2-1.0) 08/19/20 16:20 AST 62 U/L (15-37) H 08/19/20 16:20 ALT 21 U/L (12-78) 08/19/20 16:20 Alkaline Phosphatase 57 U/L (45-117) 08/19/20 16:20 Home Medications: Amlodipine [Norvasc*] 5 mg PO BID 08/19/20 Apixaban [Eliquis *] 5 mg PO BID 08/19/20 Aspirin [Coke Aspirin EC] 81 mg PO DAILY 08/19/20 Atorvastatin Calcium 20 mg PO DAILY 08/19/20 Metoprolol Succinate 50 mg PO BID 08/19/20 predniSONE [Prednisone*] 10 mg PO BID #30 tab 09/02/20 New Medications: predniSONE [Prednisone*] 10 mg PO BID #30 tab Followup: NONE,NONE [Primary Care Provider] - Francis Cazares MD [ACTIVE - CAN ADMIT] -
[2020-09-02 13:02] VITALS: BP 124/56; TEMP 96.8
[2020-09-02 14:14] VITALS: O2SAT 91
== END 2020-09-02 16:05 | disposition home or self-care (01) | DRG 177 ==
LOC: ER 15:26 → ERHOLD 19:23 → 3RD-ICU 21:37 → 4TH 08-29 16:40
PROVIDERS: ADMIT Hospitalist; ATTEND Internal Medicine Sleep Medicine
DX: U07.1 COVID-19 (principal); J12.89 Other viral pneumonia; J80 Acute respiratory distress syndrome; I48.20 Chronic atrial fibrillation, unspecified; E78.5 Hyperlipidemia, unspecified; I10 Essential (primary) hypertension; Z88.1 Allergy status to other antibiotic agents; Z86.73 Personal history of transient ischemic attack (TIA), and cerebral infarction without residual deficits; Z79.01 Long term (current) use of anticoagulants; Z79.82 Long term (current) use of aspirin; Z79.899 Other long term (current) drug therapy; Z79.52 Long term (current) use of systemic steroids
CPT/HCPCS: 36415; 71045; 71275; 80048; 80076; 81003; 81015; 82550; 82728; 82805; 83605; 83735; 84145; 84484; 85025; 85379; 85610; 86140; 87040; 87070; 87081; 87086; 87088; 87804; 93005; 94002; 94003; 94010; 94760; 97110; 97112; 97161; 99285; J0456; J0696; J2920; J2930; J7050; J7512; Q9967; U0002

== ENCOUNTER 2020-09-07 14:03 | Inpatient (IN) | payer OTHER ==
--- OUTSIDE RECORDS SUMMARY | 2020-09-07 14:30 | XMS REPORT | Continuity of Care Document ---
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 Personal history 05/02/2019 [facility] of transient ischemic attack (TIA), and cerebral infarction without residual deficits 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/11/2019 [facility] (current) drug therapy [facility]FP 05/02/2019 [facility] (current) use of antithrombotics/an tiplatelets 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 [facility] (current) use of aspirin Acute myocardial Resolved Problem 05/02/2019 [facility] infarction of anterior wall (disorder) Cerebrovascular Active Problem 05/02/2019 [facility] accident (disorder) Hypertensive Resolved Problem 05/02/2019 [facility] disorder, systemic arterial (disorder) Myocardial Active Problem 05/02/2019 [facility] infarction (disorder) Hemiplegia, 05/02/2019 [facility] unspecified affecting right dominant side 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 Paroxysmal atrial 05/02/2019 [facility] fibrillation Prediabetes 05/02/2019 [facility] Abnormal results 05/02/2019 [facility] of thyroid function studies NIHSS score 0 05/02/2019 [facility] Hyperlipidemia, 05/02/2019 [facility] unspecified Hypertensive 05/02/2019 [facility] urgency 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 [facility] (current) use of anticoagulants 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 Acute CVA Active Problem 10/28/2016 Family (cerebrovascular Silva gnostic accident) Mixed Active Diagnosis 11/23/2016 Family hyperlipidemia Diagn ostic Acute GA, anterior Active Problem 10/28/2016 Family wall Diagnostic Body mass index Active Diagnosis 10/06/2016 Fam jase (BMI) 23.0-23.9, [facility] adult Benign essential Active Problem 11/23/2016 [facility] hypertension Diagnos tic Coronary artery Active Diagnosis 11/23/2016 Fam jase disease involving Di agnostic [place] coronary artery, angina presence unspecified, unspecified whether [place] or transplanted heart Anxiety Active Diagnosis 11/23/2016 [facility] Diagnostic Cerebrovascular Active Diagnosis 11/23/2016 Fam jase accident (CVA) Diagn ostic with involvement of left side of body Body mass index Active Diagnosis 10/28/2016 Fam jase (BMI) 22.0-22.9, [facility] gnostic adult NON-ST ELEVATION Active [facility] (NSTEMI) MYOCARDIAL INF CEREBRAL Active [facility] st INFARCTION, UNSPECIFIED TRANSIENT CEREBRAL Active [facility] ISCHEMIC ATTACK, UNSP Medications Medication Details Route Status Patient Ordering Order Source Instructions Provider Date metoprolol Notes: (Same Inactive extended as: Toprol 2018 [facility] release XL) May split tab, but do not crush. amLODIPine 5 mg 5 mg = 1 tab, Active oral tablet PO, BID, # 60 [facility] tab, 0 Refill(s), Pharmacy: [facility] [id number] atorvastatin 20 20 mg = 1 Active mg oral tablet tab, PO, 2019 [facility] Bedtime, # 30 tab, 0 Refill(s), Pharmacy: [facility] [id number] lisinopril 5 mg 5 mg = 1 tab, Active oral tablet PO, Daily, # [address] 30 tab, 0 Refill(s), Pharmacy: [facility] [id number] metoprolol 50 50 mg = 1 Active mg oral tablet, tab, PO, BID, 2019 [facility] extended # 60 tab, 0 release Refill(s), Pharmacy: [facility] [id number] apixaban 5 mg 5 mg = 1 tab, Active oral tablet PO, Q12H, # 2019 [facility] 60 tab, 0 Refill(s), Pharmacy: [facility] [id number] Eliquis Notes: Same Inactive as: Eliquis 2019 [facility] metoprolol Notes: (Same Inactive extended as: Toprol 2019 [facility] release XL) May split tab, but do not crush. Saline Flush Notes: (Same No Longer 0.9% as: BD Active 2018 [facility] Posiflush) Aspirin 325 MG Notes: Take No Longer Oral Tablet with food. Active 2018 [facility] clopidogrel Notes: (Same No Longer As: Plavix) Active 2018 [facility] metoprolol Notes: (Same Inactive extended as: Toprol 2019 [facility] release XL) Do Not Crush Lisinopril Notes: (Same No Longer as: Prinivil, Active 2018 [facility] Zestril) Aspirin Notes: Do not No Longer crush or Active 2018 [facility] chew. (Same As: Ecotrin) Saline Flush Notes: (Same No Longer 0.9% as: BD Active 2018 [facility] Posiflush) atorvastatin Notes: (Same No Longer As: Lipitor) Active 2018 [facility] Saline Flush Notes: (Same No Longer 0.9% as: BD Active 2018 [facility] Posiflush) Enoxaparin 59.091 mg, Inactive Route: SUB-Q, 2018 [facility] [id number], Dosing Weight 59.091, kg, Start date: 10/11/18 19:00:00 TREND INVESTIGATOR, Duration: 30 day, Stop date: 11/10/18 7:00:00 TREND INVESTIGATOR Acetaminophen Notes: (Same No Longer 325 MG / as: [place] Active 2018 [facility] Hydrocodone 325/5) Do Bitartrate 5 MG not exceed Oral Tablet 4gm/day of acetaminophen . Ondansetron Notes: (Same No Longer as: Zofran) Active 2018 [facility] Saline Flush Notes: (Same No Longer 0.9% as: BD Active 2018 [facility] Posiflush) Aspirin 81 mg, Daily, Active 0 Refill(s) 2018 [facility] Atenolol 25 MG 25 mg = 1 No Longer Oral Tablet tab, PO, Active 2018 [facility] Daily, # 30 tab, 0 Refill(s) metoprolol Notes: (Same Inactive tartrate as: 2018 [facility] Lopressor) Amlodipine Notes: (Same No Longer as: Norvasc) Active 2018 [facility] Aspirin 325 MG Notes: Take Inactive Oral Tablet with food. 2018 [facility] Metoprolol Notes: (Same No Longer as: Active 2018 [facility] Lopressor) Push over 2 minutes Nitroglycerin Notes: (Same No Longer 0.4 MG as:Nitroquick Active 2018 [facility] Sublingual , Nitrostat) Tablet "Do Not Crush" Sublingual tablet Hydralazine Notes: (Same No Longer Hydrochloride as: Active 2018 [facility] 25 MG Oral Apresoline) Tablet May interfere w/enteral feedings Take With Food. Labetalol Notes: (Same No Longer as: Active 2018 [facility] Normodyne, Trandate) Push over 2 minutes Give bolus over 2-3 minutes. Labetalol 20 mg, Route: Inactive IVP, Drug 2018 [facility] form: INJ, ONCE, Dosing Weight 59.091, kg, Priority: STAT, Start date: 10/11/18 13:46:00 TREND INVESTIGATOR, Stop date: 10/11/18 13:46:00 TREND INVESTIGATOR Acetaminophen 1 tab, PO, Inactive 300 MG / Q6H, PRN 2017 [facility] Codeine Pain, # 15 Phosphate 30 MG tab, 0 Oral Tablet Refill(s) [Tylenol with Codeine #3] Acetaminophen 1 tab, Route: Inactive 325 MG / PO, Drug 2017 [facility] Hydrocodone Form: TAB, Bitartrate 5 MG Dosing Weight Oral Tablet 61.364, kg, [Jupiter 5/325] ONCE, STAT, Start date: 06/24/18 10:02:00 CDT, Stop date: 06/24/18 10:02:00 CDT Lexapro 1 tablets Orally Active 5 MG Orally Nathani Once a day 2017 [facility] atorvastatin Notes: (Same No Longer as: Lipitor) Active 2016 [facility] clopidogrel Notes: (Same No Longer As: Plavix) Active 2016 [facility] Saline Flush Notes: (Same No Longer 0.9% as: BD Active 2016 [facility] Posiflush) Aspirin 325 MG Notes: (Do No Longer Enteric Coated Not Crush) Active 2016 [facility] Tablet Do not crush or chew. Sodium Chloride 100 mL, 100 No Longer 0.154 MEQ/ML ml/hr, Infuse Active 2016 [facility] Injectable Over: 1 hr, Solution Route: IV, 100, Drug form: INJ, ONCE, Priority: STAT, Dosing Weight 59.091 kg, Start date: 09/21/16 23:10:00 TREND INVESTIGATOR, Duration: 1 doses or times, Stop date: 09/21/16 23:10:00 TREND INVESTIGATOR Enoxaparin Notes: (Same No Longer as: Lovenox) Active 2016 [facility] Saline Flush Notes: (Same No Longer 0.9% as: BD Active 2016 [facility] Posiflush) Docusate Sodium Notes: (Same No Longer H 100 MG Oral as: Colace) Active 2016 [facility] t Capsule (Do Not [Colace] Crush) Acetaminophen Notes: Same No Longer 325 MG / as [place] Active 2016 [facility] Hydrocodone 325-7.5mg Bitartrate 7.5 Do not exceed MG Oral Tablet 4gm/day of [Jupiter 7.5/325] acetaminophen . Morphine Notes: (Same No Longer as:MORPhine Active 2016 [facility] Sulfate) GI cocktail Notes: G.I. No Longer Cocktail = Active 2016 [facility] antacid with simethicone 22.5 mL - lidocaine viscous 7.5 mL Protonix Notes: Tablet No Longer should not be Active 2016 [facility] chewed or crushed. (Same as: Protonix) Hydralazine Notes: (Same No Longer as: Active 2016 [facility] Apresoline) Push over 5 minutes Zofran Notes: (Same No Longer as: Zofran) Active 2016 [facility] MEDICATION WASTE Product Size: 4 mg Product Wasted: ___ mg Restoril Notes: (Same No Longer As: Restoril) Active 2016 [facility] tramadol Notes: Not to No Longer hydrochloride exceed Active 2016 [facility] 50 MG Oral 400mg/day. Tablet (Same As: Ultram) Acetaminophen Notes: Do not No Longer exceed [address] [facility] gm/day. (Same as: Tylenol) Clonidine Notes: (Same No Longer Hydrochloride As: Catapres) Active 2016 [facility] 0.1 MG Oral Tablet Aspirin Notes: Take Inactive with food. 2016 [facility] Aspirin 325 mg, Inactive Route: PO, 2016 [facility] Drug form: TAB, ONCE, Dosing Weight 59.091, kg, Priority: STAT, Start date: 09/21/16 17:20:00 TREND INVESTIGATOR, Stop date: 09/21/16 17:20:00 TREND INVESTIGATOR Saline Flush Notes: (Same Inactive 0.9% as: BD 2016 [facility] Posiflush) Amlodipine Notes: (Same Inactive as: Norvasc) 2016 [facility] metoprolol 25 mg = 1 Active [...] oral tablet PO, BID, # 60 2016 [facility] tab, 0 Refill(s) clopidogrel Notes: (Same Inactive As: Plavix) 2016 [facility] Lovenox Notes: (Same No Longer as: Lovenox) Active 2016 [facility] Amlodipine Notes: (Same No Longer as: Norvasc) Active 2016 [facility] Ondansetron 4 mg, Route: Inactive IVP, Q8H, 2016 [facility] Dosing Weight 59.318, kg, PRN Nausea & Vomiting, Start date: 09/17/16 15:48:00 TREND INVESTIGATOR, Duration: 30 day, Stop date: 10/17/16 15:47:00 TREND INVESTIGATOR Sodium Chloride 750 mL, Rate: No Longer 0.154 MEQ/ML 75 ml/hr, Active 2016 [facility] Injectable Infuse over: Solution 10 hr, Route: IV, Dosing Weight 59.318 kg, Total Volume: 750, Start date: 09/17/16 15:48:00 TREND INVESTIGATOR, Duration: 10 hr, Stop date: 09/18/16 1:47:00 TREND INVESTIGATOR Acetaminophen Notes: Do not No Longer exceed [address] [facility] gm/day. (Same as: Tylenol) acetaminophen-c Notes: Do not No Longer odeine #[address] [facility] 4gm/day of acetaminophen . (Same as: Tylenol with Codeine # 3) metoprolol Notes: (Same No Longer tartrate as: Active 2016 [facility] Lopressor) Lisinopril Notes: (Same No Longer as: Prinivil, Active 2016 [facility] Zestril) Saline Flush Notes: (Same No Longer 0.9% as: BD Active 2016 [facility] Posiflush) Aspirin 325 MG Notes: (Do No Longer Enteric Coated Not Crush) Active 2016 [facility] Tablet Do not crush or chew. Sodium Chloride 250 mL, 250 Inactive 0.154 MEQ/ML ml/hr, Infuse 2016 [facility] Injectable Over: 1 hr, Solution Route: IV, 250, Drug form: INJ, ONCALL, Priority: Routine, Dosing Weight 59.318 kg, Start date: 09/17/16 8:00:00 TREND INVESTIGATOR, Duration: 1 doses or times, Stop date: 10/17/16 0:00:00 TREND INVESTIGATOR Sodium Chloride 750 mL, Rate: No Longer 0.154 MEQ/ML 75 ml/hr, Active 2016 [facility] Injectable Infuse over: Solution 10 hr, Route: IV, Dosing Weight 59.318 kg, Total Volume: 750, Start date: 09/17/16 7:52:00 TREND INVESTIGATOR, Duration: 24 hr, Stop date: 09/18/16 7:51:00 TREND INVESTIGATOR Lipitor Notes: (Same No Longer as: Lipitor) Active 2016 [facility] amoxicillin 875 875 mg = 1 No Longer mg oral tablet tab, PO, Active 2016 [facility] Q12H, 0 Refill(s) Saline Flush Notes: (Same No Longer 0.9% as: BD Active 2016 [facility] Posiflush) Morphine Notes: (Same No Longer as:MORPhine Active 2016 [facility] Sulfate) Protonix Notes: Tablet No Longer should not be Active 2016 [facility] chewed or crushed. (Same as: Protonix) Hydralazine Notes: (Same No Longer as: Active 2016 [facility] Apresoline) Push over 5 minutes Lopressor Notes: (Same No Longer as: Active 2016 [facility] Lopressor) Push over 2 minutes GI cocktail Notes: G.I. No Longer Cocktail = Active 2016 [facility] antacid with simethicone 22.5 mL - lidocaine viscous 7.5 mL Acetaminophen Notes: Do not No Longer exceed [address] [facility] gm/day. (Same as: Tylenol) Zofran Notes: (Same No Longer as: Zofran) Active 2016 [facility] MEDICATION WASTE Product Size: 4 mg Product Wasted: ___ mg Docusate Sodium Notes: (Same No Longer H 100 MG Oral as: Colace) Active 2016 [facility] Capsule (Do Not [Colace] Crush) Acetaminophen Notes: Same No Longer 325 MG / as [place] Active 2016 [facility] Hydrocodone 325-7.5mg Bitartrate 7.5 Do not exceed MG Oral Tablet 4gm/day of [Jupiter 7.5/325] acetaminophen . Nitroglycerin Notes: (Same No Longer as:Nitroquick Active 2016 [facility] , Nitrostat) "Do Not Crush" Sublingual tablet Labetalol Notes: (Same No Longer as: Active 2016 [facility] Normodyne, Trandate) Push over 2 minutes Give bolus over 2-3 minutes. Heparin - one 3,600 unit, No Longer time bolus for 3.6 mL, Active 2016 [facility] ACS Route: IVP, Drug form: INJ, ONCE, Dosing Weight 61.364, kg, Priority: STAT, Start date: 09/16/16 23:28:00 TREND INVESTIGATOR, Stop date: 09/16/16 23:28:00 TREND INVESTIGATOR Heparin 60 Route: IVP, No Longer unit/kg Bolus PRN, 3,600 Active 2016 [facility] (Heparin Dosing unit, 3.6 mL, Weight) Drug form: INJ, PRN, Heparin Protocol, Start date: 09/16/16 23:28:00 TREND INVESTIGATOR Stop date: 10/16/16 23:27:00 TREND INVESTIGATOR, 30 day Heparin 30 Route: IVP, No Longer unit/kg Bolus PRN, 1,800 Active 2016 [facility] (Heparin Dosing unit, 1.8 mL, Weight) Drug form: INJ, PRN, Heparin Protocol, Start date: 09/16/16 23:28:00 TREND INVESTIGATOR Stop date: 10/16/16 23:27:00 TREND INVESTIGATOR, 30 day heparin 500 mL, Rate: No Longer additive 25,000 14.55 ml/hr, Active 2016 [facility] unit [12 Infuse over: unit/kg/hr] + 34.4 hr, Premix Diluent Route: IV, Dextrose 5% 500 Dosing Weight mL 60.64 kg, Total Volume: 500 mL, Start date: 09/16/16 23:28:00 TREND INVESTIGATOR, Duration: 30 day, Stop date: 10/16/16 23:27:00 TREND INVESTIGATOR Aspirin Notes: Take No Longer with food. Active 2016 [facility] Saline Flush Notes: (Same No Longer 0.9% as: BD Active 2016 [facility] Posiflush) Amlodipine 1 tablet Orally Active [...] 10/13 [facility] ELECTROLYT eGFR 68 10/13 [facility] Comment: [facility] eGFR is calculated using the CKD-EPI [...] - 02 [facility] 75.0 /2018 [facility] HEMATOLOGY Lymphocytes 15.9 20.0 - 10/13 [facility] 40.0 /2018 [facility] HEMATOLOGY Monocytes 10.2 2.0 - 12.0 / /2018 [facility] HEMATOLOGY Eosinophils 2.8 0.0 - 4.0 / /2018 [facility] HEMATOLOGY Basophils 0.5 0.0 - 1.0 10/13 [facility] HEMATOLOGY Neutrophils 5.3 1.5 - 8.1 10/13 [facility] # /2018 [facility] HEMATOLOGY Lymphocytes 1.2 1.0 - 5.5 10/13 [facility] # /2018 [facility] HEMATOLOGY Monocytes # 0.8 0.0 - 0.8 10/13 [facility] HEMATOLOGY Eosinophils 0.2 0.0 - 0.5 10/13 MH # /2018 [facility] HEMATOLOGY WBC 7.5 3.7 - 10.4 10/13 /2018 [facility] HEMATOLOGY RBC 4.07 4.20 - 10/13 5.40 /2018 [facility] HEMATOLOGY Hgb 12.9 12.0 - 10/13 16.0 /2018 [facility] HEMATOLOGY Hct 38.8 36.0 - 10/13 48.0 /2018 [facility] HEMATOLOGY MCV 95.4 80.0 - 10/[address] [facility] HEMATOLOGY MCH 31.7 27.0 - 02 MH 31.0 /2018 [facility] HEMATOLOGY MCHC 33.2 32.0 - 10/13 36.0 /2018 [facility] HEMATOLOGY RDW 14.6 11.5 - 10/[address] [facility] HEMATOLOGY Platelet 249 133 - 450 10/13 [facility] HEMATOLOGY MPV 8.0 7.4 - 10.4 10/13 [facility] CEFUROXIME Culture: >100,000 CFU/mL Escherichia coli 10/12 [facility] :[facility]:PT:I Urine 10,000 - 50,000 CFU/mL Skin Melly /2018 [facility] SOLATE:ORD QN:SERGIO CEFUROXIME Escherichia Escherichi 10/12 :[facility]:PT:I coli a coli /2018 [facility] SOLATE:ORD QN:SERGIO URINE AND UA Color Yellow Yellow 10/12 STOOL *NA* [facility] (10/12/18 9:49 AM) URINE AND UA Turbidity Slight Clear 10/12 STOOL *ABN* [facility] (10/12/18 9:49 AM) URINE AND UA Spec Grav 1.016 <=1.030 10/12 STO[facility] /2018 [facility] URINE AND UA pH 6.0 5.0 - 8.0 10/12 [facility] URINE AND UA Protein Negative Negative 10/12 [facility] (10/12/18 9:49 AM) /[address] URINE AND UA Glucose Negative Negative 10/12 STOOL *NA [facility] (10/12/18 9:49 AM) URINE AND UA Ketones Negative Negative 10/12 STOOL * [facility] (10/12/18 9:49 AM) URINE AND UA Bili Negative Negative 10/12 STOOL *NA [facility] (10/12/18 9:49 AM) URINE AND UA Blood Negative Negative 10/12 [facility] (10/12/18 9:49 AM) [facility] URINE AND UA <=1.0 0.1 - 1.0 10/12 ST[facility]OL Urobilinogen mg/dL [facility] URINE AND UA Nitrite Positive Negative 10/12 STOOL *ABN [facility] (10/12/18 9:49 AM) URINE AND UA Leuk Est Large Negative 10/12 STOOL *ABN* [facility] (10/12/18 9:49 AM) URINE AND UA Sq Epi Occasional Few /LPF 10/12 [facility] /LPF /2018 [facility] URINE AND UA WBC 15 0 - 5 10/12 [facility] URINE AND UA RBC 3 0 - 2 10/[address] [facility] URINE AND UA Bacteria Occasional None Seen 10/12 [facility] /HPF /HPF [facility] URINE AND UA Mucus Few /LPF None Seen 10/12 STOOL /LPF /2018 [facility] CHEM PANEL Creatinine 0.80 0.50 - 10/12 Lvl 1.40 /2018 [facility] CHEM PANEL Glucose Lvl 91 70 - 99 02/ [facility] CHEM PANEL BUN 15 7 - 22 / [facility] CHEM PANEL eGFR 70 / Result Comment: [facility] eGFR is calculated using the CKD-EPI [...] 142 135 - 145 10/12 [facility] CHEM PANEL Potassium 3.9 3.5 - [...] 70 - 99 / MH [facility] ELECTROLYT BUN 15 7 - 22 [...] 8.5 - 10.5 10/[address] [facility] ELECTROLYT eGFR 70 10/12 Result Comment: The [facility] eGFR is calculated using the CKD-EPI [...] 6.2 3.7 - 10.4 10/12 [facility] HEMATOLOGY RBC 3.80 4.20 - 10/12 MH 5.40 /2018 [facility] HEMATOLOGY Hgb 12.0 12.0 - 10/[address] [facility] HEMATOLOGY Hct 36.1 36.0 - 10/[address] [facility] HEMATOLOGY MCV 94.9 80.0 - 10/12 98.0 /2018 [facility] HEMATOLOGY MCH 31.7 27.0 - 10/12 31.0 /2018 [facility] HEMATOLOGY MCHC 33.4 32.0 - 10/12 36.0 /2018 [facility] HEMATOLOGY RDW 14.2 11.5 - 02 MH 14.5 /2019 [facility] HEMATOLOGY Platelet 233 133 - 450 10/12 [facility] HEMATOLOGY MPV 8.1 7.4 - 10.4 10/12 [facility] HEMATOLOGY Segs 65.0 45.0 - 02/ MH 75.0 /2019 [facility] HEMATOLOGY Lymphocytes 20.1 20.0 - [address] [facility] HEMATOLOGY Monocytes 11.0 2.0 - 12.0 10/12 [facility] HEMATOLOGY Eosinophils 3.1 0.0 - 4.0 10/12 [facility] HEMATOLOGY Basophils 0.8 0.0 - 1.0 10/12 [facility] HEMATOLOGY Neutrophils 4.0 1.5 - 8.1 02/ MH # /2018 [facility] HEMATOLOGY Lymphocytes 1.3 1.0 - 5.5 / MH # /2018 [facility] HEMATOLOGY Monocytes # 0.7 0.0 - 0.8 / MH /2018 [facility] HEMATOLOGY Eosinophils 0.2 0.0 - 0.5 / MH # /2018 [facility] LIPIDS Trig 76 <=149 /03 [facility] mg/dL /2018 [facility] LIPIDS Chol 134 <=199 / MH mg/dL /2018 [facility] LIPIDS HDL 47 >=61 mg/dL 10/12 [facility] /2018 [facility] LIPIDS LDL 72 <=99 mg/dL 10/12 [facility] (Calculated) [facility] LIPIDS VLDL 15 10/12 /2018 [facility] LIPIDS CHD Risk 2.85 3.90 - 10/[address] [facility] SPECIAL Hgb A1C 5.9 <=5.6 % 10/12 CHEMISTRY /2018 [facility] CARDIAC Troponin-I <0.02 0.00 - 10/[address] [facility] LIPIDS CHD Risk 2.79 3.90 - 10/12 5.80 [facility] LIPIDS Trig 71 <=149 /03 mg/dL /2018 [facility] LIPIDS Chol 148 <=199 / mg/dL /2018 [facility] LIPIDS HDL 53 >=61 mg/dL 10/12 /2018 [facility] LIPIDS LDL 81 <=99 mg/dL 10/12 [facility] (Calculated) [facility] LIPIDS VLDL 14 10/12 /2018 [facility] SPECIAL Hgb A1C 5.8 <=5.6 % 10/12 CHEMISTRY /2018 [facility] CARDIAC Troponin-I <0.02 0.00 - [address] [facility] CHEM PANEL Calcium Lvl 9.2 8.5 - 10.5 10/12 /2018 [facility] CHEM PANEL Magnesium 1.8 1.8 - 2.4 / Lvl /2018 [facility] CHEM PANEL Phosphorus 2.9 2.5 - 4.5 10/12 /2018 [facility] HEMATOLOGY PT 13.7 12.0 - 02/ MH 14.7 /2018 [facility] HEMATOLOGY PTT 30.3 22.9 - 02/ 35.8 /2019 [facility] HEMATOLOGY INR 1.07 0.85 - 02/ 1.17 [facility] URINE AND UA Color Yellow Yellow 10/11 STOOL *NA* /2018 [facility] (10/11/18 1:58 PM) URINE AND UA Turbidity Slight Clear 10/11 STOOL *ABN* [facility] (10/11/18 1:58 PM) URINE AND UA Spec Grav 1.009 <=1.030 10/[address] [facility] URINE AND UA pH 7.0 5.0 - 8.0 10/[address] [facility] URINE AND UA Protein Negative Negative 10/11 [facility] (10/11/18 1:58 PM) /[address] URINE AND UA Glucose Negative Negative 10/11 STOOL *NA [facility] (10/11/18 1:58 PM) URINE AND UA Ketones Negative Negative 10/11 STOOL *NA [facility] (10/11/18 1:58 PM) URINE AND UA Bili Negative Negative 10/11 STOOL *NA [facility] (10/11/18 1:58 PM) URINE AND UA Blood Small Negative 10/11 STOOL * [facility] (10/11/18 1:58 PM) URINE AND UA <=1.0 0.1 - 1.0 10/11 [facility] Urobilinogen mg/dL /2018 [facility] URINE AND UA Nitrite Positive Negative 10/11 STOOL *ABN [facility] (10/11/18 1:58 PM) URINE AND UA Leuk Est Trace Negative 10/11 STOOL *ABN [facility] (10/11/18 1:58 PM) URINE AND UA Sq Epi Occasional Few /LPF 10/11 STOOL /LPF [facility] URINE AND UA WBC 1 0 - 5 10/11 [facility] URINE AND UA RBC 3 0 - 2 10/[address] [facility] URINE AND UA Bacteria Occasional None Seen 10/11 STOOL /HPF /HPF [facility] URINE AND UA Mucus Few /LPF None Seen 10/11 STOOL /LPF [facility] CARDIAC Troponin-I <0.02 0.00 - 10/[address] [facility] CARDIAC BNP 364 <=100 10/11 ENZYMES pg/mL [facility] CHEM PANEL Glucose Lvl 94 70 - 99 10/11 [facility] CHEM PANEL BUN 14 7 - 22 10/11 [facility] CHEM PANEL Creatinine 0.97 0.50 - 10/11 Lvl 1.40 /2018 [facility] CHEM PANEL Sodium Lvl 138 135 [...] 56 10/11 Result Comment: The [facility] eGFR is calculated using the CKD-EPI [...] 3.7 - 10.4 02/ /2019 [facility] HEMATOLOGY RBC 4.28 4.20 - 02/ MH 5.40 /2019 [facility] HEMATOLOGY Hgb 13.4 12.0 - 02/ MH 16.0 /2018 [facility] HEMATOLOGY Hct 40.9 36.0 - 02/ MH 48.0 /2018 [facility] HEMATOLOGY MCV 95.6 80.0 - 02/ MH 98.0 /2019 [facility] HEMATOLOGY MCH 31.3 27.0 - 02/ MH 31.0 /2018 [facility] HEMATOLOGY MCHC 32.7 32.0 - 02/ MH 36.0 /2018 [facility] HEMATOLOGY RDW 14.1 11.5 - 02/ MH 14.5 /2019 [facility] HEMATOLOGY Platelet 299 133 - 450 02/ /2018 [facility] HEMATOLOGY MPV 8.6 7.4 - 10.4 [...] 71 09/23 Result Comment: [facility] eGFR is calculated using the CKD-EPI [...] 145 135 - 145 09/23 [facility] ELECTROLYT BUN 10 7 - 22 09/23 [facility] ELECTROLYT Glucose Lvl 89 70 - 99 09/23 [facility] ELECTROLYT Creatinine 0.81 0.50 - 09/[address] [facility] ELECTROLYT Calcium Lvl 8.9 8.5 - 10.5 09/23 [facility] ELECTROLYT Potassium 3.9 3.5 - 5.1 09/[address] [facility] ELECTROLYT Chloride Lvl 107 95 - 109 09/23 [facility] ELECTROLYT CO2 32 24 - 32 09/23 [facility] HEMATOLOGY Platelet 272 133 - 450 09/23 [facility] HEMATOLOGY MPV 8.2 7.4 - 10.4 09/23 [facility] HEMATOLOGY RDW 13.1 11.5 - 09/[address] [facility] HEMATOLOGY MCH 32.2 27.0 - 09/[address] [facility] HEMATOLOGY MCHC 33.9 32.0 - 09/[address] [facility] HEMATOLOGY MCV 95.1 80.0 - 09/[address] [facility] HEMATOLOGY Hgb 11.7 12.0 - 09/[address] [facility] HEMATOLOGY Hct 34.5 36.0 - 09/[address] [facility] HEMATOLOGY WBC 6.1 3.7 - 10.4 [...] 3.90 - 09/22 5.80 /2016 [facility] LIPIDS Trig 44 <=149 09/22 mg/dL [facility] LIPIDS Chol 140 <=199 09/22 mg/dL [facility] LIPIDS HDL 55 >=61 mg/dL 09/22 [facility] LIPIDS LDL 76 <=99 mg/dL 09/22 (Calculated) [facility] LIPIDS VLDL 9 09/22 [facility] SPECIAL Hgb A1C 5.3 <=5.6 % 09/[address] [facility] URINE AND UA Mucus Few /LPF None Seen 09/22 STOOL /LPF [facility] URINE AND UA RBC 0-2 /HPF 0 - 2 09/22 [facility] URINE AND UA WBC 3-5 /HPF None Seen 09/22 STOOL /HPF [facility] URINE AND UA Bacteria Few /HPF None Seen 09/22 STOOL /HPF [facility] URINE AND UA Sq Epi Few /LPF Few /LPF 09/22 [facility] URINE AND UA Leuk Est Small Negative 09/22 STOOL *ABN* /2016 [facility] (09/21/16 11:00 PM) URINE AND UA Nitrite Negative Negative 09/22 STOOL (09/21/16 11:00 PM) /2016 [place] URINE AND UA Blood Trace Negative 09/22 STOOL *ABN* [facility] (09/21/16 11:00 PM) URINE AND UA 0.2 0.1 - 1.0 09/22 STOOL Urobilinogen /2016 [facility] URINE AND UA Protein Negative Negative 09/22 [facility] (09/21/16 11:00 PM) [place] URINE AND UA Glucose Negative Negative 09/22 [facility] (09/21/16 11:00 PM) [place] URINE AND UA Bili Negative Negative 09/22 STOOL *NA* [facility] (09/21/16 11:00 PM) URINE AND UA Ketones Negative Negative 09/22 STOOL *NA* [facility] (09/21/16 11:00 PM) URINE AND UA Turbidity Clear Clear 09/22 [facility] (09/21/16 11:00 PM) [place] URINE AND UA pH 6.0 5.0 - 8.0 09/22 [facility] [place] URINE AND UA Spec Grav 1.010 <=1.030 09/22 [facility] [place] URINE AND UA Color Yellow Yellow 09/22 STOOL *NA* [facility] (09/21/16 11:00 PM) URINE AND UA pH 6.0 5.0 - 8.0 09/21 [facility] URINE AND UA Spec Grav 1.015 <=1.030 09/21 [facility] URINE AND UA Protein Negative Negative 09/21 [facility] (09/21/16 5:20 PM) [place] URINE AND UA Leuk Est Trace Negative 09/21 STOOL *ABN* [facility] (09/21/16 5:20 PM) URINE AND UA Nitrite Negative Negative 09/21 [facility] (09/21/16 5:20 PM) [place] URINE AND UA 0.2 0.1 - 1.0 09/21 [facility] Urobilinogen [place] URINE AND UA Blood Trace Negative 09/21 STOOL *ABN* [facility] (09/21/16 5:20 PM) URINE AND UA Bili Negative Negative 09/21 STOOL *NA* [facility] (09/21/16 5:20 PM) URINE AND UA Ketones Negative Negative 09/21 STOOL *NA* [facility] (09/21/16 5:20 PM) URINE AND UA [...] /LPF 09/21 STOOL /LPF /2016 [facility] URINE AND UA WBC 0-2 /HPF None Seen 09/21 STOOL /HPF [facility] CARDIAC CK MB 2.8 0.5 - 3.6 09/[address] [facility] CARDIAC Total CK 162 12 - 191 09/[address] [facility] CARDIAC Troponin-I 0.91 0.00 - 09/21 Result ENZYMES 0.40 Comment: [facility] Critical Result(s) called to Radha Urbina at 09/21/2016 16:20 by KENNEY. Read back OK. CARDIAC CK MB Index 1.7 0.0 - 2.5 09/[address] [facility] CHEM PANEL eGFR 81 09/21 Result Comment: [facility] eGFR is calculated using the CKD-EPI [...] 4.03 4.20 - 09/[address] [facility] HEMATOLOGY Hgb 13.0 12.0 - 09/21 16.0 [facility] HEMATOLOGY Hct 38.3 36.0 - 09/21 48.0 /2016 [facility] HEMATOLOGY MCH 32.2 27.0 - 09/21 31.0 [facility] HEMATOLOGY MCV 94.9 80.0 - 09/21 MH 98.0 /2016 [facility] HEMATOLOGY MCHC 33.9 32.0 - 09/21 MH 36.0 /2017 [facility] HEMATOLOGY RDW 13.2 11.5 - 09/21 MH 14.5 /2016 [facility] HEMATOLOGY PTT 27.9 22.9 - 09/21 MH 35.8 /2016 [facility] HEMATOLOGY Segs 74.4 45.0 - 09/21 MH 75.0 /2016 [facility] HEMATOLOGY Lymphocytes 1.1 1.0 - 5.5 09/21 MH # /2017 [facility] HEMATOLOGY Monocytes # 0.7 0.0 - 0.8 09/21 [facility] HEMATOLOGY Eosinophils 2.1 0.0 - 4.0 09/21 [facility] HEMATOLOGY Segs-Bands # 5.6 1.5 - [...] 82 09/18 Result Comment: [facility] eGFR is calculated using the CKD-EPI [...] - 09/18 MH 98.0 /2017 [facility] HEMATOLOGY RBC 3.63 4.20 - 09/18 MH 5.40 /2016 [facility] HEMATOLOGY Hgb 11.7 12.0 - 09/18 MH 16.0 /2016 [facility] HEMATOLOGY Hct 34.5 36.0 - 09/18 MH 48.0 /2016 [facility] HEMATOLOGY WBC 6.8 3.7 - 10.4 09/18 /2016 [facility] HEMATOLOGY MPV 8.2 7.4 - 10.4 09/18 /2016 [facility] HEMATOLOGY RDW 13.3 11.5 - 09/18 MH 14.5 /2017 [facility] HEMATOLOGY Platelet 241 133 - 450 09/18 MH /2016 [facility] HEMATOLOGY MCH 32.3 27.0 - 09/18 MH 31.0 /2017 [facility] HEMATOLOGY MCHC 34.0 32.0 - 09/18 MH 36.0 /2017 [facility] HEMATOLOGY POC 327 09/17 Activated /2016 [facility] Clotting Time CARDIAC CK MB 36.8 0.5 - 3.6 09/17 ENZYMES /2016 [facility] CARDIAC Total CK 341 12 - 191 09/17 ENZYMES /2017 [facility] CARDIAC CK MB Index 10.8 0.0 - 2.5 09/17 ENZYMES /2017 [facility] CARDIAC Troponin-I 15.90 0.00 - 09/17 Result ENZYMES 0.40 2017 Comment: [facility] Critical Result(s) called to WELLINGTON DUMONT at 09/17/2016 11:46 by HN. Read back OK. HEMATOLOGY PTT 67.1 22.9 - 09/17 MH 35.8 /2017 [facility] SPECIAL Hgb A1C 5.3 <=5.6 % 09/17 CHEMISTRY /2016 [facility] CARDIAC Total CK 311 12 - 191 09/17 ENZYMES /2017 [facility] CARDIAC Troponin-I 12.10 0.00 - 09/17 Result ENZYMES 0.40 /2017 Comment: [facility] Critical Result(s) called to Steff Adames at 09/17/2016 06:20 by RC. Read back OK. CARDIAC CK MB Index 12.7 0.0 - 2.5 09/17 ENZYMES /2016 [facility] CARDIAC CK MB 39.4 0.5 - 3.6 09/17 ENZYMES /2016 [facility] LIPIDS VLDL 10 09/17 /2016 [facility] LIPIDS Trig 52 <=149 09/17 mg/dL /2016 [facility] LIPIDS HDL 69 >=61 mg/dL 09/17 [facility] LIPIDS CHD Risk 2.54 3.90 - 09/17 MH 5.80 /2016 [facility] LIPIDS Chol 175 <=199 09/17 mg/dL /2016 [facility] LIPIDS LDL 96 <=99 mg/dL 09/17 MH (Calculated) /2016 [facility] HEMATOLOGY PT 13.5 12.0 - 09/17 MH 14.7 /2016 [facility] HEMATOLOGY INR 1.01 0.85 - 09/17 MH 1.17 /2016 [facility] HEMATOLOGY WBC 7.5 3.7 - 10.4 09/17 /2016 [facility] HEMATOLOGY RBC 3.85 4.20 - 09/17 MH 5.40 /2016 [facility] HEMATOLOGY Hgb 12.3 12.0 - 09/17 MH 16.0 /2016 [facility] HEMATOLOGY MCHC 33.6 32.0 - 09/17 MH 36.0 /2016 [facility] HEMATOLOGY RDW 13.0 11.5 - 09/17 MH 14.5 /2016 [facility] HEMATOLOGY Hct 36.6 36.0 - 09/17 MH 48.0 /2017 [facility] HEMATOLOGY MCV 95.3 80.0 - 09/17 MH 98.0 /2016 [facility] HEMATOLOGY MCH 32.0 27.0 - 09/17 MH 31.0 /2016 [facility] HEMATOLOGY Platelet 261 133 - 450 09/17 MH /2016 [facility] HEMATOLOGY MPV 8.0 7.4 - 10.4 09/17 /2016 [facility] HEMATOLOGY PTT 74.1 22.9 - 09/17 MH 35.8 /2016 [facility] HEMATOLOGY Eosinophils 2.2 0.0 - 4.0 09/17 /2016 [facility] HEMATOLOGY Basophils 0.8 0.0 - 1.0 09/17 /2016 [facility] HEMATOLOGY Lymphocytes 1.4 1.0 - 5.5 09/17 MH # /2017 [facility] HEMATOLOGY Monocytes # 0.8 0.0 - 0.8 09/17 MH /2016 [facility] HEMATOLOGY Eosinophils 0.2 0.0 - 0.5 09/17 MH # /2017 [facility] HEMATOLOGY Basophils # 0.1 0.0 - 0.2 09/17 [facility] HEMATOLOGY Segs-Bands # 5.1 1.5 - 8.1 09/17 [facility] HEMATOLOGY Segs 67.8 45.0 - 09/17 MH 75.0 /2017 [facility] HEMATOLOGY Lymphocytes 18.4 20.0 - 09/17 MH 40.0 /2017 [facility] HEMATOLOGY Monocytes 10.8 2.0 - 12.0 09/17 [facility] CARDIAC BNP 268 <=100 09/17 ENZYMES pg/mL /2016 [facility] CARDIAC Troponin-I 0.52 0.00 - 09/17 Result ENZYMES 0.40 Comment: [facility] Critical Result(s) called to [facility] at 09/16/2016 23:26 by RC. Read back OK. CARDIAC CK MB 4.8 0.5 - 3.6 09/17 ENZYMES /2016 [facility] CARDIAC Total CK 107 12 - 191 09/17 ENZYMES /2016 [facility] CARDIAC CK MB Index 4.5 0.0 - 2.5 09/[address] [facility] CHEM PANEL eGFR 58 09/17 Result Comment: [facility] eGFR is calculated using the CKD-EPI [...] 0.9 0.7 - 1.6 09/17 [facility] CHEM PANEL Globulin 3.9 2.7 - [...] - 09/17 MH 48.0 /2016 [facility] HEMATOLOGY Hgb 13.4 12.0 - 09/17 MH 16.0 [facility] HEMATOLOGY RDW 13.3 11.5 - 09/17 MH 14.5 /2016 [facility] HEMATOLOGY MCHC 33.9 32.0 - 09/17 MH 36.0 /2016 [facility] HEMATOLOGY MCH 32.3 27.0 - 09/17 MH 31.0 [facility] HEMATOLOGY MCV 95.2 80.0 - 09/17 MH 98.0 /2016 [facility] HEMATOLOGY INR 0.92 0.85 - 09/17 MH 1.17 /2016 [facility] HEMATOLOGY PT 12.6 12.0 - 09/17 MH 14.7 /2017 [facility] HEMATOLOGY Eosinophils 0.1 0.0 - 0.5 09/17 MH # /2017 [facility] HEMATOLOGY Lymphocytes 0.9 1.0 - 5.5 09/17 MH # /2017 [facility] HEMATOLOGY Segs-Bands # 7.1 1.5 - 8.1 09/17 [facility] HEMATOLOGY Lymphocytes 10.5 20.0 - 09/17 MH 40.0 /2016 [facility] HEMATOLOGY Segs 81.0 45.0 - 09/17 MH 75.0 /2016 [facility] HEMATOLOGY Basophils 0.5 0.0 - 1.0 09/17 [facility] HEMATOLOGY Eosinophils 1.0 0.0 - 4.0 09/17 [facility] HEMATOLOGY Monocytes 7.0 2.0 - 12.0 09/17 [facility] Monocytes # 0.6 0.0 - 0.8 09/17 [facility] Pathology Reports No Data Provided for This Section Diagnostic Reports Report Value Date Source Neck wo contrast MRA Study: Neck wo contrast MRA 10/12/2018 [facility] Age: 77 years y/o Female Clinical Indication: [...] flow-limiting internal carotid stenosis de tected. SL: [id number] Carotid artery Procedure: Carotid Ultrasound. 10/11/2018 M [...] Near occlusion High, low, or Variable undetectable [id number] Brain wo contrast EXAM: MRI BRAIN WITHOUT CONTRAST 10/11/2018 [facility] DATE: 10/11/2018 18:12 TREND INVESTIGATOR INDICATION: - right sided weakness and tingling [...] mild chronic small vessel ischemic change. SL: [id number] Brain wo contrast Patient Name: PROSPER GROSSMAN 10/11/2018 [facility] MRA : 1940; Age: 77 years y/o Female MR: [id number] Study: Brain wo contrast MRA 10/11/2018 18:12 TREND INVESTIGATOR Ordering Physician: Bethany Harvey MD Clinical Indication: - right sided weakness and tingling; Comparison: None Technique: Magnetic resonanc e angiography of the [place] was performed without contrast. 3D [...] distal P1 P2 junction of the left AUT[employer]ATION [employer]S SPECIALIST compatible with known recent infarc t. Small right P-comm is present. Left P-comm is not visualized. There is no aneurysm or vascular malformation. IMPRESSION: 1. Slow flow/occlusion of th e distal P1 P2 junction of the left [employer]IST compatible with known recent infarct. 2. No definite cerebral aneurysm detected. SL: [id number] Brain wo contrast CT EXAM: CT BRAIN WITHOUT CONTRAST 10/11/2018 [facility] DATE: 10/11/2018 12:33 TREND INVESTIGATOR INDICATION: - right sided numbness. ADDITIONAL INFORMATION: [...] may be performed for complete assessment. SL: [id number] Chest 1view DX 1 VIEW CXR. PORTABLE EXAM 1:30 PM 10/11/2018 [facility] HISTORY: Patient's speech is slower than normal according to the family. Previous history of stroke and hypertension. COMPARISON: 06/24/2018 chest x-ray. Stable cardiomegaly. The yazmin gs are clear with normal pulmonary vasculature. No pleural abnormality. Upper mediastinal contours normal. Old healed left clavicular fracture. IMPRESSION: Stable cardiomegaly. No acute process of the [address] END OF IMPRESSION SL: [id number] Chest 2 views DX Clinical Indication: - fall 06/24/2018 [facility] Comparison: 09/21/2016 FINDINGS: The PA and lateral [...] disease. 2. No acute focal infiltrates SL: [id number] Shoulder series DX Exam: Left Shoulder series DX 06/24/2018 [facility] Clinical Indication: - pain, fall; Comparison: None [...] No shoulder joint fractures are identified. SL: [id number] Brain/Neck CTA Patient Name: PROSPER GROSSMAN 09/22/2016 [facility] : 1940; Age: 75 years y/o Female MR: [id number] Study: Brain/Neck CTA 09/21/2016 10:37 PM TREND INVESTIGATOR Ordering Physician: Jaspreet Jones DO Clinical Indication: [...] IMPRESSION: Unremarkable normal CT angio graphy of [place] and intracranial vessels. SL: [id number] Brain w/wo contrast Patient Name: PROSPER GROSSMAN 09/21/2016 [facility] : 1940; Age: 75 years y/o Female MR: [id number] Study: Brain w/wo contrast MRI 09/21/2016 5:36 PM TREND INVESTIGATOR Ordering Physician: Zay Hodge MD Clinical Indication: [...] contrast CT Patient Name: PROSPER GROSSMAN 09/21/2016 [facility] : 1940; Age: 75 years y/o Female MR: [id number] Study: Brain wo contrast CT 09/21/2016 3:38 [...] 1view DX Clinical Indication: Chest pain. 09/16/2016 [facility] Comparison: None FINDINGS: AP view of the [...] Source Temperature Oral (F) 98.2 F 10/13/2018 [facility] heast Heart Rate 76 10/13/2018 [facility] Respitory Rate 16 10/13/2018 [facility] Systolic (mm Hg) 144 10/13/2018 [facility] Diastolic (mm Hg) 76 10/13/[address] [facility] [address] Temperature Oral (F) 98.1 F 10/13/2018 [facility] Heart Rate 70 10/13/2018 [facility] Respitory Rate 16 10/13/2018 [facility] Systolic (mm Hg) 128 10/13/2018 [facility] [facility] Diastolic (mm Hg) 73 10/13/[address] [facility] [address] Temperature Oral (F) 97.8 F 10/13/2018 [facility] Heart Rate 91 10/13/2018 [facility] Respitory Rate 16 10/13/2018 [facility] Systolic (mm Hg) 120 10/13/2018 [place] [facility] Diastolic (mm Hg) 63 10/13/[address] [facility] [address] Height 160.02 cm 10/11/2018 [facility] BMI Calculated 23.08 10/11/2018 [facility] Weight 59.091 10/11/2018 [facility] Respitory Rate 18 06/24/2018 [facility] Systolic (mm Hg) 165 06/24/2018 [facility] [facility] Diastolic (mm Hg) 94 [facility] Resp[facility] Rate 18 06/24/2018 [facility] Systolic (mm Hg) 161 06/24/2018 [place] [facility] Diastolic (mm Hg) 93 06/24/[address] [facility] [address] Respitory Rate 18 06/24/2018 [facility] Systolic (mm Hg) 189 06/24/2018 [place] [facility] Diastolic (mm Hg) 115 06/24/[address] [facility] [address] BMI Calculated 23.96 06/24/2018 [facility] Height [...] [place] Diastolic (mm Hg) 67 09/23/[address] [facility] st Respitory Rate 18 09/23/2016 [facility] Systolic [...] 60.636 09/17/2016 [facility] Weight 61.364 09/17/2016 [facility] BMI Calculated 23.96 09/17/2016 [facility] Encounters Location Location Encounter Encounter Reason Attending ADM DC Stat us Source Details Type Number For Provider Date Date Visit [facility] [id number] [place] 09/17 09/18 Aldair Jones II /2016 [facility] Inpatient [id number] Jaspreet 09/21 09/23 Aldair Jones II /2016 [facility] Family Consult [id number] 09/27 09/27 Fam jase Diagnostic [id number] /2016 [facility] [id number] c Family Consult [id number] 09/27 09/27 Fam jase Diagnostic [id number] /2016 [facility] [id number] c Family Consult [id number] 09/27 09/27 Fam jase Diagnostic [id number] /2016 [facility] [id number] c Family 1 WEEK [id number] 10/04 10/04 Fami ly Diagnostic FOLLOW UP [id number] /2016 [facility] [id number] c Family 1 WEEK [id number] 10/04 10/04 Fami ly Diagnostic FOLLOW UP [id number] /2016 [facility] [id number] c Family 3 WEEKS [id number] 10/25 10/25 Fam jase Diagnostic [id number] /2016 [facility] [id number] c [facility] Emergency [id number] [place] 06/24 06/24 LIZA Liu /2017 [facility] [id number] [place] 10/11 10/14 LIZA Harvey /2018 [facility] Procedures Procedure Code Date Perfomer Comments Source Bilateral breast [id number] [facility] implants Hysterectomy [id number] [facility] Stripping of vein [id number] [place] [facility] Assessment and Plan Assessment and Plan Date Source Extracted from:Title: Progress Note * 10/14/2018 [facility] Author: Curtis Steward MD Date: 10/13/18 Impression and Plan IMPRESSION: 1. 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 [...] and Plan Diagnosis TIA (transient ischemic attack) (BSU78-XS G45.9, Working, Ne dical). Paresthesia of skin (VGB32-BY R20.2, Working, Medical). Unspecified atrial fibrillation (QND00-IZ I48.91, Working, M edical). Course: Improving. Education [...] P atient is a good candidate for prison if needed Extracted from:Title: Hosp Progress Note * 09/23/2016 [facility] Author: Lida Coronel MD Date: 09/23/16 Impression and Plan ASSESSMENT Acute Left Medial Thalamus CVA Diplopia, Slurred Speech, and Facial Droop Anemia Elevated Troponin recent GA Recent NSTEMI with Nonocclusive CAD HTN HLD PLAN: CTA Head pending results PT/OT/ST Neuro Consult Permissive HTN 150-180; will restart BP meds tomorrow ASA/Plavix/Statin DVT PPx: SCD[facility] Speech therapy Extracted from:Title: Vital heart and Vein Progress Note * 0 09/18/2016 [facility] Author: Kin Murray MD Date: 09/18/16 Patient: PROSPER GROSSMAN RN: [id number] Age: 75 years Sex: Female : 1940 [...] (12):GI cocktail, acetaminophen -codeine (acetaminophen-codeine #3), acetaminophen-hydrocodone ([place] 7.5/325 oral tablet), acetaminophen, acetaminophen, docusate (Colace [...] 09/17/16 22:00 enoxaparin (Lovenox) 40 mg SUB-Q [id number] 09/17/16 9:00 lisinopril 20 mg PO Q12H [...] Normal b owel sounds. Integumentary: Warm, Dry, [place]. Neurologic: Alert, Oriented, No focal deficits. Psychiatric: [...] and Tubes: Peripheral catheter: Site: left arm. Sampler Radioactive Waste: At 09/18/2016 08:00, Reveals a Normal sinus [...] pressure was calculated at 37 mmHg. 09/17/16 [facility] 1. Non-ST elevation myocardial infarction. 2. [...] Dr. Murray in 2 weeks, or a senior underwriting assistant of her choice; the benefits for Cardiac [...] seen and examined by me with the resident/IMPRESS ASSOCIATE/PA and I agree with the History/Exam documented. [...] Oct 25, 2016 Social History TypeResponse 09/17/2016 [facility] Alcohol Never Substance Abuse Use: None. Smoking [...]
[2020-09-07] MEDS ORDERED: NA CHLORIDE 0.9% 500 ML ONE (15:16)
[2020-09-07] MEDS ORDERED: CEFTRIAXONE/SWI 1gm 1 GM/10 ML SYR ONE (15:16)
[2020-09-07] MEDS ORDERED: NA CHLORIDE 0.9% 1,000 ML ONE ×2 (15:16→22:21)
[2020-09-07] MEDS ORDERED: LEVALBUTEROL 1.25 MG/3 ML NEB ONE (15:16)
[2020-09-07 15:19] LABS: Absolute Lymphocytes (CBC) 0.4 K/uL (0.7-4.9); Basophils % 0.2 % (0-1.3); Hematocrit 28.9 % (36.0-45.0); Lymphocytes % 1.8 % (15.3-44.8); MPV 8.4 fL (7.6-11.3); RBC Red Blood Cell Count 2.99 M/uL (3.86-4.86)
[2020-09-07 15:20] LABS: ALT/SGPT 25 U/L (12-78); AST/SGOT 57 U/L (15-37); Albumin 2.5 g/dL (3.4-5.0); Alkaline Phosphatase 74 U/L (45-117); Amylase 28 U/L (25-115); BUN Blood Urea Nitrogen 17 mg/dL (7-18); Bicarbonate 31 mmol/L (21-32); Bilirubin Direct 0.4 mg/dL (0-0.2); Bilirubin Total 1.5 mg/dL (0.2-1.0); CKMB Creatine Kinase MB < 1.0 ng/mL (0.3-3.6); Creatine Phosphokinase 30 U/L (26-192); Glucose Level 121 mg/dL (74-106); Lipase 142 U/L (73-393); Potassium 4.4 mmol/L (3.5-5.1); Protein, Total 6.5 g/dL (6.4-8.2); Sodium Level 139 mmol/L (136-145); Troponin (Emerg Dept Use Only) 0.02 ng/mL (0.0-0.045)
--- NOTE | 2020-09-07 15:45 | RAD REPORT ---
EXAM DESCRIPTION: RAD - Chest Single View - 09/07/2020 3:38 pm CLINICAL HISTORY: CONGESTION Chest pain. COMPARISON: Chest Single View dated 09/01/2020; Chest Single View dated 08/22/2020; Chest Single Vie w dated 08/19/2020; Chest For Pe Angio dated 08/19/2020 FINDINGS: Portable technique limits examination quality. Extensive bilateral pulmonary opacities are again noted, appearing mildly progressive since the most recent comparative study. This likely represents bilateral pneumonia. The heart is significantly enla rged in size.
--- NOTE | 2020-09-07 16:02 | RAD REPORT ---
EXAM DESCRIPTION: CT - Thorax W/ Con CLINICAL HISTORY: Chest pain SOB, hypoxia COMPARISON: Chest For Pe Angio dated 08/19/2020; Chest Single View dated 09/07/2020 FINDINGS: Moderate to in significant worsening is seen in the bilateral alveolar and airspace opacit ies since 08/19/2020 prior study. Trace pleural fluid is present bilaterally. No pneumothorax. Signif icant cardiomegaly evident. No axillary, mediastinal or hilar adenopathy. No concerning bony finding. No gross upper abdominal finding. All CT scans are performed using dose optimization technique as appropriate and may include automated exposure control or mA/KV adjustment according to patient size. IMPRESSION: Significant bilateral airspace disease is present compatible with pneumonia. This has mo derately worsened since the comparative CT chest dated 08/19/2020.
[2020-09-07 16:44] LABS: Protime INR 1.56
--- NOTE | 2020-09-07 17:09 | EDPHYS ---
Physician Documentation [facility] Name: Yahaira Hill Age: 79 yrs Sex: Female : 1940 Arrival Date: 09/07/2020 Time: 14:17 Bed 1 Private MD: ED Physician Sebas Louis HPI: 09/07 18:11 This 79 yrs old Female presents to ER via EMS with complaints of Shortness Of kdr Breath. 18:11 The patient has shortness of breath at rest. Onset: The symptoms/episode began/occurred kdr this morning. Duration: The symptoms are continuous, and are steadily getting worse. The patient's shortness of breath is aggravated by exertion, light activity. The patient was noted to have poor pulse ox (50's) at home and with oxygen she had minimal improvement. EMS was called and put the patient on CPAP which improved her sats to the 80"s which is where she was on arrival to the ED. Associated signs and symptoms: Pertinent positives: This patient does not have any pertinent positive signs or symptoms associated with shortness of breath. Pertinent negatives: chest pain, productive cough. Severity of symptoms: At their worst the symptoms were moderate just prior to arrival, in the emergency department the symptoms are unchanged. Onset: The symptoms/episode began/occurred this morning. Severity of symptoms: At their worst the symptoms were moderate severe just prior to arrival, in the emergency department the symptoms are unchanged. The patient has not experienced similar symptoms in the past. The patient has been recently been admitted at [facility], was discharged last week. Historical: - Allergies: 14:43 Sulfa (Sulfonamide Antibiotics); ca1 - Home Meds: 14:54 aspirin 81 mg Oral TbEC 1 tab once daily [Active]; amlodipine 5 mg tab 1 tab once daily ca1 [Active]; prednisone 10 mg Oral tab 1 tab 2 times per day [Active]; Eliquis 5 mg oral tab 1 tab 2 times per day [Active]; atorvastatin 20 mg oral tab 1 tab once daily [Active]; metoprolol ER succinate 50 mg 1 tab twice a day [Active]; - PMHx: 14:43 Hypertension; CVA; ca1 - PSHx: 14:43 None; ca1 - Immunization history:: Adult Immunizations not up to date, Pneumococcal vaccine is not up to date, Flu vaccine is not up to date. - Social history:: Smoking status: Patient denies any tobacco usage or history of. ROS: 18:11 Constitutional: Negative for fever, chills, and weight loss, Eyes: Negative for injury, kdr pain, redness, and discharge, ENT: Negative for injury, pain, and discharge, Neck: Negative for injury, pain, and swelling, Cardiovascular: Negative for chest pain, palpitations, and edema, Abdomen/GI: Negative for abdominal pain, nausea, vomiting, diarrhea, and constipation, Back: Negative for injury and pain, : Negative for injury, bleeding, discharge, and swelling, MS/Extremity: Negative for injury and deformity, Skin: Negative for injury, rash, and discoloration, Neuro: Negative for headache, weakness, numbness, tingling, and seizure activity. Psych: Negative for depression, anxiety, suicide ideation, homicidal ideation, and hallucinations, Allergy/Immunology: Negative for hives, rash, and allergies, Endocrine: Negative for neck swelling, polydipsia, polyuria, polyphagia, and marked weight changes, Hematologic/Lymphatic: Negative for swollen nodes, abnormal bleeding, and unusual bruising. 18:11 Respiratory: Positive for cough, with no reported sputum, dyspnea on exertion, shortness of breath, Negative for orthopnea, pleurisy. Exam: 16:57 ECG was reviewed by the Attending Physician. kdr 18:11 Constitutional: This is a well developed, well nourished patient who is awake, alert, kdr and in no acute distress. Head/Face: Normocephalic, atraumatic. Eyes: Pupils equal round and reactive to light, extra-ocular motions intact. Lids and lashes normal. Conjunctiva and sclera are non-icteric and not injected. Cornea within normal limits. Periorbital areas with no swelling, redness, or edema. Neck: Trachea midline, no thyromegaly or masses palpated, and no cervical lymphadenopathy. Supple, full range of motion without nuchal rigidity, or vertebral point tenderness. No Meningismus. Chest/axilla: Normal chest wall appearance and motion. Nontender with no deformity. No lesions are appreciated. Abdomen/GI: Soft, non-tender, with normal bowel sounds. No distension or tympany. No guarding or rebound. No evidence of tenderness throughout. Back: No spinal tenderness. No costovertebral tenderness. Full range of motion. Skin: Warm, dry with normal turgor. Normal color with no rashes, no lesions, and no evidence of cellulitis. MS/ Extremity: Pulses equal, no cyanosis. Neurovascular intact. Full, normal range of motion. Neuro: Awake and alert, GCS 15, oriented to person, place, time, and situation. Cranial nerves II-XII grossly intact. Motor strength 5/5 in all extremities. Sensory grossly intact. Cerebellar exam normal. Normal gait. Psych: Awake, alert, with orientation to person, place and time. Behavior, mood, and affect are within normal limits. 18:11 Cardiovascular: Rate: tachycardic, Rhythm: regular, Pulses: no pulse deficits are appreciated, Heart sounds: normal, Edema: is not appreciated. 18:11 Respiratory: mild respiratory distress is noted, Respirations: labored breathing, that is mild, nasal flaring, shallow respirations, tachypnea, The patient was on CPAP on arrival. Vital Signs: 14:29 BP 86 / 62; Pulse 123; Resp 28 A; Temp 98.5(TE); Pulse Ox 92% on BiPAP; Weight 54.43 kg ca1 (R); Height 5 ft. 1 in. (154.94 cm) (R); Pain 0/10; 14:43 BP 104 / 72; Pulse 119; Resp 28 A; Pulse Ox 90% on BiPAP; ca1 15:23 BP 126 / 58; Pulse 110; Resp 25 A; Pulse Ox 92% on BiPAP; ca1 16:11 BP 130 / 52; Pulse 137; Resp 27 A; Pulse Ox 92% on BiPAP; ca1 16:12 Pulse 122; ca1 16:39 BP 140 / 75; Pulse 116; Resp 33 A; Pulse Ox 94% on BiPAP; ca1 17:11 BP 128 / 74; Pulse 137; Resp 22 A; Pulse Ox 74% on BiPAP; ca1 17:21 Pulse 114; ca1 18:06 BP 134 / 62; Pulse 115; Resp 30 A; Pulse Ox 81% on BiPAP; ca1 18:38 BP 137 / 87; Pulse 108; Resp 25 A; Pulse Ox 86% on BiPAP; ca1 19:00 BP 129 / 78; Pulse 119; Resp 36 A; Pulse Ox 84% on BiPAP; ca1 19:49 BP 121 / 79; Pulse 111; Resp 40 A; Pulse Ox 87% on BiPAP; ca1 20:46 BP 135 / 71; Pulse 124; Resp 35 A; Pulse Ox 86% on BiPAP; ca1 21:18 BP 147 / 77; Pulse 125; Resp 41 S; Pulse Ox 81% on BiPAP; ca1 21:26 Resp 32 S; Pulse Ox 74% on BiPAP; ca1 21:30 BP 156 / 70; Pulse 127; Resp 52; Pulse Ox 75% on BiPAP; sg 22:02 BP 136 / 109; Pulse 133; Resp 22; Pulse Ox 59% on BiPAP; rv 22:16 BP 39 / 15; Pulse 121; Resp 28; Pulse Ox 56% on BiPAP; rv 22:20 BP 88 / 69; Pulse 128; Resp 31; rv 22:22 BP 59 / 32; Pulse 111; Resp 30; Pulse Ox 64% on ETT vent; rv 22:30 BP 41 / 16; Pulse 139; Resp 31; Pulse Ox 78% ; rv 14:29 Body Mass Index 22.67 (54.43 kg, 154.94 cm) ca1 Procedures: 22:43 Intubation: Ventilated with 100% NRB prior to procedure. O2 saturation prior to mh7 procedure was 75 %. Intubated orally using # 3 Keysha blade with 7.5 mm ETT. was successful on first attempt. Ventilated with Ambu bag. ventilator. Cricoid pressure applied during procedure. Tube secured with ETT olsen at right side of mouth measured 23 cm at teeth. Placement verified by CO2 detector with (+) color change, auscultating bilateral breath sounds, Patient tolerated well. 09/08 05:25 CPR: See CPR flow sheet. Initial patient assessment: unresponsive, cyanotic, pupils mh7 fixed \\T\\ dilated, no respiratory effort, intubated, Ambu ventilation, The presenting cardiac rhythm is PEA. respirations assisted with BVM, Compressions: began at 22:28. Meds given: Epinephrine high dose. Sodium Bicarbonate 1 AMP. despite ED evaluation and treatment, the patient . Family notified. PMD notified. PMD will sign certificate. CPR was stopped at 22:41. MDM: 09/07 17:09 Patient medically screened. kdr 18:11 Data reviewed: vital signs, nurses notes, lab test result(s), radiologic studies. kdr Counseling: I had a detailed discussion with the patient and/or guardian regarding: the historical points, exam findings, and any diagnostic results supporting the discharge/admit diagnosis, lab results, radiology results, the need for further work-up and treatment in the hospital. 09/07 14:25 Order name: Amylase, Serum; Complete Time: 16:32 kdr 09/07 14:25 Order name: Basic Metabolic Panel; Complete Time: 16:32 kdr 09/07 14:25 Order name: Blood Culture Adult (2) kdr 09/07 14:25 Order name: CBC with Diff kdr 09/07 14:25 Order name: Ckmb; Complete Time: 16:32 kdr 09/07 14:25 Order name: CPK; Complete Time: 16:32 kdr 09/07 14:25 Order name: Lactate; Complete Time: 16:32 kdr 09/07 14:25 Order name: LFT's; Complete Time: 16:32 kdr 09/07 14:25 Order name: Lipase; Complete Time: 16:32 kdr 09/07 14:25 Order name: Procalcitonin; Complete Time: 21:37 kdr 09/07 14:25 Order name: Protime (+inr); Complete Time: 21:37 kdr 09/07 14:25 Order name: Ptt, Activated; Complete Time: 21:37 kdr 09/07 14:25 Order name: Troponin (emerg Dept Use Only); Complete Time: 16:32 kdr 09/07 14:25 Order name: Urine Microscopic Only kdr 09/07 18:23 Order name: CBC with Automated Diff EDMS 09/07 18:24 Order name: CBC with Automated Diff EDMS 09/07 18:24 Order name: Comprehensive Metabolic Panel EDMS 09/07 18:24 Order name: Comprehensive Metabolic Panel EDMS 09/07 18:24 Order name: Lactate EDMS 09/07 18:24 Order name: Lactate EDMS 09/07 18:24 Order name: Lipid Profile EDMS 09/07 18:24 Order name: Lipid Profile EDMS 09/07 18:24 Order name: Magnesium EDMS 09/07 18:24 Order name: Magnesium EDMS 09/07 18:24 Order name: NT PRO-BNP EDMS 09/07 18:24 Order name: NT PRO-BNP EDMS 09/07 18:24 Order name: Phosphorus EDMS 09/07 18:24 Order name: Phosphorus EDMS 09/07 18:24 Order name: Troponin I EDMS 09/07 18:24 Order name: Troponin I EDTX 09/07 14:25 Order name: Chest Single View XRAY; Complete Time: 16:32 kdr 09/07 14:25 Order name: Cardiac monitoring; Complete Time: 14:50 kdr 09/07 14:25 Order name: EKG - Nurse/Tech; Complete Time: 14:50 kdr 09/07 14:25 Order name: IV Saline Lock - Large Bore; Complete Time: 14:44 kdr 09/07 14:25 Order name: Labs collected and sent; Complete Time: 14:44 kdr 09/07 14:25 Order name: O2 Per Protocol; Complete Time: 14:44 kdr 09/07 14:25 Order name: O2 Sat Monitoring; Complete Time: 14:44 kdr 09/07 14:25 Order name: Urine Dipstick-Ancillary (obtain specimen); Complete Time: 20:22 kdr 09/07 14:39 Order name: CT Chest W/ Con; Complete Time: 16:32 kdr 09/07 18:23 Order name: CONS Physician Consult [facility] 09/07 18:23 Order name: Heart Healthy [facility] 09/07 18:24 Order name: Troponin I [facility] 09/07 18:26 Order name: CORONAVIRUS [facility] 09/07 20:25 Order name: Urine Dipstick--Ancillary (enter results) tt3 09/07 20:57 Order name: Urine Dipstick-Ancillary; Complete Time: 21:37 [facility] 09/07 21:23 Order name: SARS-COV-2 RT PCR; Complete Time: 21:37 EDTX 09/07 21:45 Order name: Manual Differential EDTX 09/07 22:24 Order name: NG Tube; Complete Time: 22:25 sg 09/07 22:50 Order name: Glucose, Ancillary Testing EDTX 09/08 00:01 Order name: ABG Arterial Blood Gas EDTX 09/07 22:24 Order name: Mata; Complete Time: 22:25 sg EC:57 Rate is 115 beats/min. Rhythm is irregularly irregular, A fib with No ectopy. QRS [place] kdr is Normal. DE interval is normal. QRS interval is normal. QT interval is normal. Clinical impression: Atrial Fibrillation and No evidence of ischemia. Administered Medications: 10:00 Drug: Etomidate 20 mg Route: IVP; Site: right wrist; sg 10:02 Drug: Rocuronium 50 mg Route: IVP; Site: right wrist; sg 15:10 Drug: NS 0.9% (30 ml/kg) 30 ml/kg Route: IV; Rate: bolus; Site: left antecubital; ca1 17:00 Follow up: Response: No adverse reaction; IV Status: Completed infusion; IV Intake: ca1 1500ml 15:12 Drug: Rocephin - (cefTRIAXone) 1 grams Route: IVPB; Infused Over: 30 mins; Site: left ca1 antecubital; 15:45 Follow up: Response: No adverse reaction; IV Status: Completed infusion ca1 15:30 Drug: Xopenex (3) 1.25 mg Route: Inhalation; ca1 22:29 Drug: EPINEPHrine 0.1mg/mL 1:10,000 1 mg Route: IVP; Site: left antecubital; rv 22:32 Drug: EPINEPHrine 0.1mg/mL 1:10,000 1 mg Route: IVP; Site: left antecubital; rv 22:34 Drug: Sodium Bicarbonate 1 amp Route: IVP; Site: right hand; rv 22:35 Drug: EPINEPHrine 0.1mg/mL 1:10,000 1 mg Route: IVP; Site: left antecubital; rv 22:38 Drug: EPINEPHrine 0.1mg/mL 1:10,000 1 mg Route: IVP; Site: left antecubital; rv Disposition: 09/07/20 17:09 Hospitalization ordered by Gunnar Obrien for Inpatient Admission. Preliminary diagnosis are Pneumonia, unspecified organism, Acute respiratory failure with hypoxia. - Bed requested for [facility] ER HOLD. - Status is Inpatient Admission. sg - Condition is Fair. - Problem is an acute exacerbation. - Symptoms have improved. Signatures: Dispatcher [employer] EDMS Jonah Oswald RN RN sg Sebas Louis MD MD kdr Melida Taylor RN RN ss Binu Bhagat RN RN rv Cielo Lujan RN RN ca1 Arsen Saxena MD MD mh7 Corrections: (The following items were deleted from the chart) 14:50 14:25 Accucheck ordered. kdr ca1 15:04 14:52 Accucheck ordered. ca1 ca1 21:10 17:09 Hospitalization Ordered by Gunnar Obrien MD for Inpatient Admission. Preliminary ss diagnosis is Pneumonia, unspecified organism; Acute respiratory failure with hypoxia. Bed requested for Telemetry/MedSurg (Inpatient). Status is Inpatient Admission. Condition is Fair. Problem is an acute exacerbation. Symptoms have improved. [facility] 09/08 02:47 09/07 21:10 09/07/2020 17:09 Hospitalization Ordered by Gunnar Obrien MD for Inpatient sg Admission. Preliminary diagnosis is Pneumonia, unspecified organism; Acute respiratory failure with hypoxia. Bed requested for [facility] ER HOLD. Status is Inpatient Admission. Condition is Fair. Problem is an acute exacerbation. Symptoms have improved. ss
--- NOTE | 2020-09-07 17:09 | ER ---
Nurse's Notes [facility] Name: Yahaira Hill Age: 79 yrs Sex: Female : 1940 Arrival Date: 09/07/2020 Time: 14:17 Bed 1 Private MD: Diagnosis: Pneumonia, unspecified organism;Acute respiratory failure with hypoxia Presentation: 09/07 14:29 Chief complaint: EMS states: Positive of Covid-19 on 09/02/2020, was admitted here for ca1 Covid Pneumonia and discharged on 09/02/2020. This morning, pt started coughing 3 hrs IRRIGATOR OVERHEAD. nurse said pt was 58% on RA and when we got her on Bipap we had her at 83%. RR at 30s. Coronavirus screen: Client denies travel out of the [place] in the last 14 days. Client presents with at least one sign or symptom that may indicate coronavirus-19. Standard/surgical mask placed on the client. Provider contacted for isolation considerations. Client reports previous positive COVID test result. Date of collection: August 10, 2020. Ebola Screen: Patient negative for fever greater than or equal to 101.5 degrees Fahrenheit, and additional compatible Ebola Virus Disease symptoms Patient denies exposure to infectious person. Patient denies travel to an Ebola-affected area in the 21 days before illness onset. No symptoms or risks identified at this time. Initial Sepsis Screen: Does the patient meet any 2 criteria? RR > 20 per min. Mean Arterial Pressure (MAP) < 65. HR > 90 bpm. Yes Does the patient have a suspected source of infection? Yes: Productive cough/pneumonia If YES to both, name of provider notified: Sebas Louis MD. Risk Assessment: Do you want to hurt yourself or someone else? Patient reports no desire to harm self or others. Onset of symptoms was September 07, 2020. 14:29 Method Of Arrival: EMS: [facility] ca1 14:29 Acuity: JIMMY 2 ca1 22:00 Care prior to arrival: None. rv 22:00 Compressions began at 22:28. rv Historical: - Allergies: 14:43 Sulfa (Sulfonamide Antibiotics); ca1 - Home Meds: 14:54 aspirin 81 mg Oral TbEC 1 tab once daily [Active]; amlodipine 5 mg tab 1 tab once daily ca1 [Active]; prednisone 10 mg Oral tab 1 tab 2 times per day [Active]; Eliquis 5 mg oral tab 1 tab 2 times per day [Active]; atorvastatin 20 mg oral tab 1 tab once daily [Active]; metoprolol ER succinate 50 mg 1 tab twice a day [Active]; - PMHx: 14:43 Hypertension; CVA; ca1 - PSHx: 14:43 None; ca1 - Immunization history:: Adult Immunizations not up to date, Pneumococcal vaccine is not up to date, Flu vaccine is not up to date. - Social history:: Smoking status: Patient denies any tobacco usage or history of. Screenin:44 Abuse screen: Denies threats or abuse. Nutritional screening: No deficits noted. ca1 Tuberculosis screening: No symptoms or risk factors identified. Fall Risk IV access (20 points). Assessment: 14:44 General: Appears distressed, comfortable, Behavior is calm, cooperative, appropriate ca1 for age. Pain: Denies pain. Neuro: Level of Consciousness is awake, alert, obeys commands, Oriented to person, place, time, situation. Cardiovascular: Heart tones S1 S2 present Capillary refill is > 3 seconds Thorax Rhythm is atrial fibrillation. Respiratory: Reports shortness of breath at rest cough that is non-productive, Airway is patent Respiratory effort is even, unlabored, Respiratory pattern is regular, symmetrical, Patient placed on BiPAP: Inspiratory Pressure: 12 Expiratory (EPAP) Pressure: 8 FiO2%: 100 Respiratory Rate: 28 Breath sounds are diminished in left posterior lower lobe and right posterior lower lobe. GI: Abdomen is flat, non-distended, Bowel sounds present X 4 quads. Abd is soft and non tender X 4 quads. : No signs and/or symptoms were reported regarding the genitourinary system. EENT: No signs and/or symptoms were reported regarding the EENT system. Derm: Skin is intact, is healthy with good turgor, Skin is pink, warm \T\ dry. Musculoskeletal: Circulation, motion, and sensation intact. Capillary refill < 3 seconds. 15:23 Reassessment: Patient appears in no apparent distress at this time. No changes from ca1 previously documented assessment. Patient and/or family updated on plan of care and expected duration. Pain level reassessed. 16:39 Reassessment: Patient appears in no apparent distress at this time. No changes from ca1 previously documented assessment. Patient and/or family updated on plan of care and expected duration. Pain level reassessed. Pt eyes closed, resting at this time. 17:19 Reassessment: Patient appears in no apparent distress at this time. No changes from ca1 previously documented assessment. Patient and/or family updated on plan of care and expected duration. Pain level reassessed. Notified RT re pt's 02 sats of low 70s. Pt appears NOT in distress at this time. Able to answer questions in complete sentences. Pt not exerting herself. 17:35 Reassessment: RT Octavia at bedside. ca1 18:06 Reassessment: Patient appears in no apparent distress at this time. No changes from ca1 previously documented assessment. Patient and/or family updated on plan of care and expected duration. Pain level reassessed. Dr. Obrien at bedside. 18:39 Respiratory: Patient placed on BiPAP: Inspiratory Pressure: 15 Expiratory (EPAP) ca1 Pressure: 15 Respiratory Rate: 100. 18:39 Reassessment: Azra RT states to put pt on side to maintain 02 sats. ca1 19:00 Reassessment: Patient appears in no apparent distress at this time. No changes from ca1 previously documented assessment. Patient and/or family updated on plan of care and expected duration. Pain level reassessed. 19:49 Reassessment: Patient appears in no apparent distress at this time. No changes from ca1 previously documented assessment. Patient and/or family updated on plan of care and expected duration. Pain level reassessed. 20:46 Reassessment: Patient appears in no apparent distress at this time. No changes from ca1 previously documented assessment. Patient and/or family updated on plan of care and expected duration. Pain level reassessed. 21:18 Reassessment: RT at bedside. ca1 21:26 Reassessment: Patient appears in no apparent distress at this time. Reassessment: ca1 Called Dr. Sadler and notified re pt's statues, increased RR and O2 saturation at low 70s. Dr. Sadler says he is coming down to ER to talk with family for possible intubation. Pt still able to complete sentences and does not appear in respiratory distress at this time. Pt resting, eyes closed. 21:36 Reassessment: Reassessment: Patient appears in no apparent distress at this time. No ca1 changes from previously documented assessment. Patient and/or family updated on plan of care and expected duration. Pain level reassessed. Dr. Sadler at bedside. 21:40 Reassessment: pt appears distressed, aa\T\ox3 , reports having shortness of breath and sg feeling tired, pt family at bedside speaking with pt at this time, awaiting pt transport to ER bed 3 for intubation per order. 21:50 Reassessment: Transferred to Trauma room [address] Sadler and Dr. Saxena at ca1 bedside.. Family at bedside. 22:08 Reassessment: INTUBATION DONE BY DR SAXENA, SIZE 7.5 ET LEVEL 23 AT THE TEETH. NGT F16 rv IN RIGHT NARE, INSERTED BY JULI MCKENZIE. INSERTED LIMA F16, WITH CLEAR YELLOW URINE BACKFLOW. 22:28 Reassessment: PATIENT IS HYPOTENSIVE, BRADYCARDIA, NO PULSE APPRECIATED. CODE BLUE rv INITIATED. CPR AND AMBU BAGGING STARTED. EPI GIVEN EVERY 3 MINUTES ORDERED WITH PULSE CHECK EVERY TWO MINUTES. DR SAXENA AT THE BEDSIDE. 22:28 CPR assessment: unresponsive, no respiratory effort, intubated, cyanotic, pulses absent rv w/ compressions. 22:41 Reassessment: CPR TERMINATED. DR SAXENA PRONOUNCED AT 2241. rv 09/08 01:49 Reassessment: MANOJ LEWIS (DAUGHTER): [phone]. rv Vital Signs: 09/07 14:29 BP 86 / 62; Pulse 123; Resp 28 A; Temp 98.5(TE); Pulse Ox 92% on BiPAP; Weight 54.43 kg ca1 (R); Height 5 ft. 1 in. (154.94 cm) (R); Pain 0/10; 14:43 BP 104 / 72; Pulse 119; Resp 28 A; Pulse Ox 90% on BiPAP; ca1 15:23 BP 126 / 58; Pulse 110; Resp 25 A; Pulse Ox 92% on BiPAP; ca1 16:11 BP 130 / 52; Pulse 137; Resp 27 A; Pulse Ox 92% on BiPAP; ca1 16:12 Pulse 122; ca1 16:39 BP 140 / 75; Pulse 116; Resp 33 A; Pulse Ox 94% on BiPAP; ca1 17:11 BP 128 / 74; Pulse 137; Resp 22 A; Pulse Ox 74% on BiPAP; ca1 17:21 Pulse 114; ca1 18:06 BP 134 / 62; Pulse 115; Resp 30 A; Pulse Ox 81% on BiPAP; ca1 18:38 BP 137 / 87; Pulse 108; Resp 25 A; Pulse Ox 86% on BiPAP; ca1 19:00 BP 129 / 78; Pulse 119; Resp 36 A; Pulse Ox 84% on BiPAP; ca1 19:49 BP 121 / 79; Pulse 111; Resp 40 A; Pulse Ox 87% on BiPAP; ca1 20:46 BP 135 / 71; Pulse 124; Resp 35 A; Pulse Ox 86% on BiPAP; ca1 21:18 BP 147 / 77; Pulse 125; Resp 41 S; Pulse Ox 81% on BiPAP; ca1 21:26 Resp 32 S; Pulse Ox 74% on BiPAP; ca1 21:30 BP 156 / 70; Pulse 127; Resp 52; Pulse Ox 75% on BiPAP; sg 22:02 BP 136 / 109; Pulse 133; Resp 22; Pulse Ox 59% on BiPAP; rv 22:16 BP 39 / 15; Pulse 121; Resp 28; Pulse Ox 56% on BiPAP; rv 22:20 BP 88 / 69; Pulse 128; Resp 31; rv 22:22 BP 59 / 32; Pulse 111; Resp 30; Pulse Ox 64% on ETT vent; rv 22:30 BP 41 / 16; Pulse 139; Resp 31; Pulse Ox 78% ; rv 14:29 Body Mass Index 22.67 (54.43 kg, 154.94 cm) ca1 ED Course: 14:17 Patient arrived in ED. em1 14:24 Sebas Louis MD is Attending Physician. kdr 14:29 Cielo Lujan RN is Primary Nurse. ca1 14:43 Triage completed. ca1 14:43 Arm band placed on right wrist. ca1 14:44 Patient has correct armband on for positive identification. Placed in gown. Bed in low ca1 position. Call light in reach. Side rails up X2. residential monitor on. Pulse ox on. NIBP on. Warm blanket given. Head of bed elevated. 14:44 Inserted saline lock: 20 gauge in left antecubital area, using aseptic technique. Blood dh4 collected. 15:38 Chest Single View XRAY In Process Unspecified. EDMS 15:54 CT Chest W/ Con In Process Unspecified. EDMS 17:08 Gunnar Obrien MD is Hospitalizing Provider. kdr 19:51 No provider procedures requiring assistance completed. Patient admitted, IV remains in ca1 place. 22:00 Lima cath inserted, using sterile technique, 16 Fr., by tn, balloon inflated, to rv gravity drainage, returned clear yellow urine. Patient tolerated well. 22:15 Report given to JULI Waters. ca1 22:25 NGT: inserted 16 Fr. via right nare. verified placement of air over stomach, verified sg return of gastric contents, to intermittent suction. Returned gastric contents. Amount of gastric contents removed by suction 50ml. Patient tolerated remains sedated at this time. Administered Medications: 10:00 Drug: Etomidate 20 mg Route: IVP; Site: right wrist; sg 10:02 Drug: Rocuronium 50 mg Route: IVP; Site: right wrist; sg 15:10 Drug: NS 0.9% (30 ml/kg) 30 ml/kg Route: IV; Rate: bolus; Site: left antecubital; ca1 17:00 Follow up: Response: No adverse reaction; IV Status: Completed infusion; IV Intake: ca1 1500ml 15:12 Drug: Rocephin - (cefTRIAXone) 1 grams Route: IVPB; Infused Over: 30 mins; Site: left ca1 antecubital; 15:45 Follow up: Response: No adverse reaction; IV Status: Completed infusion ca1 15:30 Drug: Xopenex (3) 1.25 mg Route: Inhalation; ca1 22:29 Drug: EPINEPHrine 0.1mg/mL 1:10,000 1 mg Route: IVP; Site: left antecubital; rv 22:32 Drug: EPINEPHrine 0.1mg/mL 1:10,000 1 mg Route: IVP; Site: left antecubital; rv 22:34 Drug: Sodium Bicarbonate 1 amp Route: IVP; Site: right hand; rv 22:35 Drug: EPINEPHrine 0.1mg/mL 1:10,000 1 mg Route: IVP; Site: left antecubital; rv 22:38 Drug: EPINEPHrine 0.1mg/mL 1:10,000 1 mg Route: IVP; Site: left antecubital; rv Intake: 17:00 IV: 1500ml; Total: 1500ml. ca1 Outcome: 17:09 Decision to Hospitalize by Provider. kdr 22:41 Patient : Time of 22:41 Pronounced by Arsen Saxena MD rv 22:41 Condition: 22:41 Outcome Patient rv 09/08 02:47 Patient left the ED. sg Signatures: Dispatcher [employer] EDMS Jonah Oswald RN RN sg Sebas Louis MD MD kdr Martinez, Eric em1 Binu Bhagat RN RN rv Cielo Lujan RN RN ca1 Dewayne Torrez 4 Corrections: (The following items were deleted from the chart) 09/07 14:44 14:29 BP 86 / 62; Pulse 123bpm; Resp 28bpm; Spontaneous; Pulse Ox 92% BiPAP; Temp 98.5F ca1 Temporal; 54.43 kg Reported; Height 5 ft. 1 in. Reported; BMI: 22.6; Pain 0/10; ca1 16:11 14:44 Respiratory: Reports shortness of breath at rest cough that is non-productive, ca1 Airway is patent Respiratory effort is even, unlabored, Respiratory pattern is regular, symmetrical, Breath sounds are diminished in left posterior lower lobe and right posterior lower lobe ca1 16:12 15:23 BP 126 / 58; Pulse 110bpm; Resp 25bpm; Pulse Ox 92% BiPAP; ca1 ca1 18:39 18:38 BP 137 / 87; Pulse 108bpm; Resp 25bpm; Assisted; Pulse Ox 84% BiPAP; ca1 ca1 19:25 18:39 Respiratory: Patient placed on BiPAP: Inspiratory Pressure: 15 Expiratory (EPAP) ca1 Pressure: 15 Respiratory Rate: 100 ca1 20:03 15:23 Reassessment: Patient appears in no apparent distress at this time. Patient ca1 and/or family updated on plan of care and expected duration. Pain level reassessed. Patient is alert, oriented x 3, equal unlabored respirations, skin warm/dry/pink. ca1 20:03 16:39 Reassessment: Patient appears in no apparent distress at this time. Patient ca1 and/or family updated on plan of care and expected duration. Pain level reassessed. Patient is alert, oriented x 3, equal unlabored respirations, skin warm/dry/pink. Pt eyes closed, resting at this time ca1 20:03 17:19 Reassessment: Patient appears in no apparent distress at this time. Patient is ca1 alert, oriented x 3, equal unlabored respirations, skin warm/dry/pink. Notified RT re pt's 02 sats of low 70s. Pt appears NOT in distress at this time. Able to answer questions in complete sentences. Pt not exerting herself. ca1 20: 18:06 Reassessment: Patient appears in no apparent distress at this time. Patient ca1 and/or family updated on plan of care and expected duration. Pain level reassessed. Patient is alert, oriented x 3, equal unlabored respirations, skin warm/dry/pink. Dr. Obrien at bedside ca1 20: 19:00 Reassessment: Patient appears in no apparent distress at this time. Patient ca1 and/or family updated on plan of care and expected duration. Pain level reassessed. Patient is alert, oriented x 3, equal unlabored respirations, skin warm/dry/pink. ca1 20: 19:49 Reassessment: Patient appears in no apparent distress at this time. Patient ca1 and/or family updated on plan of care and expected duration. Pain level reassessed. Patient is alert, oriented x 3, equal unlabored respirations, skin warm/dry/pink. ca1 21:21 21:18 BP 147 / 77; Pulse 125bpm; Resp 41bpm; Spontaneous; Pulse Ox 91% BiPAP; ca1 ca1 21:31 19:00 BP 129 / 78; Pulse 119bpm; Resp 36bpm; Assisted; Pulse Ox 90% BiPAP; ca1 ca1 21:32 21:26 Reassessment: Called Dr. Sadler and notified re pt's statues, increased RR and O2 ca1 saturation at low 70s. Dr. Sadler says he is coming down to ER to talk with family for possible intubation ca1 21:37 21:26 Reassessment: Called Dr. Sadler and notified re pt's statues, increased RR and O2 ca1 saturation at low 70s. Dr. Sadler says he is coming down to ER to talk with family for possible intubation. Pt still able to complete sentences and does not appear in respiratory distress at this time ca1 22:29 21:36 Reassessment: Patient appears in no apparent distress at this time. No changes ca1 from previously documented assessment. Patient and/or family updated on plan of care and expected duration. Pain level reassessed. Dr. Sadler at bedside Reassessment: Patient appears in no apparent distress at this time. No changes from previously documented assessment. Patient and/or family updated on plan of care and expected duration. Pain level reassessed. Dr. Sadler at bedside ca1 22:31 22:29 Report given to JULI Waters ca1 ca1 09/08 01:53 01:51 Condition: rv rv 01:53 01:52 Patient : Time of 22:41 Pronounced by Arsen Saxena MD rv rv 02:49 01:49 Reassessment: MANOJ LEWIS ([facility]): [phone] rv rv
[2020-09-07] MEDS ORDERED: ZOLPIDEM TARTRATE 5 MG TABLET PO PRN (18:18)
[2020-09-07] MEDS ORDERED: ONDANSETRON 4 MG/2 ML VIAL IV PRN (18:18)
[2020-09-07] MEDS ORDERED: ACETAMINOPHEN 500 MG TAB PO PRN (18:18)
--- NOTE | 2020-09-07 18:24 | P.HP ---
Certification for Inpatient Patient admitted to: Inpatient With expected LOS: >2 Midnights Patient will require the following post-hospital care: None Practitioner: I am a practitioner with admitting privileges, knowledge of patient current condition, hospital course, and medical plan of care. Services: Services provided to patient in accordance with Admission requirements found in Title 42 Section 412.3 of the Code of Federal Regulations Patient History Date of Service: 09/07/20 Reason for admission: MULTIFOCAL PNEUMONIA History of Present Illness: Patient is a 79-year-old female came to the hospital in respiratory distress. Patient has a history of prolonged hospital stay with COVID-19 pneumonia. She was discharged on and the family states she was looking pretty good. She had been breathing with more difficulty through the day today. They had her on BiPAP and patient's granddaughter came out to visit and they checked her oxygen saturation and it was 40%. They called EMS and she was brought to the emergency room. In the emergency room patient was placed on BiPAP. Currently she is on BiPAP support and her saturations are 85-88% per respiratory therapy. She is very anxious and starts talking quite a bit. Her daughter was at bedside. We repeated her COVID-19 which was negative. It looks like patient has extensive pneumonia but procalcitonin is negative. This goes along with more of a viral picture or in interstitial pneumonia which could be immune mediated. Will put her on broad-spectrum antibiotics and IV steroids. Continue nebulizer support since her COVID-19 is negative. At this time, her prognosis is poor. Family wishes for everything to be done. They do want her to be intubated if her respiratory status is not improving. I notify Pulmonary regarding patient's current clinical condition and I also spoke with oncoming hospitalist regarding her current clinical condition as well. Patient will be going to the intensive care unit. I did talk to the daughter about her current clinical status and that she may require intubation if her oxygenation does not improve with her current treatment plan. Allergies Sulfa (Sulfonamide Antibiotics) Allergy (Verified 08/19/20 21:19) Anaphylaxis Home Medications: Amlodipine [Norvasc*] 5 mg PO BID 08/19/20 Apixaban [Eliquis *] 5 mg PO BID 08/19/20 Aspirin [[place] Aspirin EC] 81 mg PO DAILY 08/19/20 Atorvastatin Calcium 20 mg PO DAILY 08/19/20 Metoprolol Succinate 50 mg PO BID 08/19/20 predniSONE [Prednisone*] 10 mg PO BID #30 tab 09/02/20 - Past Medical/Surgical History Diabetic: No -: Hypertension -: Hyperlipidemia -: Atrial fibrillation on chronic anticoagulation therapy-Eliquis -: CVA -: none Psychosocial/ Personal History: Patient currently lives at home with her family. - Family History Father Family History: Reviewed- Non-Contributory - Social History Smoking Status: Former smoker Alcohol use: No CD- Drugs: No Caffeine use: Yes Review of Systems is unable to be obtained (Patient was BiPAP support and hypoxic) Physical Examination - Vital Signs Temperature: 99.8 F Blood Pressure: 110/70 Pulse: 90 Respirations: 22 Pulse Ox (%): 88 - Physical Exam General: Alert, Severe distress HEENT: Atraumatic, PERRLA, Mucous membr. moist/pink, EOMI, Sclerae nonicteric Neck: Supple, 2+ carotid pulse no bruit, No LAD, Without JVD or thyroid abnormality Respiratory: Diminished, Expiratory wheezes, Rhonchi/gurgles Cardiovascular: Regular rate/rhythm, Normal S1 S2, Systolic murmur Gastrointestinal: Normal bowel sounds, Soft and benign, Non-distended, No tend erness Musculoskeletal: No clubbing, No swelling, No tenderness Integumentary: No rashes Neurological: Normal tone, Sensation intact, Cranial nerves 3-12 intact, Abnormal strength Lymphatics: No axilla or inguinal lymphadenopathy - Studies Laboratory Data (last 24 hrs) 09/07/20 14:38: PT 18.3 H, INR 1.56, APTT 26.6 09/07/20 14:38: WBC 21.5 H*, Hgb 9.7 L, Hct 28.9 L, Plt Count 239 09/07/20 14:38: Sodium 139, Potassium 4.4, BUN 17, Creatinine 0.66, Glucose 121 H, Total Bilirubin 1.5 H, AST 57 H, ALT 25, Alkaline Phosphatase 74, Amylase 28, Lipase 142 Assessment & Plan - Problems (Diagnosis) (1) Acute respiratory failure due to severe acute respiratory syndrome coronavirus 2 (SARS-CoV-2) infection Status: Acute (2) Chronic atrial fibrillation Status: Acute (3) Hyperlipidemia Status: Acute (4) Hypertension Status: Acute (5) Pneumonitis Status: Acute - Plan 1. Continue with IV antibiotics 2. Awaiting sputum and blood culture 3. Repeat chest x-ray 4. Continue with IV steroids and nebulizer therapy 5. Continue BiPAP support 6. Monitor volume status closely 7. Continue with gentle hydration 8. Repeat labs in a.m. along with ABG 9. Patient is a full code 10. Signed out to oncoming hospitalist and Pulmonary cost consultant regarding status 11. Continue on GI and DVT prophylaxis Discharge Plan: Other Plan to discharge in: Greater than 2 days - Advance Directives Does patient have a Living Will: No Does patient have a Durable POA for Healthcare: No - Code Status/Comfort Care Code Status Assessed: Yes Code Status: Full Code Critical Care: Yes Time Spent Managing PTS Care (In Minutes): 60
[2020-09-07] MEDS ORDERED: NA CHLORIDE 0.9% 1,000 ML IV SCH (19:00)
[2020-09-07] MEDS ORDERED: ALBUTEROL 2.5 MG/3 ML NEB SOL ONE (19:46)
[2020-09-07] MEDS ORDERED: IPRATROPIUM BROM 0.5MG/2.5ML ONE (19:46)
[2020-09-07] MEDS ORDERED: ALBUTEROL 2.5 MG/3 ML NEB SOL NEB SCH (20:00)
[2020-09-07] MEDS ORDERED: IPRATROPIUM BROM 0.5MG/2.5ML NEB SCH (20:00)
[2020-09-07 20:56] LABS: Urine Blood TRACE (NEG); Urine Glucose NEGATIVE (NEG); Urine Protein TRACE (NEG); Urine Specific Gravity 1.015 (1.005-1.030)
[2020-09-07] MEDS ORDERED: ENOXAPARIN 40 MG/0.4 ML SQ SCH (21:00)
[2020-09-07] MEDS ORDERED: Levofloxacin 750mg IV 750 MG/150 ML BAG IV SCH (21:00)
[2020-09-07 21:44] LABS: Blood Morphology Comment NOT SEEN (NOT SEEN); Platelet Estimate ADEQ
[2020-09-07] MEDS ORDERED: RSI MEDICATION KIT IV ONE (22:11)
[2020-09-07] MEDS ORDERED: propofoL 1,000 MG/100 ML VIAL IV ONE (22:22)
--- NOTE | 2020-09-07 23:11 | P.DS ---
Admission Date: 09/07/20 Discharge Date: 09/07/20 Disposition: Discharge Condition: Reason for Admission: MULTIFOCAL PNEUMONIA Hospital Course: Cardiorespiratory arrest Acute hypoxic respiratory failure Multifocal pneumonia secondary to COVID 19 Hypertension Hyperlipidemia Atrial fibrillation on chronic anticoagulation therapy-Eliquis H/o CVA 79-year-old female who was recently been discharged from the hospital with COVID 19 pneumonia brought back to ER with worsening of shortness of breath and had significant hypoxia . patient was admitted for further management. she was started on BiPAP. the CT was suggestive of multifocal pneumonia which was worsened from the last admission. Patient was significantly hypoxic even with titrating BiPAP to the maximum. ABG was obtained which showed significant hypoxemia. Discussed with the patient and family and ER doctor. Appreciate help from ER doctor in intubating the patient. she was intubated successfully by the ER doctor.Patient went into cardiac arrest and attempt to resuscitate her with prolonged CPR and medications was not successful. Patient clinically . Laboratory Data at Discharge: WBC 21.5 K/uL (4.3-10.9) H* 09/07/20 14:38 Hgb 9.7 g/dL (12.0-15.0) L 09/07/20 14:38 Hct 28.9 % (36.0-45.0) L 09/07/20 14:38 Plt Count 239 K/uL (152-406) 09/07/20 14:38 PT 18.3 SECONDS (9.5-12.5) H 09/07/20 14:38 INR 1.56 09/07/20 14:38 APTT 26.6 SECONDS (24.3-36.9) 09/07/20 14:38 Sodium 139 mmol/L (136-145) 09/07/20 14:38 Potassium 4.4 mmol/L (3.5-5.1) 09/07/20 14:38 BUN 17 mg/dL (7-18) 09/07/20 14:38 Creatinine 0.66 mg/dL (0.55-1.3) 09/07/20 14:38 Glucose 121 mg/dL (74-106) H 09/07/20 14:38 Total Bilirubin 1.5 mg/dL (0.2-1.0) H 09/07/20 14:38 AST 57 U/L (15-37) H 09/07/20 14:38 ALT 25 U/L (12-78) 09/07/20 14:38 Alkaline Phosphatase 74 U/L (45-117) 09/07/20 14:38 Amylase 28 U/L (25-115) 09/07/20 14:38 Lipase 142 U/L (73-393) 09/07/20 14:38 Home Medications: Amlodipine [Norvasc*] 5 mg PO BID 08/19/20 Apixaban [Eliquis *] 5 mg PO BID 08/19/20 Aspirin [[place] Aspirin EC] 81 mg PO DAILY 08/19/20 Atorvastatin Calcium 20 mg PO DAILY 08/19/20 Metoprolol Succinate 50 mg PO BID 08/19/20 predniSONE [Prednisone*] 10 mg PO BID #30 tab 09/02/20 Followup: Unknown,U [Primary Care Provider] -
[2020-09-07 23:59] LABS: Arterial Blood Carboxyhemoglob 1.5 % (0-1.5); Blood Gas Oxyhemoglobin 76.5 % (94-97); Blood O2 Saturation 78.2 % (92-98.5)
[2020-09-08] MEDS ORDERED: PIPER/TAZO/NS 3.375gm 3.375 GM/100 ML BAG IVPB SCH
[2020-09-08] MEDS ORDERED: METHYLPREDNISOLONE 40 MG INJ IV SCH (01:00)
[2020-09-08] MEDS ORDERED: EPINEPHrine 1 MG/10 ML SYR IV ONE (02:48)
[2020-09-08] MEDS ORDERED: ETOMIDATE 20 MG/10 ML VIAL IV ONE (02:48)
[2020-09-08] MEDS ORDERED: ROCURONIUM 50 MG/5 ML VIAL IV ONE (02:48)
[2020-09-08 03:29] VITALS: O2SAT 78
[2020-09-08 07:47] VITALS: BP 110/70; TEMP 99.8
--- NOTE | 2020-09-09 16:14 | EKG ---
Test Date: 2020-09-07 Test Time: 14:53:25 Metal Room Dental Technician: DUSTIN MEASUREMENT RESULTS: Intervals: Rate: 115 MS: QRSD: 78 QT: 288 QTc: 398 [place]: P: MS: QRS: 9 T: -22 INTERPRETIVE STATEMENTS: Atrial fibrillation with rapid ventricular response Nonspecific ST and T wave abnormality Abnormal ECG Compared to ECG 08/19/2020 16:21:03 ST (T wave) deviation now present T-wave abnormality no longer present Electronically Signed On 09-09-20 16:09:56 ESTHETICIAN by Leobardo Brito
== END 2020-09-08 02:49 | disposition expired | DRG 177 ==
LOC: ER 14:03 → ERHOLD 18:18
PROVIDERS: ADMIT Hospitalist; ATTEND Hospitalist
PROC: 5A12012 Performance of Cardiac Output, Single, Manual (ICD-10-PCS; principal; 2020-09-07)
PROC: 5A09357 Assistance with Respiratory Ventilation, Less than 24 Consecutive Hours, Continuous Positive Airway Pressure (ICD-10-PCS; 2020-09-07)
DX: U07.1 COVID-19 (principal); J80 Acute respiratory distress syndrome; J12.89 Other viral pneumonia; I46.9 Cardiac arrest, cause unspecified; I48.20 Chronic atrial fibrillation, unspecified; F41.9 Anxiety disorder, unspecified; E78.5 Hyperlipidemia, unspecified; I10 Essential (primary) hypertension; Z88.1 Allergy status to other antibiotic agents; Z79.82 Long term (current) use of aspirin; Z79.52 Long term (current) use of systemic steroids; Z79.01 Long term (current) use of anticoagulants; Z87.891 Personal history of nicotine dependence; Z86.19 Personal history of other infectious and parasitic diseases; Z79.899 Other long term (current) drug therapy; Z86.73 Personal history of transient ischemic attack (TIA), and cerebral infarction without residual deficits; Z20.828 Contact with and (suspected) exposure to other viral communicable diseases
CPT/HCPCS: 31500; 36415; 51702; 71045; 71260; 80048; 80076; 81003; 82150; 82550; 82553; 82805; 82947; 83605; 83690; 84145; 84484; 85025; 85610; 85730; 87040; 92950; 93005; 94660; 99285; J0171; J0696; J2704; J7030; J7040; Q9967; U0003